=== PATIENT | female | born 1960 | race Caucasian/White ===

== ENCOUNTER 2018-02-11 08:37 | Emergency (ER) | payer SELFPAY ==
--- NOTE | 2018-02-11 09:04 | EDPHYS ---
Physician Documentation [facility] Name: Samantha Decker Age: 57 yrs Sex: Female : 1960 Arrival Date: 02/11/2018 Time: 08:42 Bed 13 Private MD: None, None ED Physician Catina Turner HPI: 02/11 09:00 This 57 yrs old Female presents to ER via Ambulatory with complaints of ma2 Cough, Chest Congestion, Back Pain. 09:00 This 57 yrs old Female presents to ER via Ambulatory with complaints of ma2 Cough, Chest Congestion, Back Pain. 09:00 The patient or guardian reports cough. Onset: The symptoms/episode began/occurred ma2 gradually, 2 week(s) ago. Severity of symptoms: At their worst the symptoms were moderate, in the emergency department the symptoms have improved. Modifying factors: The symptoms are alleviated by nothing, the symptoms are aggravated by exertion. Associated signs and symptoms: Pertinent positives: Pertinent negatives: chest pain, diarrhea, ear ache, fever, nausea, rhinorrhea, sore throat, vomiting. healthy non smoker here with cough x 2 weeks . Historical: - Allergies: 08:53 No Known Allergies; ss - PMHx: 08:53 Hypothyroidism; Anxiety; GERD; ss - PSHx: 08:53 Thyroidectomy; Gastric Bypass; ss - Immunization history:: Adult Immunizations up to date. - Social history:: Smoking status: Patient/guardian denies using tobacco, Patient/guardian denies using alcohol, street drugs, The patient lives with family. - Ebola Screening: : Patient denies exposure to infectious person Patient denies travel to an Ebola-affected area in the 21 days before illness onset. - Family history:: not pertinent. ROS: 09:00 Respiratory: Positive for cough, Negative for dyspnea on exertion, hemoptysis, ma2 orthopnea, shortness of breath, sputum production, wheezing, acute changes. 09:00 All other systems are negative. Exam: 09:00 Constitutional: This is a well developed, well nourished patient who is awake, alert, ma2 and in no acute distress. Chest/axilla: Normal chest wall appearance and motion. Nontender with no deformity. No lesions are appreciated. Cardiovascular: Regular rate and rhythm with a normal S1 and S2. No gallops, murmurs, or rubs. Normal PMI, no JVD. No pulse deficits. Respiratory: Lungs have equal breath sounds bilaterally, clear to auscultation and percussion. No rales, rhonchi or wheezes noted. No increased work of breathing, no retractions or nasal flaring. Abdomen/GI: Soft, non-tender, with normal bowel sounds. No distension or tympany. No guarding or rebound. No evidence of tenderness throughout. Back: No spinal tenderness. No costovertebral tenderness. Full range of motion. MS/ Extremity: Pulses equal, no cyanosis. Neurovascular intact. Full, normal range of motion. Vital Signs: 08:53 BP 133 / 75; Pulse 81; Resp 16; Temp 97.8(TE); Pulse Ox 100% on R/A; Weight 68.49 kg; ss Height 5 ft. 6 in. (167.64 cm); Pain 7/10; 09:57 BP 127 / 78; Pulse 91; Resp 18; Temp 97.6; Pulse Ox 99% on R/A; ph 08:53 Body Mass Index 24.37 (68.49 kg, 167.64 cm) ss MDM: 08:47 Patient medically screened. ma2 09:00 Differential Diagnosis: Bronchitis Sinusitis Pharyngitis Allergic Rhinitis Asthma ma2 Exacerbation. 09:00 Data reviewed: vital signs, nurses notes. Data interpreted: floor covering layer: not ma2 applicable for this patient encounter. Counseling: I had a detailed discussion with the patient and/or guardian regarding: the historical points, exam findings, and any diagnostic results supporting the discharge/admit diagnosis, the presence of at least one elevated blood pressure reading (>120/80) during this emergency department visit, lab results, the need for outpatient follow up. Response to treatment: the patient's symptoms have markedly improved after treatment. Administered Medications: 09:20 Drug: AZITHromycin 500 mg Route: PO; ph 09:58 Follow up: Response: No adverse reaction ph 09:21 Drug: DuoNeb (3:1) (2.5 mg - 0.5 mg) 3 ml Route: Nebulizer; ph 09:59 Follow up: Response: No adverse reaction ph 09:21 Drug: TORadol 60 mg Route: IM; Site: right deltoid; ph 09:59 Follow up: Response: No adverse reaction; Pain is decreased ph Disposition: 02/11/18 09:03 Discharged to Home. Impression: Acute upper respiratory infection, unspecified. - Condition is Stable. - Discharge Instructions: Upper Respiratory Infection, Adult. - Prescriptions for Tylenol- Codeine #3 300-30 mg Oral Tablet - take 2 tablet by ORAL route every 6 hours As needed; 30 tablet. Zithromax Z- Ray 250 mg Oral Tablet - take 1 tablet by ORAL route as directed for 5 days Day 1 - take two (2) tablets one time. Day 2, 3, 4 , 5 take one (1) tablet once daily.; 6 tablet. Albuterol Sulfate 90 mcg/actuation - inhale 1-2 puff by INHALATION route every 4-6 hours; 1 Inhaler. - Medication Reconciliation Form, Thank You Letter, Antibiotic Education, Prescription Opioid Use form. - Follow up: Private Physician; When: Tomorrow; Reason: Continuance of care. - Problem is new. - Symptoms are unchanged. Signatures: Marlene Dickson RN RN Leah Leyva RN RN Catina Turner MD MD ma2 Corrections: (The following items were deleted from the chart) 09:59 09:03 02/11/2018 09:03 Discharged to Home. Impression: Acute upper respiratory ph infection, unspecified. Condition is Stable. Forms are Medication Reconciliation Form, Thank You Letter, Antibiotic Education, Prescription Opioid Use. Follow up: Private Physician; When: Tomorrow; Reason: Continuance of care. Problem is new. Symptoms are unchanged. ma2
--- NOTE | 2018-02-11 09:04 | ER ---
Nurse's Notes [facility] Name: Samantha Decker Age: 57 yrs Sex: Female : 1960 Arrival Date: 02/11/2018 Time: 08:42 Bed 13 Private MD: None, None Diagnosis: Acute upper respiratory infection, unspecified Presentation: 02/11 08:50 Presenting complaint: Patient states: cough, chest congestion and nasal drainage x 1.5 ss weeks. Pt reports she has had low back pain x 3 days she believes from coughing. Transition of care: patient was not received from another setting of care. Onset of symptoms was February 01, 2018. Risk Assessment: Do you want to hurt yourself or someone else? Patient reports no desire to harm self or others. Initial Sepsis Screen: Does the patient meet any 2 criteria? No. Patient's initial sepsis screen is negative. Does the patient have a suspected source of infection? Yes: Productive cough/pneumonia. Care prior to arrival: None. 08:50 Method Of Arrival: Ambulatory ss 08:50 Acuity: KARRIE 3 ss Historical: - Allergies: 08:53 No Known Allergies; ss - PMHx: 08:53 Hypothyroidism; Anxiety; GERD; ss - PSHx: 08:53 Thyroidectomy; Gastric Bypass; ss - Immunization history:: Adult Immunizations up to date. - Social history:: Smoking status: Patient/guardian denies using tobacco, Patient/guardian denies using alcohol, street drugs, The patient lives with family. - Ebola Screening: : Patient denies exposure to infectious person Patient denies travel to an Ebola-affected area in the 21 days before illness onset. - Family history:: not pertinent. Screenin:54 Abuse screen: Denies threats or abuse. Denies injuries from another. Nutritional ph screening: No deficits noted. Tuberculosis screening: No symptoms or risk factors identified. Fall Risk None identified. Assessment: 09:15 General: Appears in no apparent distress. uncomfortable, slender, well groomed, ph Behavior is calm, cooperative, appropriate for age. Pain: Complains of pain in mid back area. Neuro: Level of Consciousness is awake, alert, obeys commands, Oriented to person, place, time, situation. Cardiovascular: Capillary refill < 3 seconds in bilateral fingers Patient's skin is warm and dry. Respiratory: Reports cough that is pain with cough pain with movement pain with respiration Airway is patent Respiratory effort is even, unlabored, Respiratory pattern is regular, symmetrical, Breath sounds are clear bilaterally. GI: No signs and/or symptoms were reported involving the gastrointestinal system. Patient currently denies diarrhea, nausea, vomiting. Derm: Skin is intact, is fragile, Skin is pink, warm \T\ dry. Musculoskeletal: Circulation, motion, and sensation intact. Range of motion: intact in all extremities. 09:54 Reassessment: Patient appears in no apparent distress at this time. Patient and/or ph family updated on plan of care and expected duration. Pain level reassessed. Patient is alert, oriented x 3, equal unlabored respirations, skin warm/dry/pink. Pt reports that breathing has improved after neb tx, provided pt w/ list of PCPs and instructed her to follow-up. Vital Signs: 08:53 BP 133 / 75; Pulse 81; Resp 16; Temp 97.8(TE); Pulse Ox 100% on R/A; Weight 68.49 kg; ss Height 5 ft. 6 in. (167.64 cm); Pain 7/10; 09:57 BP 127 / 78; Pulse 91; Resp 18; Temp 97.6; Pulse Ox 99% on R/A; ph 08:53 Body Mass Index 24.37 (68.49 kg, 167.64 cm) ED Course: 08:42 Patient arrived in ED. sb2 08:43 None, None is Private Physician. sb2 08:46 Catina Turner MD is Attending Physician. ma2 08:52 Triage completed. ss 08:53 Arm band placed on right wrist. ss 08:54 Leah Leyva, FAN is Primary Nurse. ph 08:55 Patient has correct armband on for positive identification. Placed in gown. Bed in low ph position. Call light in reach. Side rails up X 1. Pulse ox on. NIBP on. Warm blanket given. 09:57 Assist provider with bone marrow aspiration. Patient did not have IV access during this emergency room visit. Administered Medications: 09:20 Drug: AZITHromycin 500 mg Route: PO; ph 09:58 Follow up: Response: No adverse reaction ph 09:21 Drug: DuoNeb (3:1) (2.5 mg - 0.5 mg) 3 ml Route: Nebulizer; ph 09:59 Follow up: Response: No adverse reaction ph 09:21 Drug: TORadol 60 mg Route: IM; Site: right deltoid; ph 09:59 Follow up: Response: No adverse reaction; Pain is decreased ph Outcome: 09:03 Discharge ordered by . michelle 09:58 Discharged to home ambulatory. ph 09:58 Condition: good 09:58 Discharge instructions given to patient, Instructed on discharge instructions, follow up and referral plans. medication usage, Demonstrated understanding of instructions, follow-up care, medications, Prescriptions given X 3. 09:59 Patient left the ED. ph Signatures: Marlene Dickson, RN RN Leah Leyva RN RN Catina Turner MD MD ma2 Acacia Babcock sb2
[2018-02-11] MEDS ORDERED: AZITHROMYCIN 250 MG TAB ONE (09:17)
[2018-02-11] MEDS ORDERED: IPRATROPIUM BROM 0.5MG/2.5ML ONE (09:18)
[2018-02-11] MEDS ORDERED: ALBUTEROL 2.5 MG/3 ML NEB SOL ONE (09:18)
[2018-02-11] MEDS ORDERED: KETOROLAC 30 MG/ML INJ ONE (09:18)
== END 2018-02-11 09:59 | disposition home or self-care (01) ==
LOC: ER 08:37
DX: J06.9 Acute upper respiratory infection, unspecified (principal)
CPT/HCPCS: 94640; 96372; 99285

== ENCOUNTER 2018-09-01 10:30 | Emergency (ER) | payer SELFPAY ==
[2018-09-01] MEDS ORDERED: ONDANSETRON 4 MG/2 ML VIAL ONE (11:07)
[2018-09-01] MEDS ORDERED: KETOROLAC 30 MG/ML INJ ONE (11:07)
[2018-09-01] MEDS ORDERED: NA CHLORIDE 0.9% 1,000 ML ONE (11:07)
--- NOTE | 2018-09-01 11:26 | RAD REPORT ---
EXAM DESCRIPTION: CT - Head C Spine Cap Wo Con - 09/01/2018 11:09 am CLINICAL HISTORY: Trauma, head and neck injury. Chest, abdomen and pelvis pain. PAIN COMPARISON: Facial Bones W/ Mpr dated 09/01/2018 TECHNIQUE: CT head without contrast. CT cervical spine without contrast with coronal and sagittal reformatted images. CT chest, abdomen and pelvis without contrast with coronal and sagittal reformatted images of the spi ne. All CT scans are performed using dose optimization technique as appropriate and may include automated exposure control or mA/KV adjustment according to patient size. FINDINGS: CT HEAD WITHOUT CONTRAST: No intracranial hemorrhage, hydrocephalus or extra-axial fluid collection. No areas of brain edema o r midline shift. The paranasal sinuses and mastoids are clear. The calvarium is intact. CT CERVICAL SPINE WITHOUT CONTRAST: No fracture or subluxation. The prevertebral soft tissues are normal in thickness. CT CHEST, ABDOMEN, PELVIS WITHOUT CONTRAST: NOTE: Lack of contrast is a significant limitation in the assessment of trauma related findings. Spec ifically, solid organ, vascular and bowel evaluation is significantly limited. The lungs are clear.Postsurgical changes are present at the gastroesophageal junction region. A small hiatal hernia is present.No pneumothorax or pericardial/pleural fluid. No evidence of intra-abdominal visceral injury, free fluid or free air is seen within the above detai led limitations. No concerning pelvic findings. No fractures. IMPRESSION: Negative for acute traumatic findings within the above detailed limitations.
--- NOTE | 2018-09-01 11:27 | RAD REPORT ---
EXAM DESCRIPTION: CT - CTFB CLINICAL HISTORY: PAIN Trauma, right-sided facial pain and swelling. COMPARISON: No comparisons TECHNIQUE: Axial 2 mm thick images of the face were obtained with sagittal and coronal reconstructio n images. All CT scans are performed using dose optimization technique as appropriate and may include automated exposure control or mA/KV adjustment according to patient size. FINDINGS: No acute facial bone fracture is seen.The mandible is intact. The globes and orbital contents are grossly unremarkable.The paranasal sinuses and mastoids are clear . IMPRESSION: Negative for facial bone fracture.
--- NOTE | 2018-09-01 11:41 | RAD REPORT ---
EXAM DESCRIPTION: RAD - Knee Left 3 View - 09/01/2018 11:34 am CLINICAL HISTORY: PAIN Fall, trauma, knee pain COMPARISON: No comparisons FINDINGS: Mild arthritic changes are present. No fracture, dislocation or aggressive marrow lesion. Small amount of suprapatellar joint fluid evident.
[2018-09-01 11:54] LABS: Absolute Monocytes 0.5 K/uL (0.1-1.3); Absolute Neutrophil 3.5 K/uL (1.8-8.0); Basophils % 0.5 % (0-1.3); Eosinophils % 1.3 % (0-4.4); Hematocrit 35.2 % (36.0-45.0); Lymphocytes % 32.4 % (15.3-44.8); MPV 8.4 fL (7.6-11.3); Monocytes % 8.5 % (3.3-12.3)
--- NOTE | 2018-09-01 11:59 | ER ---
Nurse's Notes [facility] Name: Samantha Decker Age: 58 yrs Sex: Female : 1960 Arrival Date: 09/01/2018 Time: 10:33 Bed 5 Private MD: None, None Diagnosis: Fall due to bumping against object;Low back pain;Urinary tract infection, site not specified;Contusion of other part of head-facial Presentation: 09/01 10:35 Presenting complaint: Patient states: i tripped and fell Friday, we are packing tw2 to move and i had my hands in my robe and i tripped and fell landed right on your face, the pain has gotten worse, i was dizzy earlier now i am having black spots in my vision, i hit my knee too and my lower back hurts on my left side, left knee and left back. Transition of care: patient was not received from another setting of care. Onset of symptoms was September 01, 2018. Risk Assessment: Do you want to hurt yourself or someone else? Patient reports no desire to harm self or others. Initial Sepsis Screen: Does the patient meet any 2 criteria? No. Patient's initial sepsis screen is negative. Does the patient have a suspected source of infection? No. Patient's initial sepsis screen is negative. Care prior to arrival: None. 10:35 Method Of Arrival: Ambulatory tw2 10:35 Acuity: KARRIE 3 tw2 10:42 Mechanism of Injury: Fall from standing position. Trauma event details: Injury occurred sv in the [facility], Injury occurred: at home. Injury occurred: August 30, 2018. Triage Assessment: 10:36 General: Appears in no apparent distress. Behavior is calm, cooperative, appropriate tw2 for age. Pain: Complains of pain in face, right ear, left ear and left knee. Neuro: Reports headache "all over and it has gotten worse" "i am seeing black spots in the LEFT eye and sometimes in my right eye". Trauma Activation: Not Applicable Physician: ED Physician; Name: ; Notified At: ; Arrived At: Physician: General Surgeon; Name: ; Notified At: ; Arrived At: Physician: Radiology; Name: ; Notified At: ; Arrived At: Physician: Respiratory; Name: ; Notified At: ; Arrived At: Physician: Lab; Name: ; Notified At: ; Arrived At: Historical: - Allergies: 10:39 No Known Allergies; tw2 - Home Meds: 10:39 Celexa Oral [Active]; Omeprazole Oral [Active]; levothyroxine 137 mcg tab 2 tabs once tw2 daily [Active]; - PMHx: 10:39 Anxiety; GERD; Hypothyroidism; tw2 - PSHx: 10:39 Thyroidectomy; Gastric Bypass; tw2 - Immunization history:: Adult Immunizations Last tetanus immunization: < 10 years ago Last tetanus immunization:. - Social history:: Smoking status: . - Ebola Screening: : Patient denies travel to an Ebola-affected area in the 21 days before illness onset. - Family history:: not pertinent. Screenin:41 Abuse screen: Denies threats or abuse. Denies injuries from another. Nutritional sv screening: No deficits noted. Tuberculosis screening: No symptoms or risk factors identified. Fall Risk None identified. Assessment: 11:25 General: Appears in no apparent distress. uncomfortable, slender, well groomed, well sv developed, Behavior is calm, cooperative, appropriate for age. Pain: Complains of pain in face, scalp, back, left arm and left leg Pain currently is 10 out of 10 on a pain scale. Pain began 2-3 days ago. Is continuous. Neuro: Level of Consciousness is awake, alert, obeys commands, Oriented to person, place, time, situation, Moves all extremities. Full function Gait is steady, Speech is normal, Reports "seeing floaters" in her vision. . Respiratory: Airway is patent Respiratory effort is even, unlabored, Respiratory pattern is regular, symmetrical. Derm: Skin is pink, warm \\T\\ dry. Bruising that is dark purple, on face. Musculoskeletal: Range of motion: intact in all extremities. 12:20 Reassessment: Patient appears in no apparent distress at this time. No changes from sv previously documented assessment. Patient and/or family updated on plan of care and expected duration. Pain level reassessed. Patient is alert, oriented x 3, equal unlabored respirations, skin warm/dry/pink. 13:10 Reassessment: Patient appears in no apparent distress at this time. No changes from sv previously documented assessment. Patient and/or family updated on plan of care and expected duration. Pain level reassessed. Patient is alert, oriented x 3, equal unlabored respirations, skin warm/dry/pink. Vital Signs: 10:39 BP 161 / 80; Pulse 70; Resp 17; Temp 97.5(TE); Pulse Ox 100% on R/A; Weight 76.2 kg tw2 (R); Height 5 ft. 7 in. (170.18 cm); Pain 10/10; 11:30 BP 162 / 77; Pulse 63 MON; Resp 17; Pulse Ox 100% ; sv 10:39 Body Mass Index 26.31 (76.20 kg, 170.18 cm) tw2 11:30 Sinus Rhythm sv [place] Coma Score: 10:41 Eye Response: spontaneous(4). Verbal Response: oriented(5). Motor Response: obeys sv commands(6). Total: 15. Trauma Score (Adult): 10:41 Eye Response: spontaneous(1); Verbal Response: oriented(1); Motor Response: obeys sv commands(2); Systolic BP: > 89 mm Hg(4); Respiratory Rate: 10 to 29 per min(4); Nick Score: 15; Trauma Score: 12 ED Course: 10:33 Patient arrived in ED. mr 10:33 None, None is Private Physician. mr 10:36 Triage completed. tw2 10:37 Arm band placed on. tw2 10:40 Berry Arzola MD is Attending Physician. rao 10:41 Mirian Messina, FAN is Primary Nurse. sv 10:41 Patient has correct armband on for positive identification. Placed in gown. Bed in low sv position. Call light in reach. Door closed. Head of bed elevated. 10:42 Patient maintains SpO2 saturation greater than 95% on room air. sv 10:43 Thermoregulation: warm blanket given to patient. sv 10:[address] via stretcher. sv 11:07 CT completed. Patient tolerated procedure well. Patient moved back from CT. [id number] 11:09 CT Traumagram (Head C Spine CAP wo con) In Process Unspecified. EDMS 11:09 Facial Bones W/O Con CT In Process Unspecified. EDMS 11:29 X-ray completed. Portable x-ray completed in exam room. Patient tolerated procedure mh1 well. 11:30 Knee Left 3 View XRAY In Process Unspecified. EDMS 11:30 Initial lab(s) drawn, by me, sent to lab. T\\T\\S collected, blood band applied to patient. sv Inserted saline lock: 20 gauge in right antecubital area, using aseptic technique. Blood collected. Flushed right antecubital with 5 ml normal saline. 11:59 Don Ozuna MD is Referral Physician. rao 12:50 No provider procedures requiring assistance completed. IV discontinued, intact, sv bleeding controlled, No redness/swelling at site. Pressure dressing applied. Knee immobilizer applied on left knee. Administered Medications: 11:35 Drug: NS 0.9% 1000 ml Route: IV; Rate: 1 bolus; Site: right antecubital; sv 12:30 Follow up: Response: No adverse reaction; IV Status: Completed infusion; IV Intake: sv 1000ml 11:35 Drug: Zofran 4 mg Route: IVP; Site: right antecubital; sv 12:00 Follow up: Response: No adverse reaction sv 11:37 Drug: TORadol 30 mg Route: IVP; Site: right antecubital; sv 12:00 Follow up: Response: No adverse reaction sv Intake: 10:41 PO: 0ml; Total: 0ml. sv 12:30 IV: 1000ml; Total: 1000ml. sv Output: 10:41 Urine: 0ml; Total: 0ml. sv Outcome: 11:59 Discharge ordered by . rao 13:16 Discharged to home via wheelchair. sv 13:16 Condition: stable 13:16 Discharge instructions given to patient, Instructed on discharge instructions, follow up and referral plans. no drinking with medication, no driving heavy equipment, medication usage, knee immobilizer application Demonstrated understanding of instructions, follow-up care, medications, knee immobilizer application Prescriptions given X 3. 13:17 Patient left the ED. sv Signatures: Dispatcher [employer] Mirian Osorio RN RN sv Anderson, Corey, MD MD cha Rivera, Natalya Song 1 Rupal Flores RN RN tw2 Michell [email or web address]
--- NOTE | 2018-09-01 12:00 | EDPHYS ---
Physician Documentation [facility] Name: Samantha Decker Age: 58 yrs Sex: Female : 1960 Arrival Date: 09/01/2018 Time: 10:33 Bed 5 Private MD: None, None ED Physician Berry Arzola HPI: 09/01 10:51 This 58 yrs old Female presents to ER via Ambulatory with complaints of Fall rao Injury. 10:51 Details of fall: The patient fell from an upright position, while walking. Onset: The rao symptoms/episode began/occurred 3 day(s) ago. Associated injuries: The patient sustained injury to the head, injury to the low back, left knee, decreased range of motion, painful injury, swelling. Severity of symptoms: At their worst the symptoms were mild, moderate, in the emergency department the symptoms are unchanged. The patient has not experienced similar symptoms in the past. Historical: - Allergies: 10:39 No Known Allergies; tw2 - Home Meds: 10:39 Celexa Oral [Active]; Omeprazole Oral [Active]; levothyroxine 137 mcg tab 2 tabs once tw2 daily [Active]; - PMHx: 10:39 Anxiety; GERD; Hypothyroidism; tw2 - PSHx: 10:39 Thyroidectomy; Gastric Bypass; tw2 - Immunization history:: Adult Immunizations Last tetanus immunization: < 10 years ago Last tetanus immunization:. - Social history:: Smoking status: . - Ebola Screening: : Patient denies travel to an Ebola-affected area in the 21 days before illness onset. - Family history:: not pertinent. ROS: 10:51 Constitutional: Negative for fever, chills, and weight loss, Eyes: Negative for injury, rao pain, redness, and discharge, Neck: Negative for injury, pain, and swelling, Cardiovascular: Negative for chest pain, palpitations, and edema, Respiratory: Negative for shortness of breath, cough, wheezing, and pleuritic chest pain, Abdomen/GI: Negative for abdominal pain, nausea, vomiting, diarrhea, and constipation, Back: Negative for injury and pain, : Negative for injury, bleeding, discharge, and swelling, MS/Extremity: Negative for injury and deformity, Skin: Negative for injury, rash, and discoloration, Neuro: Negative for headache, weakness, numbness, tingling, and seizure, Psych: Negative for depression, anxiety, suicide ideation, homicidal ideation, and hallucinations, Allergy/Immunology: Negative for hives, rash, and allergies, Endocrine: Negative for neck swelling, polydipsia, polyuria, polyphagia, and marked weight changes, Hematologic/Lymphatic: Negative for swollen nodes, abnormal bleeding, and unusual bruising. 10:51 ENT: Positive for injury or acute deformity, contusion, sinus pain. 10:51 Back: Positive for decreased range of motion, pain at rest, of the lumbar area. Exam: 10:51 Constitutional: This is a well developed, well nourished patient who is awake, alert, rao and in no acute distress. Eyes: Pupils equal round and reactive to light, extra-ocular motions intact. Lids and lashes normal. Conjunctiva and sclera are non-icteric and not injected. Cornea within normal limits. Periorbital areas with no swelling, redness, or edema. ENT: Nares patent. No nasal discharge, no septal abnormalities noted. Tympanic membranes are normal and external auditory canals are clear. Oropharynx with no redness, swelling, or masses, exudates, or evidence of obstruction, uvula midline. Mucous membranes moist. Neck: Trachea midline, no thyromegaly or masses palpated, and no cervical lymphadenopathy. Supple, full range of motion without nuchal rigidity, or vertebral point tenderness. No Meningismus. Chest/axilla: Normal chest wall appearance and motion. Nontender with no deformity. No lesions are appreciated. Cardiovascular: Regular rate and rhythm with a normal S1 and S2. No gallops, murmurs, or rubs. Normal PMI, no JVD. No pulse deficits. Respiratory: Lungs have equal breath sounds bilaterally, clear to auscultation and percussion. No rales, rhonchi or wheezes noted. No increased work of breathing, no retractions or nasal flaring. Abdomen/GI: Soft, non-tender, with normal bowel sounds. No distension or tympany. No guarding or rebound. No evidence of tenderness throughout. Female : Normal external genitalia. Skin: Warm, dry with normal turgor. Normal color with no rashes, no lesions, and no evidence of cellulitis. MS/ Extremity: Pulses equal, no cyanosis. Neurovascular intact. Full, normal range of motion. Neuro: Awake and alert, GCS 15, oriented to person, place, time, and situation. Cranial nerves II-XII grossly intact. Motor strength 5/5 in all extremities. Sensory grossly intact. Cerebellar exam normal. Normal gait. Psych: Awake, alert, with orientation to person, place and time. Behavior, mood, and affect are within normal limits. 10:51 Head/face: Noted is contusion, raccoon eye(s), bilaterally. 10:51 Back: pain, that is moderate, of the lumbar area, ROM is painful, normal spinal alignment noted, CVA tenderness, that is mild, vertebral tenderness, is not appreciated, muscle spasm, is appreciated in the left low back, left mid back, right mid back and right low back. Vital Signs: 10:39 BP 161 / 80; Pulse 70; Resp 17; Temp 97.5(TE); Pulse Ox 100% on R/A; Weight 76.2 kg tw2 (R); Height 5 ft. 7 in. (170.18 cm); Pain 10/10; 11:30 BP 162 / 77; Pulse 63 MON; Resp 17; Pulse Ox 100% ; sv 10:39 Body Mass Index 26.31 (76.20 kg, 170.18 cm) tw2 11:30 Sinus Rhythm sv Nick Coma Score: 10:41 Eye Response: spontaneous(4). Verbal Response: oriented(5). Motor Response: obeys sv commands(6). Total: 15. Trauma Score (Adult): 10:41 Eye Response: spontaneous(1); Verbal Response: oriented(1); Motor Response: obeys sv commands(2); Systolic BP: > 89 mm Hg(4); Respiratory Rate: 10 to 29 per min(4); Nick Score: 15; Trauma Score: 12 MDM: 10:40 Patient medically screened. [facility] 10:55 Data reviewed: vital signs, nurses notes, lab test result(s), radiologic studies, CT rao scan, plain films. 09/01 10:51 Order name: Basic Metabolic Panel; Complete Time: 12:19 [facility] 09/01 10:51 Order name: CBC with Diff; Complete Time: 11:58 [facility] 09/01 10:51 Order name: Creatinine for Radiology; Complete Time: 12:19 [facility] 09/01 10:51 Order name: Type And Screen [facility] 09/01 11:35 Order name: Urine Dipstick--Ancillary (enter results) 09/01 10:51 Order name: CT Traumagram (Head C Spine CAP wo con); Complete Time: 11:53 [facility] 09/01 10:51 Order name: Labs collected and sent; Complete Time: 11:50 [facility] 09/01 10:51 Order name: Urine Dipstick-Ancillary (obtain specimen); Complete Time: 11:44 [facility] 09/01 10:51 Order name: Facial Bones W/O Con CT; Complete Time: 11:53 [facility] 09/01 10:51 Order name: Knee Left 3 View XRAY; Complete Time: 11:53 [facility] 09/01 11:55 Order name: Knee Immobilizer; Complete Time: 13:15 [facility] 09/01 11:55 Order name: Ice pack; Complete Time: 13:15 [facility] Administered Medications: 11:35 Drug: NS 0.9% 1000 ml Route: IV; Rate: 1 bolus; Site: right antecubital; sv 12:30 Follow up: Response: No adverse reaction; IV Status: Completed infusion; IV Intake: sv 1000ml 11:35 Drug: Zofran 4 mg Route: IVP; Site: right antecubital; sv 12:00 Follow up: Response: No adverse reaction sv 11:37 Drug: TORadol 30 mg Route: IVP; Site: right antecubital; sv 12:00 Follow up: Response: No adverse reaction sv Disposition: 09/01/18 11:59 Discharged to Home. Impression: Fall due to bumping against object, Low back pain, Urinary tract infection, site not specified, Contusion of other part of head - facial. - Condition is Stable. - Discharge Instructions: Back Pain, Adult, Facial or Scalp Contusion, Musculoskeletal Pain, Urinary Tract Infection, Adult, Back Injury Prevention, Etci-nc-Hmsz, Urinary Tract Infection, Adult, Lwzk-yt-[id number], Facial or Scalp Contusion, Tkay-xr-Hphw. - Prescriptions for Skelaxin 800 mg Oral Tablet - take 1 tablet by ORAL route every 8 hours As needed; 21 tablet. Tylenol- Codeine #3 300-30 mg Oral Tablet - take 2 tablet by ORAL route every 6 hours As needed; 30 tablet. Bactrim DS 800- 160 mg Oral Tablet - take 1 tablet by ORAL route every 12 hours for 7 days; 14 tablet. - Medication Reconciliation Form, Thank You Letter, Antibiotic Education, Prescription Opioid Use, Work release form form. - Follow up: Private Physician; When: 2 - 3 days; Reason: Recheck today's complaints, Continuance of care, Re-evaluation by your physician. Follow up: Don Ozuna; When: 2 - 3 days; Reason: Recheck today's complaints, Continuance of care, Re-evaluation by your physician. - Problem is new. - Symptoms have improved. Signatures: Dispatcher [employer] Mirian Osorio RN RN sv Anderson, Corey, MD MD cha Wise, Tara, RN RN tw2 Corrections: (The following items were deleted from the chart) 13:17 11:59 09/01/2018 11:59 Discharged to Home. Impression: Fall due to bumping against sv object; Low back pain; Urinary tract infection, site not specified; Contusion of other part of head - facial. Condition is Stable. Discharge Instructions: Back Pain, Adult, Facial or Scalp Contusion, Musculoskeletal Pain, Urinary Tract Infection, Adult, Back Injury Prevention, Hoid-lt-Gqpc, Urinary Tract Infection, Adult, Ewrv-xw-Jykg, Facial or Scalp Contusion, Jvpv-kp-Tusw. Prescriptions for Skelaxin 800 mg Oral Tablet - take 1 tablet by ORAL route every 8 hours As needed; 21 tablet, Tylenol-Codeine #3 300-30 mg Oral Tablet - take 2 tablet by ORAL route every 6 hours As needed; 30 tablet, Bactrim DS 800-160 mg Oral Tablet - take 1 tablet by ORAL route every 12 hours for 7 days; 14 tablet. and Forms are Medication Reconciliation Form, Thank You Letter, Antibiotic Education, Prescription Opioid Use. Follow up: Private Physician; When: 2 - 3 days; Reason: Recheck today's complaints, Continuance of care, Re-evaluation by your physician. Follow up: Don Ozuna; When: 2 - 3 days; Reason: Recheck today's complaints, Continuance of care, Re-evaluation by your physician. Problem is new. Symptoms have improved. rao
[2018-09-01 12:08] LABS: Potassium 4.1 mmol/L (3.5-5.1)
[2018-09-01 12:50] LABS: Urine Blood 1+ (NEG); Urine Glucose NEGATIVE (NEG); Urine Protein NEGATIVE (NEG)
== END 2018-09-01 13:17 | disposition home or self-care (01) ==
LOC: ER 10:30
DX: S00.83XA Contusion of other part of head, initial encounter (principal); N39.0 Urinary tract infection, site not specified; W18.00XA Striking against unspecified object with subsequent fall, initial encounter; Y93.01 Activity, walking, marching and hiking; Y92.9 Unspecified place or not applicable; F41.9 Anxiety disorder, unspecified; E03.9 Hypothyroidism, unspecified; K21.9 Gastro-esophageal reflux disease without esophagitis
CPT/HCPCS: 36415; 70450; 70486; 71250; 72125; 76377; 80048; 81003; 85025; 86850; 86900; 86901; 96361; 96374; 96375; 99285; J2405; J7030

== ENCOUNTER 2019-02-16 08:57 | Emergency (ER) | payer SELFPAY ==
--- NOTE | 2019-02-16 10:46 | RAD REPORT ---
EXAM DESCRIPTION: CT - Head C Spine Mpr Wo Con - 02/16/2019 10:30 am CLINICAL HISTORY: Head and neck injury status post fall. Head and neck pain COMPARISON: CT August 2018 TECHNIQUE: Computed axial tomography of the head and cervical spine was obtained. Sagittal and coronal reconstruction was performed. All CT scans are performed using dose optimization technique as appropriate and may include automated exposure control or mA/KV adjustment according to patient size. FINDINGS: Mild left frontal scalp swelling An intracranial bleed is not seen. The ventricles are normal in caliber. An extra-axial fluid collect ion is not noted.Fluid within the visualized sinuses and mastoids is not seen A cervical fracture is not visualized. No dislocation is noted. IMPRESSION: No acute intracranial abnormality is seen. A cervical fracture is not visualized. If the patient continues to have symptoms to suggest intracra nial /spinal cord pathology then MRI would be recommended
--- NOTE | 2019-02-16 11:02 | ER ---
Nurse's Notes [facility] Name: Samantha Decker Age: 58 yrs Sex: Female : 1960 Arrival Date: 02/16/2019 Time: 08:59 Bed 6 Private MD: None, None Diagnosis: Fall due to bumping against object;Superficial injury of head;Low back pain Presentation: 02/16 09:12 Presenting complaint: Headache, left sided facial pain, mid back pain, and blurred hb vision in left eye after fall in shower 1 month ago. Transition of care: patient was not received from another setting of care. Onset of symptoms was December 2018. Risk Assessment: Do you want to hurt yourself or someone else? Patient reports no desire to harm self or others. Initial Sepsis Screen: Does the patient meet any 2 criteria? No. Patient's initial sepsis screen is negative. Does the patient have a suspected source of infection? No. Patient's initial sepsis screen is negative. Care prior to arrival: None. 09:12 Method Of Arrival: Ambulatory hb 09:12 Acuity: KARRIE 3 hb Historical: - Allergies: 09:16 No Known Allergies; hb - Home Meds: 09:16 omeprazole 40 mg oral cpDR once daily [Active]; levothyroxine 137 mcg tab 2 tabs once hb daily [Active]; Celexa 40 mg oral tab once daily [Active]; temazepam 30 mg Oral cap 1 cap twice a day [Active]; - PMHx: 09:16 Anxiety; GERD; Hypothyroidism; hb - PSHx: 09:16 Thyroidectomy; Gastric Bypass; hb - Immunization history:: Adult Immunizations up to date. - Social history:: Smoking status: Patient/guardian denies using tobacco. - Ebola Screening: : No symptoms or risks identified at this time. - Family history:: not pertinent. Screenin:38 Abuse screen: Denies threats or abuse. Denies injuries from another. Nutritional jl7 screening: No deficits noted. Tuberculosis screening: No symptoms or risk factors identified. Fall Risk None identified. Assessment: 09:38 General: Appears in no apparent distress. uncomfortable, Behavior is calm, cooperative, jl7 appropriate for age. Pain: Complains of pain in forehead and left eye Pain does not radiate. Pain currently is 8 out of 10 on a pain scale. Quality of pain is described as aching, Is continuous. Pain: Complains of pain in thoracic area Pain radiates to lumbar area and left low back Pain currently is 8 out of 10 on a pain scale. Quality of pain is described as aching, Is continuous. Neuro: Level of Consciousness is awake, alert, obeys commands, Oriented to person, place, time, situation. Cardiovascular: Patient's skin is warm and dry. Respiratory: Airway is patent Respiratory effort is even, unlabored, Respiratory pattern is regular, symmetrical. GI: No signs and/or symptoms were reported involving the gastrointestinal system. : No signs and/or symptoms were reported regarding the genitourinary system. EENT: No signs and/or symptoms were reported regarding the EENT system. Derm: Skin is pink, warm \T\ dry. Musculoskeletal: Tenderness present in thoracic area, lumbar area and left low back. Musculoskeletal: Tenderness present in forehead. 11:06 Reassessment: Dr. Arzola at bedside discussing plan of care. jl7 Vital Signs: 09:16 BP 153 / 87; Pulse 77; Resp 16; Temp 98.3; Pulse Ox 99% on R/A; Weight 77.11 kg; Height hb 5 ft. 6 in. (167.64 cm); Pain 8/10; 10:31 BP 151 / 79; Pulse 67; Resp 16 S; Pulse Ox 100% on R/A; jl7 09:16 Body Mass Index 27.44 (77.11 kg, 167.64 cm) hb Visual Acuity: 09:36 Left Eye Visual acuity 20/70, ; Right Eye Visual acuity 20/25, ; Both Eyes Visual jl7 acuity 20/20; Without Lenses; ED Course: 08:59 Patient arrived in ED. ag5 09:00 None, None is Private Physician. ag5 09:15 Triage completed. hb 09:16 Arm band placed on. hb 09:19 Nurys Bray RN is Primary Nurse. jl7 09:37 Berry Arzola MD is Attending Physician. rao 09:38 Patient has correct armband on for positive identification. Placed in gown. Bed in low jl7 position. Call light in reach. Side rails up X 1. monitor technician on. Pulse ox on. NIBP on. 10:[address] via stretcher. em2 10:33 CT Head C Spine In Process Unspecified. EDMS 10:36 CT completed. Patient tolerated procedure well. Patient moved to radiology via jb2 stretcher. 10:49 Lumbar Spine (3 Views) XRAY In Process Unspecified. EDMS 11:06 No provider procedures requiring assistance completed. Patient did not have IV access jl7 during this emergency room visit. Administered Medications: No medications were administered Outcome: 11:01 Discharge ordered by . rao 11:29 Discharged to home ambulatory. jlGiorgio 11:29 Condition: stable 11:29 Discharge instructions given to patient, Instructed on discharge instructions, follow up and referral plans. medication usage, Demonstrated understanding of instructions, follow-up care, medications, Prescriptions given X 3. 11:29 Patient left the ED. jl7 Signatures: Dispatcher [employer] EDNM Berry Arzola MD MD cha Buechter, Jesse jb2 Boris Henry 2 Radha Carrillo, RN RN Nurys Jean RN RN jl7 Chela Oneill 5
--- NOTE | 2019-02-16 11:02 | EDPHYS ---
Physician Documentation [facility] Name: Samantha Decker Age: 58 yrs Sex: Female : 1960 Arrival Date: 02/16/2019 Time: 08:59 Bed 6 Private MD: None, None ED Physician Berry Arzola HPI: 02/16 10:07 This 58 yrs old Female presents to ER via Ambulatory with complaints of Fall rao Injury, Headache, Back Pain. 10:07 Details of fall: The patient fell from an upright position, while standing, while rao walking. Onset: The symptoms/episode began/occurred 30 day(s) ago. Associated injuries: The patient sustained injury to the head, neck injury, injury to the low back. Severity of symptoms: At their worst the symptoms were moderate, in the emergency department the symptoms are unchanged. The patient has not experienced similar symptoms in the past. Historical: - Allergies: 09:16 No Known Allergies; hb - Home Meds: 09:16 omeprazole 40 mg oral cpDR once daily [Active]; levothyroxine 137 mcg tab 2 tabs once hb daily [Active]; Celexa 40 mg oral tab once daily [Active]; temazepam 30 mg Oral cap 1 cap twice a day [Active]; - PMHx: 09:16 Anxiety; GERD; Hypothyroidism; hb - PSHx: 09:16 Thyroidectomy; Gastric Bypass; hb - Immunization history:: Adult Immunizations up to date. - Social history:: Smoking status: Patient/guardian denies using tobacco. - Ebola Screening: : No symptoms or risks identified at this time. - Family history:: not pertinent. ROS: 10:07 Constitutional: Negative for fever, chills, and weight loss, Eyes: Negative for injury, rao pain, redness, and discharge, ENT: Negative for injury, pain, and discharge, Neck: Negative for injury, pain, and swelling, Cardiovascular: Negative for chest pain, palpitations, and edema, Respiratory: Negative for shortness of breath, cough, wheezing, and pleuritic chest pain, Abdomen/GI: Negative for abdominal pain, nausea, vomiting, diarrhea, and constipation, : Negative for injury, bleeding, discharge, and swelling, MS/Extremity: Negative for injury and deformity, Skin: Negative for injury, rash, and discoloration, Psych: Negative for depression, anxiety, suicide ideation, homicidal ideation, and hallucinations, Allergy/Immunology: Negative for hives, rash, and allergies, Endocrine: Negative for neck swelling, polydipsia, polyuria, polyphagia, and marked weight changes, Hematologic/Lymphatic: Negative for swollen nodes, abnormal bleeding, and unusual bruising. 10:07 Back: Positive for decreased range of motion, pain at rest, of the thoracic area and lumbar area. 10:07 Neuro: Positive for headache. Exam: 10:07 Constitutional: This is a well developed, well nourished patient who is awake, alert, rao and in no acute distress. Eyes: Pupils equal round and reactive to light, extra-ocular motions intact. Lids and lashes normal. Conjunctiva and sclera are non-icteric and not injected. Cornea within normal limits. Periorbital areas with no swelling, redness, or edema. ENT: Nares patent. No nasal discharge, no septal abnormalities noted. Tympanic membranes are normal and external auditory canals are clear. Oropharynx with no redness, swelling, or masses, exudates, or evidence of obstruction, uvula midline. Mucous membranes moist. Chest/axilla: Normal chest wall appearance and motion. Nontender with no deformity. No lesions are appreciated. Cardiovascular: Regular rate and rhythm with a normal S1 and S2. No gallops, murmurs, or rubs. Normal PMI, no JVD. No pulse deficits. Respiratory: Lungs have equal breath sounds bilaterally, clear to auscultation and percussion. No rales, rhonchi or wheezes noted. No increased work of breathing, no retractions or nasal flaring. Abdomen/GI: Soft, non-tender, with normal bowel sounds. No distension or tympany. No guarding or rebound. No evidence of tenderness throughout. Back: No spinal tenderness. No costovertebral tenderness. Full range of motion. Female : Normal external genitalia. Skin: Warm, dry with normal turgor. Normal color with no rashes, no lesions, and no evidence of cellulitis. MS/ Extremity: Pulses equal, no cyanosis. Neurovascular intact. Full, normal range of motion. Neuro: Awake and alert, GCS 15, oriented to person, place, time, and situation. Cranial nerves II-XII grossly intact. Motor strength 5/5 in all extremities. Sensory grossly intact. Cerebellar exam normal. Normal gait. Psych: Awake, alert, with orientation to person, place and time. Behavior, mood, and affect are within normal limits. 10:07 Head/face: Noted is contusion, that is deep, of the forehead and left eye. 10:07 Back: pain, that is moderate, ROM is painful, normal spinal alignment noted, CVA tenderness, is absent, vertebral tenderness, is not appreciated, muscle spasm, is not present. Vital Signs: 09:16 BP 153 / 87; Pulse 77; Resp 16; Temp 98.3; Pulse Ox 99% on R/A; Weight 77.11 kg; Height hb 5 ft. 6 in. (167.64 cm); Pain 8/10; 10:31 BP 151 / 79; Pulse 67; Resp 16 S; Pulse Ox 100% on R/A; jl7 09:16 Body Mass Index 27.44 (77.11 kg, 167.64 cm) hb Visual Acuity: 09:36 Left Eye Visual acuity 20/70, ; Right Eye Visual acuity 20/25, ; Both Eyes Visual jl7 acuity 20/20; Without Lenses; MDM: 09:37 Patient medically screened. [facility] 10:09 Data reviewed: vital signs, nurses notes, lab test result(s), radiologic studies, CT [facility] scan, plain films. 02/16 11:08 Order name: Urine Dipstick--Ancillary (enter results) 02/16 10:07 Order name: CT Head C Spine; Complete Time: 10:56 [facility] 02/16 10:07 Order name: Lumbar Spine (3 Views) XRAY [facility] 02/16 10:07 Order name: Urine Dipstick-Ancillary (obtain specimen); Complete Time: 10:11 [facility] Administered Medications: No medications were administered Disposition: 02/16/19 11:01 Discharged to Home. Impression: Fall due to bumping against object, Superficial injury of head, Low back pain. - Condition is Stable. - Discharge Instructions: Back Pain, Adult, Head Injury, Adult, Musculoskeletal Pain, Back Pain, Adult, Gjtl-ja-Eosr, Head Injury, Adult, Mmsh-vh-Vaqr. - Prescriptions for Skelaxin 800 mg Oral Tablet - take 1 tablet by ORAL route every 6 hours As needed; 28 tablet. Tylenol- Codeine #3 300-30 mg Oral Tablet - take 2 tablet by ORAL route every 6 hours As needed; 30 tablet. Cyclobenzaprine 5 mg Oral Tablet - take 1 tablet by ORAL route 3 times per day As needed; 15 tablet. - Medication Reconciliation Form, Thank You Letter, Antibiotic Education, Prescription Opioid Use, Work release form form. - Follow up: Private Physician; When: 2 - 3 days; Reason: Recheck today's complaints, Continuance of care, Re-evaluation by your physician. - Problem is new. - Symptoms have improved. Signatures: Dispatcher [employer] EDIN Berry Arzola MD MD cha Baxter, Heather, RN RN Nurys Bray RN RN jl7 Corrections: (The following items were deleted from the chart) 11:29 11:01 02/16/2019 11:01 Discharged to Home. Impression: Fall due to bumping against jl7 object; Superficial injury of head; Low back pain. Condition is Stable. Discharge Instructions: Back Pain, Adult, Head Injury, Adult, Musculoskeletal Pain, Back Pain, Adult, Yopb-gg-Iaxn, Head Injury, Adult, Wayw-ah-Scal. Prescriptions for Skelaxin 800 mg Oral Tablet - take 1 tablet by ORAL route every 6 hours As needed; 28 tablet, Tylenol-Codeine #3 300-30 mg Oral Tablet - take 2 tablet by ORAL route every 6 hours As needed; 30 tablet, Cyclobenzaprine 5 mg Oral Tablet - take 1 tablet by ORAL route 3 times per day As needed; 15 tablet. and Forms are Medication Reconciliation Form, Thank You Letter, Antibiotic Education, Prescription Opioid Use. Follow up: Private Physician; When: 2 - 3 days; Reason: Recheck today's complaints, Continuance of care, Re-evaluation by your physician. Problem is new. Symptoms have improved. rao
--- NOTE | 2019-02-16 11:20 | RAD REPORT ---
EXAM DESCRIPTION: RAD - Lumbar Spine 3 Views - 02/16/2019 10:53 am CLINICAL HISTORY: Back pain FINDINGS: The alignment of the lumbar spine is satisfactory. No fracture or dislocation is seen. The spondylosis Moderate disc space narrowing L5-S1 with subchondral sclerosis. The small osteophytes are present Mild moderate disc space narrowing L4-5
[2019-02-16 12:01] LABS: Urine Blood TRACE (NEG); Urine Glucose NEGATIVE (NEG); Urine Protein NEGATIVE (NEG); Urine Specific Gravity 1.015 (1.005-1.030); Urine pH 6.5 (5.0-7.0)
[2019-02-16 12:19] VITALS: TEMP 97.9
[2019-02-16 12:21] VITALS: BP 111/69; O2SAT 97
== END 2019-02-16 11:29 | disposition home or self-care (01) ==
LOC: ER 08:57
DX: S00.90XA Unspecified superficial injury of unspecified part of head, initial encounter (principal); M54.5 Low back pain; K21.9 Gastro-esophageal reflux disease without esophagitis; E03.9 Hypothyroidism, unspecified; F41.8 Other specified anxiety disorders; W18.00XA Striking against unspecified object with subsequent fall, initial encounter; Y93.9 Activity, unspecified; Y92.9 Unspecified place or not applicable
CPT/HCPCS: 70450; 72100; 72125; 81003; 99284

== ENCOUNTER 2020-01-12 07:38 | Emergency (ER) | payer OTHER, SELFPAY ==
[2020-01-12] MEDS ORDERED: KETOROLAC 30 MG/ML INJ ONE (08:30)
[2020-01-12 08:38] LABS: Urine Blood 2+ (NEG); Urine Glucose NEGATIVE (NEG); Urine Protein NEGATIVE (NEG); Urine pH 5.5 (5.0-7.0)
[2020-01-12 08:39] LABS: Urine Bacteria <20 /HPF (<20); Urine Culture Reflex Order REFLEXED
[2020-01-12 08:40] LABS: Urine Mucus 1+ /HPF (NONE SEEN); Urine Urothelial Cells <5 /HPF (NONE SEEN)
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
[2020-01-12] MEDS ORDERED: NITROFURAN MACRO 100 MG CAP PO ONE (09:01)
[2020-01-12] MEDS ORDERED: HYDROCODONE/APAP 10/325 TAB ONE (09:01)
[2020-01-12 09:15] VITALS: BP 140/71; O2SAT 100
[2020-01-12 09:16] VITALS: TEMP 98.2
== END 2020-01-12 09:10 | disposition home or self-care (01) ==
LOC: ER 07:38
DX: N39.0 Urinary tract infection, site not specified (principal); M54.5 Low back pain; E03.9 Hypothyroidism, unspecified; F34.1 Dysthymic disorder; K21.9 Gastro-esophageal reflux disease without esophagitis
CPT/HCPCS: 81003; 81015; 87086; 87088; 96372; 99283

== ENCOUNTER 2020-08-16 09:31 | Emergency (ER) | payer OTHER ==
--- NOTE | 2020-08-16 10:52 | EDPHYS ---
Physician Documentation [facility] Name: Samantha Decker Age: 60 yrs Sex: Female : 1960 Arrival Date: 08/16/2020 Time: 09:35 Bed 5 Private MD: ED Physician Oscar Hearn HPI: 08/16 10:47 This 60 yrs old Female presents to ER via Ambulatory with complaints of Back jmm Pain. 10:47 The patient presents with pain that is acute. jmm 10:47 The symptoms are located in the left low back. Onset: The symptoms/episode jmm began/occurred acutely. The pain does not radiate. Associated signs and symptoms: Pertinent negatives: abdominal pain, chest pain, dysuria, fever, headache, hematuria, incontinence, nausea, urinary retention. Modifying factors: The patient symptoms are alleviated by nothing, the patient symptoms are aggravated by any movement. Pain occurred after moving boxes. Historical: - Allergies: 09:42 No Known Allergies; sv - PMHx: 09:42 Anxiety; Depression; GERD; Hypothyroidism; Kidney stones; sv - Immunization history:: Adult Immunizations up to date. - Social history:: Smoking status: Patient denies any tobacco usage or history of. ROS: 10:47 Constitutional: Negative for fever, chills, and weight loss, Cardiovascular: Negative jmm for chest pain, palpitations, and edema, Respiratory: Negative for shortness of breath, cough, wheezing, and pleuritic chest pain, Abdomen/GI: Negative for abdominal pain, nausea, vomiting, diarrhea, and constipation. 10:47 Back: Positive for pain with movement. 10:47 All other systems are negative. Exam: 10:47 Constitutional: This is a well developed, well nourished patient who is awake, alert, jmm and in no acute distress. Head/Face: atraumatic. Eyes: EOMI, no conjunctival erythema appreciated ENT: Moist Mucus Membranes Neck: Trachea midline, Supple Chest/axilla: Normal chest wall appearance and motion. Cardiovascular: Regular rate and rhythm. No edema appreciated Respiratory: Normal respirations, no respiratory distress appreciated Abdomen/GI: Non distended, soft 10:47 Skin: General appearance color normal MS/ Extremity: Moves all extremities, no obvious deformities appreciated, no edema noted to the lower extremities Neuro: Awake and alert, normal gait Psych: Behavior is normal, Mood is normal, Patient is cooperative and pleasant 10:47 Back: muscle spasm, is appreciated in the left low back. Vital Signs: 09:42 BP 153 / 80; Pulse 76; Resp 16; Temp 99.0(TE); Pulse Ox 99% on R/A; Weight 87.54 kg; sv Height 5 ft. 7 in. (170.18 cm); Pain 8/10; 09:42 Body Mass Index 30.23 (87.54 kg, 170.18 cm) sv MDM: 10:46 Patient medically screened. m 10:49 Data reviewed: vital signs, nurses notes. Counseling: I had a detailed discussion with jeffrey the patient and/or guardian regarding: the historical points, exam findings, and any diagnostic results supporting the discharge/admit diagnosis, the need for outpatient follow up, to return to the emergency department if symptoms worsen or persist or if there are any questions or concerns that arise at home. ED course: PE consistent with muscle spasm, muscular strain. I do not suspect cauda equina or infectious cause. Patient advised to follow up with pcp or otherwise given strict return precautions. patient understood and agrees with the plan of care. . Administered Medications: 10:55 Drug: Ketorolac 30 mg Route: IM; Site: left gluteus; ss 11:13 Follow up: Response: No adverse reaction ss Disposition: 17:51 Co-signature as Attending Physician, Oscar Hearn MD available for consultation at ps1 all times. Signature for administrative purposes. Did not see or evaluate the patient unless otherwise noted. . Disposition: 08/16/20 10:51 Discharged to Home. Impression: Strain of muscle, fascia and tendon of lower back. - Condition is Stable. - Discharge Instructions: Back Pain, Adult. - Prescriptions for Zanaflex 4 mg Oral Tablet - take 1 tablet by ORAL route every 8 hours As needed; 20 tablet. Medrol (Ray) 4 mg Oral Tablets, Dose Pack - take 1 tablet by ORAL route as directed - follow package instructions; 1 packet. - Medication Reconciliation Form, Thank You Letter, Antibiotic Education, Prescription Opioid Use, Work release form form. - Follow up: Private Physician; When: 2 - 3 days; Reason: Recheck today's complaints, Continuance of care, Re-evaluation by your physician. Signatures: Mirian Messina RN Ki Ramirez PA PA jmm Smirch, Shelby, RN RN ss Oscar Hearn MD MD ps1 Corrections: (The following items were deleted from the chart) 11:13 10:51 08/16/2020 10:51 Discharged to Home. Impression: Strain of muscle, fascia and ss tendon of lower back. Condition is Stable. Forms are Medication Reconciliation Form, Thank You Letter, Antibiotic Education, Prescription Opioid Use. Follow up: Private Physician; When: 2 - 3 days; Reason: Recheck today's complaints, Continuance of care, Re-evaluation by your physician. jeffrey
--- NOTE | 2020-08-16 10:52 | ER ---
Nurse's Notes [facility] Name: Samantha Decker Age: 60 yrs Sex: Female : 1960 Arrival Date: 08/16/2020 Time: 09:35 Bed 5 Private MD: Diagnosis: Strain of muscle, fascia and tendon of lower back Presentation: 08/16 09:41 Chief complaint: Patient states: "I've been moving and I hurt the lower part of my sv back.". Coronavirus screen: Client denies travel out of the [place] in the last 14 days. At this time, the client does not indicate any symptoms associated with coronavirus-19. Ebola Screen: No symptoms or risks identified at this time. Risk Assessment: Do you want to hurt yourself or someone else? Patient reports no desire to harm self or others. Onset of symptoms was August 14, 2020. 09:41 Method Of Arrival: Ambulatory sv 09:41 Acuity: KARRIE 4 sv 09:42 Initial Sepsis Screen: Does the patient meet any 2 criteria? No. Patient's initial sv sepsis screen is negative. Does the patient have a suspected source of infection? No. Patient's initial sepsis screen is negative. Historical: - Allergies: 09:42 No Known Allergies; sv - PMHx: 09:42 Anxiety; Depression; GERD; Hypothyroidism; Kidney stones; sv - Immunization history:: Adult Immunizations up to date. - Social history:: Smoking status: Patient denies any tobacco usage or history of. Screenin:46 Abuse screen: Denies threats or abuse. Denies injuries from another. Nutritional ss screening: No deficits noted. Tuberculosis screening: Never had TB. Fall Risk None identified. Assessment: 10:46 General: Appears uncomfortable, Behavior is calm, cooperative. Pain: Complains of pain ss in lumbar area and left low back Pain currently is 8 out of 10 on a pain scale. Quality of pain is described as aching, pinching, Pain began 1-2 days ago. Is worse today Is continuous. Neuro: Level of Consciousness is awake, alert, obeys commands. Cardiovascular: Capillary refill < 3 seconds is brisk in bilateral fingers Patient's skin is warm and dry. Respiratory: Airway is patent Respiratory effort is even, unlabored, Respiratory pattern is regular, symmetrical. GI: No signs and/or symptoms were reported involving the gastrointestinal system. Patient currently denies diarrhea, nausea, vomiting. EENT: Nares are clear Oral mucosa is moist. Derm: Skin is intact, is healthy with good turgor, Skin is dry, Skin is pink, warm \\T\\ dry. normal. Vital Signs: 09:42 BP 153 / 80; Pulse 76; Resp 16; Temp 99.0(TE); Pulse Ox 99% on R/A; Weight 87.54 kg; sv Height 5 ft. 7 in. (170.18 cm); Pain 8/10; 09:42 Body Mass Index 30.23 (87.54 kg, 170.18 cm) sv ED Course: 09:35 Patient arrived in ED. mr 09:41 Triage completed. sv 09:42 Arm band placed on. sv 10:39 Ki Lepe PA is PHCP. [facility] 10:39 Oscar Hearn MD is Attending Physician. m 10:46 Patient has correct armband on for positive identification. Bed in low position. Call ss light in reach. 10:55 Marlene Dickson, FAN is Primary Nurse. ss 11:12 No provider procedures requiring assistance completed. Patient did not have IV access ss during this emergency room visit. Administered Medications: 10:55 Drug: Ketorolac 30 mg Route: IM; Site: left gluteus; ss 11:13 Follow up: Response: No adverse reaction ss Outcome: 10:51 Discharge ordered by . [facility] 11:12 Discharged to home ambulatory. ss 11:12 Condition: good 11:12 Discharge instructions given to patient, Instructed on discharge instructions, follow up and referral plans. medication usage, Demonstrated understanding of instructions, follow-up care, medications, Prescriptions given X 2. 11:13 Patient left the ED. ss Signatures: Mirian Messina RN RN Ki Lepe PA PA jmm RiveraNany mr Marlene Dickson RN RN ss Corrections: (The following items were deleted from the chart) 09:44 09:42 Pulse 76bpm; Resp 16bpm; Pulse Ox 99%; Temp 99.0F; 87.54 kg; Height 5 ft. 7 in.; sv BMI: 30.2; Pain 8/10; sv
[2020-08-16] MEDS ORDERED: KETOROLAC 30 MG/ML INJ ONE (11:10)
[2020-08-16 11:17] VITALS: BP 153/80; TEMP 99; O2SAT 99
[2020-08-16] MEDS ORDERED: POTASSIUM CL SA 10 MEQ TAB PO ONE (11:44)
== END 2020-08-16 11:13 | disposition home or self-care (01) ==
LOC: ER 09:31
DX: S39.012A Strain of muscle, fascia and tendon of lower back, initial encounter (principal); F41.9 Anxiety disorder, unspecified; F32.9 Major depressive disorder, single episode, unspecified; K21.9 Gastro-esophageal reflux disease without esophagitis; E03.9 Hypothyroidism, unspecified; X58.XXXA Exposure to other specified factors, initial encounter
CPT/HCPCS: 96372; 99283

== ENCOUNTER 2021-05-20 10:34 | Emergency (ER) | payer OTHER, SELFPAY ==
[2021-05-20 11:55] LABS: SARS-COV-2 RT PCR NEGATIVE (NEGATIVE)
--- NOTE | 2021-05-20 12:06 | EDPHYS ---
Physician Documentation [facility] Name: Samantha Decker Age: 60 yrs Sex: Female : 1960 Arrival Date: 05/20/2021 Time: 10:36 Bed 12 Private MD: ED Physician Eleuterio Vargas HPI: 05/20 12:22 This 60 yrs old Female presents to ER via Ambulatory with complaints of Sore Throat, kb Cough. 12:22 The patient or guardian reports cough, that is intermittent, described as mild, flu kb symptoms, low-grade fever, myalgias. The patient has not recently seen a physician. 12:22 Onset: The symptoms/episode began/occurred 2 day(s) ago. Severity of symptoms: At their kb worst the symptoms were moderate, in the emergency department the symptoms are unchanged. Modifying factors: The symptoms are alleviated by nothing, the symptoms are aggravated by nothing. Associated signs and symptoms: Pertinent positives: fever, rhinorrhea, sore throat, Pertinent negatives: chest pain, diarrhea, ear ache, nausea, vomiting. The patient has not experienced similar symptoms in the past. Historical: - Allergies: 10:52 No Known Allergies; ss - PMHx: 10:52 Anxiety; Depression; GERD; Hypothyroidism; Kidney stones; ss - Immunization history:: Adult Immunizations not immunized. - Social history:: Smoking status: Patient denies any tobacco usage or history of. ROS: 12:18 Abdomen/GI: Negative for abdominal pain, nausea, vomiting, diarrhea, and constipation. kb 12:18 Constitutional: Positive for body aches, chills, fatigue, fever, malaise. 12:18 ENT: Positive for sinus congestion, sore throat. 12:18 Respiratory: Positive for cough, Negative for dyspnea on exertion, hemoptysis, orthopnea, pleurisy, shortness of breath, sputum production, wheezing. 12:18 All other systems are negative. Exam: 12:18 Constitutional: This is a well developed, well nourished patient who is awake, alert, kb and in no acute distress. Head/Face: Normocephalic, atraumatic. ENT: Moist Mucous membranes Cardiovascular: Regular rate and rhythm with a normal S1 and S2. No gallops, murmurs, or rubs. No pulse deficits. Respiratory: Respirations even and unlabored. No increased work of breathing. Talking in full sentences Skin: Warm, dry with normal turgor. Normal color. MS/ Extremity: Pulses equal, no cyanosis. Neurovascular intact. Full, normal range of motion. Neuro: Awake and alert, GCS 15, oriented to person, place, time, and situation. Moves all extremities. Normal gait. Psych: Awake, alert, with orientation to person, place and time. Behavior, mood, and affect are within normal limits. Vital Signs: 10:51 BP 120 / 83; Pulse 98; Resp 16; Temp 99.4(TE); Pulse Ox 100% on R/A; Weight 86.18 kg; ss Height 5 ft. 7 in. (170.18 cm); Pain 4/10; 10:51 Body Mass Index 29.76 (86.18 kg, 170.18 cm) ss MDM: 10:54 Patient medically screened. kb 12:13 Data reviewed: vital signs, nurses notes. Data interpreted: Pulse oximetry: on room air kb is 100 %. Interpretation: normal. Counseling: I had a detailed discussion with the patient and/or guardian regarding: the historical points, exam findings, and any diagnostic results supporting the discharge/admit diagnosis, lab results, the need for outpatient follow up, a family practitioner, to return to the emergency department if symptoms worsen or persist or if there are any questions or concerns that arise at home. 05/20 10:56 Order name: Strep; Complete Time: 12:05 ss 05/20 10:56 Order name: COVID-19/FLU A+B (Document "Date of Onset" if Symptomatic); Complete Time: 12:05 05/20 11:40 Order name: Throat Culture EDMS Administered Medications: No medications were administered Disposition: 13:17 Co-signature as Attending Physician, Eleuterio Vargas MD. rn Disposition Summary: 05/20/21 12:05 Discharge Ordered Location: Home kb Condition: Stable kb Diagnosis - Acute upper respiratory infection, unspecified kb Followup: kb - With: Emergency Department - When: As needed - Reason: Worsening of condition Followup: kb - With: Private Physician - When: 2 - 3 days - Reason: Recheck today's complaints, Continuance of care, Re-evaluation by your physician Discharge Instructions: - Discharge Summary Sheet kb - Upper Respiratory Infection, Adult, [id number] kb - Viral Respiratory Infection, Hopv-Uk-Jide kb Forms: - Medication Reconciliation Form kb - Thank You Letter kb - Work release form kb - Antibiotic Education kb - Prescription Opioid Use kb Signatures: Dispatcher [employer] Jolie Wong, Eleuterio Phipps MD MD rn Marlene Dickson RN RN ss
--- NOTE | 2021-05-20 12:06 | ER ---
Nurse's Notes [facility] Name: Samantha Decker Age: 60 yrs Sex: Female : 1960 Arrival Date: 05/20/2021 Time: 10:36 Bed 12 Private MD: Diagnosis: Acute upper respiratory infection, unspecified Presentation: 05/20 10:51 Chief complaint: Patient states: cough, sore throat and headache that began 2 days ago. ss Coronavirus screen: Client presents with at least one sign or symptom that may indicate coronavirus-19. Standard/surgical mask placed on the client. Ebola Screen: Patient denies exposure to infectious person. Patient denies travel to an Ebola-affected area in the 21 days before illness onset. Initial Sepsis Screen: Does the patient meet any 2 criteria? No. Patient's initial sepsis screen is negative. Does the patient have a suspected source of infection? No. Patient's initial sepsis screen is negative. Risk Assessment: Do you want to hurt yourself or someone else? Patient reports no desire to harm self or others. Onset of symptoms was May 18, 2021. 10:51 Method Of Arrival: Ambulatory ss 10:51 Acuity: KARRIE 4 ss Historical: - Allergies: 10:52 No Known Allergies; ss - PMHx: 10:52 Anxiety; Depression; GERD; Hypothyroidism; Kidney stones; ss - Immunization history:: Adult Immunizations not immunized. - Social history:: Smoking status: Patient denies any tobacco usage or history of. Screenin:11 Abuse screen: Denies threats or abuse. Denies injuries from another. Nutritional ss screening: No deficits noted. Tuberculosis screening: Never had TB. Fall Risk None identified. Assessment: 11:00 General: Appears in no apparent distress. comfortable, Behavior is calm, cooperative. ss Neuro: Level of Consciousness is awake, alert, obeys commands, Oriented to person, place, time, situation. Cardiovascular: Capillary refill < 3 seconds is brisk in bilateral fingers. Respiratory: Airway is patent Respiratory effort is even, unlabored, Respiratory pattern is regular, symmetrical. Respiratory: Reports cough that is. EENT: Oral mucosa is moist. Throat is clear. Derm: Skin is intact, is healthy with good turgor, Skin is dry, Skin is pink, warm \T\ dry. normal. Musculoskeletal: Range of motion: Swelling absent. 12:16 Reassessment: Patient and/or family updated on plan of care and expected duration. Pain ss level reassessed. Patient is alert, oriented x 3, equal unlabored respirations, skin warm/dry/pink. Vital Signs: 10:51 BP 120 / 83; Pulse 98; Resp 16; Temp 99.4(TE); Pulse Ox 100% on R/A; Weight 86.18 kg; ss Height 5 ft. 7 in. (170.18 cm); Pain 4/10; 10:51 Body Mass Index 29.76 (86.18 kg, 170.18 cm) ss ED Course: 10:36 Patient arrived in ED. ds1 10:52 Triage completed. ss 10:52 Arm band placed on right wrist. ss 10:54 Jolie Palma FNP-C is [facility]. kb 10:54 Eleuterio Vargas MD is Attending Physician. kb 10:55 Marlene Dickson, FAN is Primary Nurse. ss 11:11 Patient has correct armband on for positive identification. Bed in low position. Call ss light in reach. 11:11 No provider procedures requiring assistance completed. ss 12:16 Patient did not have IV access during this emergency room visit. ss Administered Medications: No medications were administered Outcome: 12:05 Discharge ordered by MD. kb 12:16 Discharged to home ambulatory. ss 12:16 Condition: good 12:16 Discharge instructions given to patient, Instructed on discharge instructions, follow up and referral plans. Demonstrated understanding of instructions, follow-up care, medications. 12:18 Patient left the ED. ss Signatures: Jolie Palma FNP-C FNP-Ckb Sanford, Demi ds1 Marlene Dickson, FAN RN ss
[2021-05-20 12:23] VITALS: BP 120/83; TEMP 99.4; O2SAT 100
== END 2021-05-20 12:18 | disposition home or self-care (01) ==
LOC: ER 10:34
DX: J06.9 Acute upper respiratory infection, unspecified (principal); Z20.822 Contact with and (suspected) exposure to COVID-19
CPT/HCPCS: 0240U; 87070; 87081; 99281

== ENCOUNTER 2022-02-27 10:32 | Emergency (ER) | payer SELFPAY ==
--- OUTSIDE RECORDS SUMMARY | 2022-02-27 10:49 | XMS REPORT | Continuity of Care Document ---
:1960 Author Organization [facility] t Address [address] [place] [address] Care Team Providers Name Role Phone Unavailable Unavailable Unavailable Problems This patient has no known problems. Allergies, Adverse Reactions, Alerts This patient has no known allergies or adverse reactions. Medications This patient has no known medications. Procedures This patient has no known procedures. Results Test Description Test Time Test Comments Results Result Comments Source LIPID PANEL 2021-07-28 06:25:41 Test Item Value Reference Range Interpretation Comme nts CHOLESTEROL (test code = 2210) 229 MG/DL <200 H TRIGLYCERIDES (test code = 2232) 122 MG/DL <150 HDL CHOLESTEROL (test code = 73 MG/DL >39 2219) CALC LDL CHOL (test code = 2237) 133 MG/DL <100 H NOTE: CALCULATED LDL IS BASED ON KIARA-RODRIGUEZ METHOD WHICHINCLUDES A DJUSTABLE TRIGLYCERIDE:VL DL CHOLESTEROL RATIO.THIS FACT OR VARIES BY MEASURED TRIGLY CERIDE AND NON-HDLCHOLESTE ROL CONCENTRATIONS WITH INCREASED CALCULATED LDL SEENIN HIGHER T RIGLYCERIDE OR LOWER NON-HDL S PECIMENS. FOR MOREINFORMATION , SEE CLIENT ANNOUNCEMENT AT [email or web address] RATIO LDL/HDL (test code = 1.82 RATIO <3.22 8) COMPREHENSIVE METABOLIC [id number] 06:25:41 Test Item Value Reference Range Interpretation Comments GLUCOSE (test code = 96 MG/DL 70-99 2216) BUN (test code = 11 MG/DL 8-2207) CREATININE (test 0.87 MG/DL 0.60-1.30 code = 2214) eGFR (2020 CKD-EPI) 75 >60 (test code = 05545) ML/MIN/1.73 CALC BUN/CREAT (test 13 RATIO - code = 2235) SODIUM (test code = 142 MEQ/L 911-488 6530) POTASSIUM (test code 4.6 MEQ/L 3.5-5.4 = 2227) CHLORIDE (test code 104 MEQ/L 95-107 = 221) CARBON DIOXIDE (test 24 MEQ/L 19-31 code = 2206) CALCIUM (test code = 9.4 MG/DL 8.5-10.5 2208) PROTEIN, TOTAL (test 7.6 G/DL 6.1-8.3 code = 222) ALBUMIN (test code = 4.5 G/DL 3.5-5.2 2200) CALC GLOBULIN (test 3.1 G/DL 1.9-3.7 code = 2240) CALC A/G RATIO (test 1.5 RATIO 1.0-2.6 code = 2234) BILIRUBIN, TOTAL 0.3 MG/DL See_Comment [Automated message] (test code = 2207) The [employer] which generated this result transmitted ref erence range: <=1.2. T he reference range was not used to int erpret this result as normal/abnormal . ALKALINE PHOSPHATASE 98 U/L 40-140 (test code = 2204) AST (test code = 18 U/L 9-40 2217) ALT (test code = 10 U/L 5-40 UNLESS OTH ERWISE 2218) INDICATED, ALL TESTING PERFORM ED [facility], [facility]. [address] [place] [address] [facility] DIRECTOR: CHELI XIONG M.D. CLIA NUMBER [id number] CAP ACCREDITATION N O. [id number] HEMOGLOBIN [id number] 03:23:08 Test Item Value Reference Range Interpretation Comments HEMOGLOBIN A1c (test code = 83475) 5.3 % 4.2-5.6
[2022-02-27] MEDS ORDERED: MORPHINE 4 MG/ML SYR ONE ×2 (11:18→11:49)
[2022-02-27] MEDS ORDERED: LIDOCAINE 1% MPF 30 ML VIAL ONE (11:19)
--- NOTE | 2022-02-27 12:34 | RAD REPORT ---
EXAM DESCRIPTION: RAD - Wrist Left 3 View - 02/27/2022 11:20 am CLINICAL HISTORY: PAIN Pain COMPARISON: No comparisons FINDINGS: Mild diffuse osteopenia is seen. Mildly impacted fracture of the distal radius is present . Ulnar styloid avulsion is also noted. Moderate soft tissue swelling.
--- NOTE | 2022-02-27 12:53 | EDPHYS ---
Physician Documentation [facility] Name: Samantha Decker Age: 61 yrs Sex: Female : 1960 Arrival Date: 02/27/2022 Time: 10:39 Bed 16 Private MD: ED Physician Eleuterio Vargas HPI: 02/27 11:02 This 61 yrs old Female presents to ER via Ambulatory with complaints of Fall Injury, rn Wrist Injury. 11:02 Details of fall: The patient fell from an upright position, while standing. Onset: The rn symptoms/episode began/occurred last night. Associated injuries: The patient sustained left wrist. Severity of symptoms: At their worst the symptoms were moderate, in the emergency department the symptoms are unchanged. The patient has not experienced similar symptoms in the past. The patient has not recently seen a physician. Fall from standing last night, fell with outstretched hand. + isolated pain and injury to left wrist. Right handed. . Historical: - Allergies: 10:43 No Known Allergies; bm7 - Home Meds: 10:43 Celexa 40 mg Oral tab once daily [Active]; levothyroxine 125 mcg tab twice a day bm7 [Active]; Minipress 2 mg Oral cap 1 cap 2 times per day [Active]; omeprazole 40 mg Oral cpDR once daily [Active]; temazepam 30 mg Oral cap 1 cap twice a day [Active]; trazodone 50 mg Oral tab [Active]; - Immunization history:: Adult Immunizations up to date, Client reports having NOT received the Covid vaccine. - Social history:: Smoking status: Patient denies any tobacco usage or history of. - Family history:: not pertinent. - Hospitalizations: : No recent hospitalization is reported. ROS: 11:02 Constitutional: Negative for fever, chills, and weight loss, Neck: Negative for injury, rn pain, and swelling, Back: Negative for injury and pain, MS/Extremity: + left wrist pain and swelling Skin: Negative for injury, rash, and discoloration, Neuro: Negative for headache, weakness, numbness, tingling, and seizure. Exam: 11:02 Constitutional: This is a well developed, well nourished patient who is awake, alert, rn and in no acute distress. Holding left wrist with right hand, left arm in passive flexion Head/Face: Normocephalic, atraumatic. MS/ Extremity: Pulses equal, no cyanosis. + tenderness and swelling to left wrist, no open wounds. No tenderenss/swelling to left hand or in left arm proximal to wrist. Neuro: Awake and alert, GCS 15 Vital Signs: 10:41 BP 138 / 81; Pulse 71; Resp 16; Temp 98.2(TE); Pulse Ox 98% on R/A; Weight 86.18 kg bm7 (R); Height 5 ft. 7 in. (170.18 cm); Pain 10/10; 11:15 BP 152 / 78; Pulse 82; Pulse Ox 99% ; ko1 12:15 BP 148 / 85; Pulse 76; ko1 12:25 BP 145 / 74; Pulse 72; Pulse Ox 99% ; ko1 10:41 Body Mass Index 29.76 (86.18 kg, 170.18 cm) bm7 Procedures: 11:39 Nerve block: Hematoma block of left wrist. Medication: Lidocaine 1% without epinephrine rn Amount: 5 mls were injected, Effect: the patient's symptoms are improved, Set up for procedure. Performed by Eleuterio Vargas MD Patient tolerated well. MDM: 10:40 Patient medically screened. rn 12:51 Differential diagnosis: contusion, fracture. Data reviewed: vital signs, nurses notes, rn radiologic studies, plain films, and as a result, I will discharge patient. Counseling: I had a detailed discussion with the patient and/or guardian regarding: the historical points, exam findings, and any diagnostic results supporting the discharge/admit diagnosis, radiology results, the need for outpatient follow up, to return to the emergency department if symptoms worsen or persist or if there are any questions or concerns that arise at home. Response to treatment: the patient's symptoms have mildly improved after treatment, and as a result, I will discharge patient. Special discussion: I discussed with the patient/guardian in detail that at this point there is no indication for admission to the hospital. It is understood, however, that if the symptoms persist or worsen the patient needs to return immediately for re-evaluation. Based on the history and exam findings, there is no indication for further emergent testing or inpatient evaluation. I discussed with the patient/guardian the need to see the orthopedic surgeon for further evaluation of the symptoms. 02/27 10:47 Order name: XRAY Wrist LEFT 3 view; Complete Time: 13:27 rn 02/27 12:25 Order name: XRAY Wrist LEFT 2 view; Complete Time: 13:27 rn 02/27 11:15 Order name: Misc. Order: finger trap setup, left arm, to gravity; Complete Time: 11:36 rn Administered Medications: 11:27 Drug: morphine 4 mg Route: IM; Site: right deltoid; ko1 11:36 Drug: Lidocaine (1 %) 1 vials Volume: 5 ml; Route: Infiltration; ko1 12:08 Drug: morphine 4 mg Route: IM; Site: right deltoid; ko1 Disposition Summary: 02/27/22 12:52 Discharge Ordered Location: Home rn Problem: new rn Symptoms: have improved rn Condition: Stable rn Diagnosis - Displaced transverse fracture of shaft of left radius rn - Displaced fracture of left ulna styloid process rn Followup: rn - With: Tarik Gutierres MD - When: 5 - 6 days - Reason: Recheck today's complaints, Re-evaluation by your physician Discharge Instructions: - Discharge Summary Sheet rn - Cast or Splint Care, Adult rn - Wrist Fracture Treated With Immobilization rn Forms: - Medication Reconciliation Form rn - Thank You Letter rn - Antibiotic 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
--- NOTE | 2022-02-27 12:53 | ER ---
Nurse's Notes [facility] Name: Samantha Decker Age: 61 yrs Sex: Female : 1960 Arrival Date: 02/27/2022 Time: 10:39 Bed 16 Private MD: Diagnosis: Displaced transverse fracture of shaft of left radius;Displaced fracture of left ulna styloid process Presentation: 02/27 10:41 Chief complaint: Patient states: I fell last night and landed on my arm and I think I bm7 did something to my wrist. Coronavirus screen: At this time, the client does not indicate any symptoms associated with coronavirus-19. Ebola Screen: No symptoms or risks identified at this time. Initial Sepsis Screen: Does the patient meet any 2 criteria? No. Patient's initial sepsis screen is negative. Does the patient have a suspected source of infection? No. Patient's initial sepsis screen is negative. Risk Assessment: Do you want to hurt yourself or someone else? Patient reports no desire to harm self or others. Onset of symptoms was February 26, 2022. Care prior to arrival: Medication(s) given: Motrin, \T\ 0700. 10:41 Method Of Arrival: Ambulatory bm7 10:41 Acuity: KRARIE 3 bm7 Triage Assessment: 10:43 General: Appears in no apparent distress. uncomfortable, Behavior is calm, cooperative, bm7 appropriate for age. Pain: Complains of pain in left arm. EENT: No deficits noted. No signs and/or symptoms were reported regarding the EENT system. Neuro: No deficits noted. Cardiovascular: No deficits noted. Respiratory: No deficits noted. GI: No deficits noted. No signs and/or symptoms were reported involving the gastrointestinal system. : No deficits noted. No signs and/or symptoms were reported regarding the genitourinary system. Derm: No deficits noted. No signs and/or symptoms reported regarding the dermatologic system. Musculoskeletal: Reports pain in left arm. Historical: - Allergies: 10:43 No Known Allergies; bm7 - Home Meds: 10:43 Celexa 40 mg Oral tab once daily [Active]; levothyroxine 125 mcg tab twice a day bm7 [Active]; Minipress 2 mg Oral cap 1 cap 2 times per day [Active]; omeprazole 40 mg Oral cpDR once daily [Active]; temazepam 30 mg Oral cap 1 cap twice a day [Active]; trazodone 50 mg Oral tab [Active]; - Immunization history:: Adult Immunizations up to date, Client reports having NOT received the Covid vaccine. - Social history:: Smoking status: Patient denies any tobacco usage or history of. - Family history:: not pertinent. - Hospitalizations: : No recent hospitalization is reported. Screenin:50 Abuse screen: Denies threats or abuse. Denies injuries from another. Nutritional ko1 screening: No deficits noted. Tuberculosis screening: No symptoms or risk factors identified. Fall Risk None identified. Assessment: 10:50 General: Appears in no apparent distress. uncomfortable, Behavior is calm, cooperative, ko1 appropriate for age. Pain: Complains of pain in dorsal aspect of left forearm and left wrist Pain currently is 10 out of 10 on a pain scale. Quality of pain is described as sharp, shooting, stabbing. Neuro: No deficits noted. Cardiovascular: No deficits noted. Respiratory: No deficits noted. GI: No deficits noted. : No deficits noted. EENT: No deficits noted. Derm: No deficits noted. Musculoskeletal: Bony deformity noted of dorsal aspect of left forearm and left wrist Reports. Injury Description: Deformity. Vital Signs: 10:41 BP 138 / 81; Pulse 71; Resp 16; Temp 98.2(TE); Pulse Ox 98% on R/A; Weight 86.18 kg bm7 (R); Height 5 ft. 7 in. (170.18 cm); Pain 10/10; 11:15 BP 152 / 78; Pulse 82; Pulse Ox 99% ; ko1 12:15 BP 148 / 85; Pulse 76; ko1 12:25 BP 145 / 74; Pulse 72; Pulse Ox 99% ; ko1 10:41 Body Mass Index 29.76 (86.18 kg, 170.18 cm) bm7 ED Course: 10:39 Patient arrived in ED. mr 10:40 Eleuterio Vargas MD is Attending Physician. rn 10:43 Triage completed. bm7 10:43 Arm band placed on right wrist. bm7 10:49 Araceli Conrad, FAN is Primary Nurse. ko1 10:50 Patient has correct armband on for positive identification. Bed in low position. Call ko1 light in reach. Side rails up X 1. Pulse ox on. NIBP on. 11:23 XRAY Wrist LEFT 3 view In Process Unspecified. EDMS 12:31 Orthoglass splint: Sugar tong splint applied on left arm. capillary refill <3 seconds, [address] Varg[address]. Sling applied to left arm. 12:39 XRAY Wrist LEFT 2 view In Process Unspecified. EDMS 12:52 Tarik Gutierres MD is Referral Physician. rn 13:28 Assist provider with fracture care Circulation, motor and sensation is intact. Set up ko1 for procedure. Performed by Eleuterio Vargas MD Reduced with physical manipulation. Immobilized with OCL splint, Post immobilization, circulation, motor and sensation remain intact. Patient tolerated well. Patient did not have IV access during this emergency room visit. Administered Medications: 11:27 Drug: morphine 4 mg Route: IM; Site: right deltoid; ko1 11:36 Drug: Lidocaine (1 %) 1 vials Volume: 5 ml; Route: Infiltration; ko1 12:08 Drug: morphine 4 mg Route: IM; Site: right deltoid; ko1 Medication: 10:50 VIS not applicable for this client. ko1 Outcome: 12:52 Discharge ordered by MD. rn 13:28 Discharged to home ambulatory, with family. ko1 13:28 Condition: improved 13:28 Discharge instructions given to patient, family, Instructed on discharge instructions, follow up and referral plans. medication usage, Demonstrated understanding of instructions, follow-up care, medications, splint care, Prescriptions given X 1. 13:30 Patient left the ED. ko1 Signatures: Dispatcher [employer] [facility] Nany Pratt Eleuterio Snow MD MD rn Herrera, Deanna 3 La Sales, RN RN 7 Araceli Conrad, FAN RN ko1 Corrections: (The following items were deleted from the chart) 10:44 10:43 PMHx: Hypothyroidism; 7 7 10:44 10:43 PMHx: Anxiety; 7 7 10:44 10:43 PMHx: GERD; 7 7 10:44 10:43 PMHx: Kidney stones; 7 7 10:44 10:43 PMHx: Depression; [facility]
--- NOTE | 2022-02-27 13:05 | RAD REPORT ---
EXAM DESCRIPTION: RAD - Wrist Left 2 View - 02/27/2022 12:37 pm CLINICAL HISTORY: Radial fracture FINDINGS: Splint immobilizes fractures of distal radius and ulna.
[2022-03-01 07:17] VITALS: TEMP 98.2
[2022-03-01 07:18] VITALS: O2SAT 99
[2022-03-01 07:19] VITALS: BP 145/74
== END 2022-02-27 13:30 | disposition home or self-care (01) ==
LOC: ER 10:32
DX: S52.322A Displaced transverse fracture of shaft of left radius, initial encounter for closed fracture (principal); S52.612A Displaced fracture of left ulna styloid process, initial encounter for closed fracture
CPT/HCPCS: 96372; 99284

== ENCOUNTER 2022-04-17 12:47 | Emergency (ER) | payer SELFPAY ==
--- OUTSIDE RECORDS SUMMARY | 2022-04-17 12:49 | XMS REPORT | Continuity of Care Document ---
:1960 Author Organization [facility] t Address [address] [place] [address] Care Team Providers Name Role Phone Unavailable [...] CHOLESTEROL (test code = 73 MG/DL >39 0) CALC LDL CHOL (test code = 2237) 133 MG/DL <100 H NOTE: CALCULATED LDL IS BASED ON KIARA-RODRIGUEZ METHOD WHICHINCLUDES A DJUSTABLE TRIGLYCERIDE:VL DL CHOLESTEROL RATIO.THIS FACT OR VARIES BY MEASURED TRIGLY CERIDE AND NON-HDLCHOLESTE ROL CONCENTRATIONS WITH INCREASED CALCULATED LDL SEENIN HIGHER T RIGLYCERIDE OR LOWER NON-HDL S PECIMENS. FOR MOREINFORMATION , SEE CLIENT ANNOUNCEMENT AT [email or web address] RISK RATIO LDL/HDL (test code = 1.82 RATIO <3.22 8) COMPREHENSIVE METABOLIC [id number] 06:25:41 Test Item Value Reference Range Interpretation Comments GLUCOSE (test code = 96 MG/DL 70-99 2216) BUN (test code = 11 MG/DL 8-2207) CREATININE (test 0.87 MG/DL 0.60-1.30 code = 2214) eGFR (2020 CKD-EPI) 75 >60 (test code = 57487) ML/MIN/1.73 CALC BUN/CREAT (test 13 RATIO 6-28 code = 2235) SODIUM (test code = 142 MEQ/L 073-708 4790) POTASSIUM (test code 4.6 MEQ/L 3.5-5.4 = [...] [Automated message] (test code = 2207) The [employer] which generated this result transmitted ref erence range: <=1.2. T he reference range was not used to int erpret this result as normal/abnormal . ALKALINE PHOSPHATASE 98 U/L 40-140 (test code = 2204) AST (test code = 18 U/L 9-40 2217) ALT (test code = 10 U/L 5-40 UNLESS OTH ERWISE 2218) INDICATED, ALL TESTING PERFORM ED ATCLINICAL PATH OLOGY LABORATORIES, [facility]. [address] [place] [address] [facility] DIRECTOR: CHELI XIONG M.D. CLIA NUMBER [id number] CAP ACCREDITATION N O. [id number] HEMOGLOBIN [id number] 03:23:08 Test Item Value Reference Range Interpretation Comments HEMOGLOBIN A1c (test code = 14247) 5.3 % 4.2-5.6
[2022-04-17] MEDS ORDERED: IBUPROFEN 400 MG TAB ONE (15:11)
[2022-04-17] MEDS ORDERED: HYDROCODONE/APAP 7.5/325 MG TAB ONE (15:12)
--- NOTE | 2022-04-17 15:44 | RAD REPORT ---
EXAM DESCRIPTION: RAD - Wrist Left 3 View - 04/17/2022 3:37 pm CLINICAL HISTORY: PAIN Pain COMPARISON: Wrist Left 2 View dated 02/27/2022; Wrist Left 3 View dated 02/27/2022 FINDINGS: Diffuse osteopenia is seen. Mildly impacted intra-articular fracture of the distal radius is present. Ulnar styloid avulsion fracture also seen.
--- NOTE | 2022-04-17 16:14 | ER ---
Nurse's Notes [facility] Name: Samantha Decker Age: 61 yrs Sex: Female : 1960 Arrival Date: 04/17/2022 Time: 12:48 Bed DIS2 Private MD: Diagnosis: Pain in left wrist Presentation: 04/17 13:03 Chief complaint: Patient states: Broke L wrist 7 weeks ago. Stilll has pain and ll1 swelling to L wrist. 13:03 Method Of Arrival: Ambulatory ll1 13:04 Coronavirus screen: Vaccine status: Patient reports being unvaccinated. Client denies ll1 travel out of the [place] in the last 14 days. At this time, the client does not indicate any symptoms associated with coronavirus-19. Ebola Screen: Patient denies travel to an Ebola-affected area in the 21 days before illness onset. Initial Sepsis Screen: Does the patient meet any 2 criteria? HR > 90 bpm. No. Patient's initial sepsis screen is negative. Does the patient have a suspected source of infection? Yes: Bone or joint infection. Risk Assessment: Do you want to hurt yourself or someone else? Patient reports no desire to harm self or others. Onset of symptoms was February 24, 2022. 13:04 Acuity: KARRIE 4 ll1 Triage Assessment: 13:06 General: Appears uncomfortable, Behavior is cooperative, appropriate for age. Pain: ll1 Complains of pain in left arm Pain currently is 8 out of 10 on a pain scale. Quality of pain is described as aching. Musculoskeletal: Circulation, motion, and sensation intact. Capillary refill < 3 seconds, Reports pain in left arm. Historical: - PMHx: 13:06 Hypothyroidism; ll1 - Immunization history:: Client reports receiving the 2nd dose of the Covid vaccine. - Social history:: Smoking status: Patient denies any tobacco usage or history of. Screenin:50 Abuse screen: Denies threats or abuse. Denies injuries from another. Nutritional jl7 screening: No deficits noted. Tuberculosis screening: No symptoms or risk factors identified. Fall Risk Total Arora Fall Scale indicates No Risk (0-24 pts). Vital Signs: 13:04 BP 136 / 80; Pulse 95; Resp 16; Temp 98.9; Pulse Ox 100% ; Weight 86.18 kg; Height 5 ll1 ft. 7 in. (170.18 cm); Pain 8/10; 16:50 BP 181 / 75; Pulse 74; Resp 16; Pulse Ox 98% ; Pain 6/10; jl7 13:04 Body Mass Index 29.76 (86.18 kg, 170.18 cm) ll1 ED Course: 12:48 Patient arrived in ED. as 13:06 Triage completed. ll1 13:07 Arm band placed on. ll1 13:25 Berry Barnhart PA is PHCP. cp 13:25 Berry Arzola MD is Attending Physician. cp 15:09 Nurys Bray, RN is Primary Nurse. jl7 15:39 XRAY Wrist LEFT 3 view In Process Unspecified. EDMS 16:12 Antonino Pascual MD is Referral Physician. cp 16:50 Patient has correct armband on for positive identification. jl7 16:50 No provider procedures requiring assistance completed. Patient did not have IV access jl7 during this emergency room visit. Orthoglass splint: Sugar tong splint applied on left arm. Administered Medications: 15:12 Drug: Hydrocodone-Acetaminophen (7.5 mg-325 mg) 1 tabs Route: PO; jl7 16:50 Follow up: Response: No adverse reaction; Pain is decreased jl7 15:12 Drug: Ibuprofen 800 mg Route: PO; jl7 16:49 Follow up: Response: No adverse reaction; Pain is decreased jl7 Medication: 16:50 VIS not applicable for this client. jl7 Outcome: 16:13 Discharge ordered by MD. cp 16:50 Discharged to home ambulatory. jl7 16:50 Condition: stable 16:50 Discharge instructions given to patient, Instructed on discharge instructions, follow up and referral plans. medication usage, Demonstrated understanding of instructions, follow-up care, medications, Prescriptions given X 2. 16:51 Patient left the ED. jl7 Signatures: Dispatcher [employer] EDMS Padmini Bone as Berry Barnhart PA PA cp Nurys Bray, RN RN jl7 Kaleb Porras RN RN ll1
--- NOTE | 2022-04-17 16:14 | EDPHYS ---
Physician Documentation [facility] Name: Samantha Decker Age: 61 yrs Sex: Female : 1960 Arrival Date: 04/17/2022 Time: 12:48 Bed DIS2 Private MD: CARLITA Physician Berry Arzola HPI: 04/17 15:15 This 61 yrs old Female presents to ER via Ambulatory with complaints of Wrist Pain - cp swelling. 15:15 The patient or guardian reports pain, swelling, tenderness. The complaints affect the cp left wrist diffusely. Context: resulted from a fall. Onset: The symptoms/episode began/occurred 7 week(s) ago. 15:15 Associated signs and symptoms: Pertinent negatives: cyanosis distally, decreased cp sensation distally. 15:15 Patient reports sustaining fracture to left wrist from fall 7 weeks ago and being seen cp by DR Gutierres for f/u. Historical: - PMHx: 13:06 Hypothyroidism; ll1 - Immunization history:: Client reports receiving the 2nd dose of the Covid vaccine. - Social history:: Smoking status: Patient denies any tobacco usage or history of. ROS: 15:20 Constitutional: Negative for body aches, chills, fever, poor PO intake. cp 15:20 Eyes: Negative for injury, pain, redness, and discharge. cp 15:20 Cardiovascular: Negative for chest pain, palpitations. 15:20 Respiratory: Negative for cough, shortness of breath, wheezing. 15:20 MS/extremity: Positive for decreased range of motion, deformity, pain, swelling, tenderness, of the left wrist, Negative for paresthesias. 15:20 Neuro: Positive for weakness, of the left hand and left wrist, Negative for numbness, tingling. 15:20 All other systems are negative. Exam: 15:25 Constitutional: The patient appears in no acute distress, alert, awake, non-toxic, well cp developed, well nourished. 15:25 Head/Face: Normocephalic, atraumatic. cp 15:25 Chest/axilla: Inspection: normal. 15:25 Cardiovascular: Rate: normal. 15:25 Respiratory: the patient does not display signs of respiratory distress, Respirations: normal, no use of accessory muscles. 15:25 Musculoskeletal/extremity: Extremities: grossly normal except: noted in the left wrist: decreased ROM, deformity, pain, swelling, tenderness, ROM: limited active range of motion, in the left wrist, limited passive range of motion due to pain, in the left wrist, Pulses: noted to be 2+ in the left radial artery, the left hand and left wrist Sensation intact. 15:25 Skin: cellulitis, is not appreciated, no rash present. Vital Signs: 13:04 BP 136 / 80; Pulse 95; Resp 16; Temp 98.9; Pulse Ox 100% ; Weight 86.18 kg; Height 5 ll1 ft. 7 in. (170.18 cm); Pain 8/10; 16:50 BP 181 / 75; Pulse 74; Resp 16; Pulse Ox 98% ; Pain 6/10; jl7 13:04 Body Mass Index 29.76 (86.18 kg, 170.18 cm) ll1 Procedures: 17:00 Splinting: Splint applied to left wrist using Orthoglass splint, sugar tong type. cp applied by nurse. Examined by me, post splint application: neurovascular intact, Patient tolerated well. MDM: 14:27 Patient medically screened. cp 16:13 Data reviewed: vital signs, nurses notes, radiologic studies, plain films. cp 16:13 Test interpretation: by ED physician or midlevel provider: plain radiologic studies. cp Counseling: I had a detailed discussion with the patient and/or guardian regarding: the historical points, exam findings, and any diagnostic results supporting the discharge/admit diagnosis, radiology results, the need for outpatient follow up, for definitive care, a orthopedic surgeon, to return to the emergency department if symptoms worsen or persist or if there are any questions or concerns that arise at home. Response to treatment: the patient's symptoms have mildly improved after treatment, and as a result, I will discharge patient. 04/17 14:59 Order name: XRAY Wrist LEFT 3 view; Complete Time: 15:56 cp 04/17 15:56 Interpretation: Report reviewed. 04/17 15:56 Order name: Sugar Tong Forearm Splint; Complete Time: 16:49 cp Administered Medications: 15:12 Drug: Hydrocodone-Acetaminophen (7.5 mg-325 mg) 1 tabs Route: PO; jl7 16:50 Follow up: Response: No adverse reaction; Pain is decreased jl7 15:12 Drug: Ibuprofen 800 mg Route: PO; jl7 16:49 Follow up: Response: No adverse reaction; Pain is decreased jl7 Disposition Summary: 04/17/22 16:13 Discharge Ordered Location: Home cp Problem: an ongoing problem cp Symptoms: have improved cp Condition: Stable cp Diagnosis - Pain in left wrist cp Followup: cp - With: Antonino Pascual MD - When: 2 - 3 days - Reason: left wrist pain Discharge Instructions: - Discharge Summary Sheet cp - Wrist Pain, Adult cp Forms: - Medication Reconciliation Form cp - Thank You Letter cp - Antibiotic Education cp - Prescription Opioid Use cp Prescriptions: - Ibuprofen 800 mg Oral Tablet - take 1 tablet by ORAL route every 8 hours As needed take with food; 30 tablet; cp Refills: 0, Product Selection Permitted - Tylenol-Codeine #3 300 mg-30 mg Oral - take 2 tablet by ORAL route every 8-10 hours; 12 tablet; Refills: 0, Product cp Selection Permitted Addendum: 04/20/2022 08:28 Co-signature as Attending Physician, Berry Arzola MD I agree with the assessment and c fish plan of care. Signatures: Dispatcher [employer] Berry Little MD MD cha Page, Corey, CARLINE CROWLEY cp Nurys Bray, RN RN jl7 Kaleb Porras RN RN ll1
[2022-04-17 16:56] VITALS: TEMP 98.9
[2022-04-17 16:57] VITALS: BP 181/75; O2SAT 98
== END 2022-04-17 16:51 | disposition home or self-care (01) ==
LOC: ER 12:47
DX: M25.532 Pain in left wrist (principal)
CPT/HCPCS: 99284

== ENCOUNTER 2022-05-22 14:13 | Emergency (ER) | payer SELFPAY ==
--- OUTSIDE RECORDS SUMMARY | 2022-05-22 14:17 | XMS REPORT | Continuity of Care Document ---
:1960 Author Organization [facility] t Address [address] [place] [address] Care Team Providers Name Role Phone Unavailable [...] MOREINFORMATION , SEE CLIENT ANNOUNCEMENT AT [email or web address] RISK RATIO LDL/HDL (test code = 1.82 RATIO <3.22 8) COMPREHENSIVE METABOLIC [id number] 06:25:41 Test Item Value Reference Range Interpretation Comments GLUCOSE (test code = 96 MG/DL 70-99 2216) BUN (test code = 11 MG/DL 8-23 2207) CREATININE (test 0.87 MG/DL 0.60-1.30 code = 2214) eGFR (2020 CKD-EPI) 75 >60 (test code = 63295) ML/MIN/1.73 CALC BUN/CREAT (test 13 RATIO 6-28 code = 2235) SODIUM (test code = 142 MEQ/L 789-176 7256) POTASSIUM (test code 4.6 MEQ/L 3.5-5.4 = [...] [Automated message] (test code = 2207) The [employer] which generated this result transmitted ref erence range: <=1.2. T he reference range was not used to int erpret this result as normal/abnormal . ALKALINE PHOSPHATASE 98 U/L 40-140 (test code = 2204) AST (test code = 18 U/L 9-40 2217) ALT (test code = 10 U/L 5-40 UNLESS OTH ERWISE 2218) INDICATED, ALL TESTING PERFORM ED ATCLINICAL PATH OLOGY LABORATORIES, [facility]. [address] [place] [address] [facility] DIRECTOR: CHELI XIONG M.D. CLIA NUMBER [id number] CAP ACCREDITATION N O. [id number] HEMOGLOBIN [id number] 03:23:08 Test Item Value Reference Range Interpretation Comments HEMOGLOBIN A1c (test code = 73015) 5.3 % 4.2-5.6
[2022-05-22] MEDS ORDERED: HYDROCODONE/CHLORPHEN 5 ML/OSYR ONE (14:46)
[2022-05-22 15:31] LABS: SARS-COV-2 RT PCR NEGATIVE (NEGATIVE)
--- NOTE | 2022-05-22 15:41 | EDPHYS ---
Physician Documentation [facility] Name: Samantha Decker Age: 61 yrs Sex: Female : 1960 Arrival Date: 05/22/2022 Time: 14:16 Bed 12 Private MD: ED Physician Sammy Prakash HPI: 05/22 14:50 This 61 yrs old Female presents to ER via Ambulatory with complaints of Fever, Cough, snw Congestion. 14:50 The patient reports fever, not measured (subjective). Onset: The symptoms/episode snw began/occurred acutely. Modifying factors: there are no obvious modifying factors. Associated signs and symptoms: Pertinent positives: cough, decreased appetite, sinus congestion, shortness of breath. Severity of symptoms: At their worst the symptoms were moderate. The patient has not experienced similar symptoms in the past. The patient has not recently seen a physician. Historical: - Allergies: 14:33 No Known Allergies; aa5 - PMHx: 14:33 Hypothyroidism; Acid Reflux; Anxiety; aa5 - Immunization history:: Adult Immunizations unknown. - Social history:: Smoking status: Patient denies any tobacco usage or history of. ROS: 14:48 Eyes: Negative for injury, pain, redness, and discharge, ENT: Negative for injury, snw pain, and discharge, Neck: Negative for injury, pain, and swelling, Cardiovascular: Negative for chest pain, palpitations, and edema. 14:48 Abdomen/GI: Negative for abdominal pain, nausea, vomiting, diarrhea, and constipation, Back: Negative for injury and pain, : Negative for injury, bleeding, discharge, and swelling, MS/Extremity: Negative for injury and deformity, Skin: Negative for injury, rash, and discoloration, Neuro: Negative for headache, weakness, numbness, tingling, and seizure, Psych: Negative for depression, anxiety, suicide ideation, homicidal ideation, and hallucinations. 14:48 Constitutional: Positive for body aches, fatigue, fever, malaise, poor PO intake. 14:48 Respiratory: Positive for cough, wheezing. Exam: 14:46 Constitutional: This is a well developed, well nourished patient who is awake, alert, snw and in no acute distress. Head/Face: Normocephalic, atraumatic. Eyes: Pupils equal round and reactive to light, extra-ocular motions intact. Lids and lashes normal. Conjunctiva and sclera are non-icteric and not injected. Cornea within normal limits. Periorbital areas with no swelling, redness, or edema. ENT: Nares patent. No nasal discharge, no septal abnormalities noted. Tympanic membranes are normal and external auditory canals are clear. Oropharynx with no redness, swelling, or masses, exudates, or evidence of obstruction, uvula midline. Mucous membranes moist. Neck: Trachea midline, no thyromegaly or masses palpated, and no cervical lymphadenopathy. Supple, full range of motion without nuchal rigidity, or vertebral point tenderness. No Meningismus. Chest/axilla: Normal chest wall appearance and motion. Nontender with no deformity. No lesions are appreciated. Cardiovascular: Regular rate and rhythm with a normal S1 and S2. No gallops, murmurs, or rubs. Normal PMI, no JVD. No pulse deficits. Abdomen/GI: Soft, non-tender, with normal bowel sounds. No distension or tympany. No guarding or rebound. No evidence of tenderness throughout. Back: No spinal tenderness. No costovertebral tenderness. Full range of motion. 14:46 Skin: Warm, dry with normal turgor. Normal color with no rashes, no lesions, and no evidence of cellulitis. MS/ Extremity: Pulses equal, no cyanosis. Neurovascular intact. Full, normal range of motion. Neuro: Awake and alert, GCS 15, oriented to person, place, time, and situation. Cranial nerves II-XII grossly intact. Motor strength 5/5 in all extremities. Sensory grossly intact. Cerebellar exam normal. Normal gait. Psych: Awake, alert, with orientation to person, place and time. Behavior, mood, and affect are within normal limits. 14:46 Respiratory: the patient does not display signs of respiratory distress, Respirations: normal, Breath sounds: bronchial sounds, that are moderate, are heard diffusely. Vital Signs: 14:32 BP 156 / 81; Pulse 86; Resp 16 S; Temp 98.6(O); Pulse Ox 100% on R/A; Weight 86.18 kg aa5 (R); Height 5 ft. 7 in. (170.18 cm) (R); 14:32 Body Mass Index 29.76 (86.18 kg, 170.18 cm) aa5 MDM: 14:43 Patient medically screened. snw 15:41 Data reviewed: vital signs, nurses notes. Data interpreted: Pulse oximetry: on room air snw is 100 %. Interpretation: normal. Counseling: I had a detailed discussion with the patient and/or guardian regarding: the historical points, exam findings, and any diagnostic results supporting the discharge/admit diagnosis, the presence of at least one elevated blood pressure reading (>120/80) during this emergency department visit, lab results, the need for outpatient follow up. Special discussion: I have referred the patient to see his PCP for further evaluation of high blood pressure. Based on the history and exam findings, there is no indication for further emergent testing or inpatient evaluation. I discussed with the patient/guardian the need to see the primary care provider for further evaluation of the symptoms. 05/22 14:24 Order name: COVID-19/FLU A+B/RSV; Complete Time: 15:39 snw Administered Medications: 14:51 Drug: Tussionex Pennkinetic ER (chlorpheniramine-hydrocodone) Suspension 5 ml Route: PO;aa5 Disposition: 05/23 12:30 Co-signature as Attending Physician, Sammy Prakash MD I agree with the assessment and rt plan of care. Disposition Summary: 05/22/22 15:40 Discharge Ordered Location: Home snw Condition: Stable snw Diagnosis - Influenza due to identified novel influenza A virus snw Followup: snw - With: Emergency Department - When: As needed - Reason: Worsening of condition Followup: snw - With: Private Physician - When: 5 - 6 days - Reason: Recheck today's complaints, Continuance of care, Re-evaluation by your physician Discharge Instructions: - Discharge Summary Sheet snw - Fever, Adult snw - Influenza, Adult snw - Cough, Adult snw - Rehydration, Adult snw Forms: - Medication Reconciliation Form snw - Thank You Letter snw - Antibiotic Education snw - Prescription Opioid Use snw - Work release form snw Prescriptions: - Pepcid 20 mg Oral Tablet - take 1 tablet by ORAL route once daily; 20 tablet; Refills: 0, Product snw Selection Permitted - promethazine 25 mg Oral Tablet - take 1 tablet by ORAL route every 6 hours As needed; 20 tablet; Refills: 0, snw Product Selection Permitted - Tylenol-Codeine #3 300 mg-30 mg Oral - take 1 tablet by ORAL route 1-2 times daily; 10 tablet; Refills: 0, Product snw Selection Permitted Signatures: Dispatcher [employer] Yessi Marie FNP-C PROJECT MANAGEMENT PROFESSOR-Маринаw Missy Colunga, RN RN aa5 Sammy Prakash MD MD rt
--- NOTE | 2022-05-22 15:41 | ER ---
Nurse's Notes [facility] Name: Samantha Decker Age: 61 yrs Sex: Female : 1960 Arrival Date: 05/22/2022 Time: 14:16 Bed 12 Private MD: Diagnosis: Influenza due to identified novel influenza A virus Presentation: 05/22 14:32 Chief complaint: Patient states: fever, productive cough, and congestion that began aa5 Friday. Coronavirus screen: congestion, cough unrelated to allergies, fever. Ebola Screen: Patient denies travel to an Ebola-affected area in the 21 days before illness onset. Initial Sepsis Screen: Does the patient meet any 2 criteria? No. Patient's initial sepsis screen is negative. Does the patient have a suspected source of infection? Yes:. Risk Assessment: Do you want to hurt yourself or someone else? Patient reports no desire to harm self or others. Onset of symptoms was May 2022. 14:32 Method Of Arrival: Ambulatory aa5 14:32 Acuity: KARRIE 3 aa5 Historical: - Allergies: 14:33 No Known Allergies; aa5 - PMHx: 14:33 Hypothyroidism; Acid Reflux; Anxiety; aa5 - Immunization history:: Adult Immunizations unknown. - Social history:: Smoking status: Patient denies any tobacco usage or history of. Vital Signs: 14:32 BP 156 / 81; Pulse 86; Resp 16 S; Temp 98.6(O); Pulse Ox 100% on R/A; Weight 86.18 kg aa5 (R); Height 5 ft. 7 in. (170.18 cm) (R); 14:32 Body Mass Index 29.76 (86.18 kg, 170.18 cm) aa5 ED Course: 14:16 Patient arrived in ED. mr 14:23 Yessi Sanchez [facility]-C [facility]. snw 14:23 Sammy Prakash MD is Attending Physician. snw 14:32 Arm band placed on. aa5 14:33 Triage completed. aa5 15:21 COVID-19/FLU A+B/RSV Sent. iw 16:02 Patricia Clement, RN is Primary Nurse. iw Administered Medications: 14:51 Drug: Tussionex Pennkinetic ER (chlorpheniramine-hydrocodone) Suspension 5 ml Route: PO;aa5 Outcome: 15:40 Discharge ordered by MD. sandoval 16:02 Patient left the ED. iw Signatures: Yessi Sanchez, ISABELLE [employer] MAINFRAME SYSTEMS PROGRAMMER-Nany Sutton Irene, RN RN iw Missy Colunga, FAN RN aa5
[2022-05-22 16:06] VITALS: BP 156/81; TEMP 98.6; O2SAT 100
== END 2022-05-22 16:02 | disposition home or self-care (01) ==
LOC: ER 14:13
DX: J10.1 Influenza due to other identified influenza virus with other respiratory manifestations (principal); Z20.822 Contact with and (suspected) exposure to COVID-19
CPT/HCPCS: 0241U

== ENCOUNTER 2022-07-30 09:04 | Emergency (ER) | payer OTHER, SELFPAY ==
--- OUTSIDE RECORDS SUMMARY | 2022-07-30 09:42 | XMS REPORT | Continuity of Care Document ---
:1960 Author Organization [facility] t Address [address] [place] [address] Care Team Providers Name Role Phone Unavailable [...] = 1.82 RATIO <3.22 8) COMPREHENSIVE METABOLIC [id number] 06:25:41 Test Item Value Reference Range Interpretation Comments GLUCOSE (test code = 96 MG/DL 70-99 2216) BUN (test code = 11 MG/DL 8-2207) CREATININE (test 0.87 MG/DL 0.60-1.30 code = 2214) eGFR (2020 CKD-EPI) 75 >60 (test code = 37927) ML/MIN/1.73 CALC BUN/CREAT (test 13 RATIO - code = 2235) SODIUM (test code = 142 MEQ/L 508-399 4155) POTASSIUM (test code 4.6 MEQ/L 3.5-5.4 = [...] [Automated message] (test code = 2207) The [employer] which generated this result transmitted ref erence range: <=1.2. T he reference range was not used to int erpret this result as normal/abnormal . ALKALINE PHOSPHATASE 98 U/L 40-140 (test code = 2204) AST (test code = 18 U/L 9-40 2217) ALT (test code = 10 U/L 5-40 UNLESS OTH ERWISE 2218) INDICATED, ALL TESTING PERFORM ED ATCLINICAL PATH OLOGY LABORATORIES, [facility]. [address] [place] [address] [facility] DIRECTOR: CHELI XIONG M.D. CLIA NUMBER [id number] CAP ACCREDITATION N O. [id number] HEMOGLOBIN [id number] 03:23:08 Test Item Value Reference Range Interpretation Comments HEMOGLOBIN A1c (test code = 29218) 5.3 % 4.2-5.6
[2022-07-30] MEDS ORDERED: ACETAMINOPHEN 325 MG TABLET ONE (09:47)
[2022-07-30] MEDS ORDERED: GUAIFENESIN/DM 5 ML UCUP ONE (09:48)
[2022-07-30 10:31] LABS: SARS-COV-2 RT PCR POSITIVE (NEGATIVE)
--- NOTE | 2022-07-30 10:38 | RAD REPORT ---
EXAM DESCRIPTION: Jaylen Single View07/30/2022 9:53 am CLINICAL HISTORY: cough, sob COMPARISON: No comparisons TECHNIQUE: Portable AP view of the chest. FINDINGS: The lungs are clear. No pneumothorax or effusion. The cardiomediastinal contours are unrem arkable. IMPRESSION: No acute cardiopulmonary process.
--- NOTE | 2022-07-30 11:01 | ER ---
Nurse's Notes [facility] Name: Samantha Decker Age: 62 yrs Sex: Female : 1960 Arrival Date: 07/30/2022 Time: 09:07 Bed DIS3 Private MD: Diagnosis: Coronavirus infection, unspecified Presentation: 07/30 09:31 Chief complaint: Patient states: she has a cough, headache, congestion that started ap3 last night and the cough was so bad it kept her up all night. Coronavirus screen: Client presents with at least one sign or symptom that may indicate coronavirus-19. Ebola Screen: No symptoms or risks identified at this time. Initial Sepsis Screen: Does the patient meet any 2 criteria? No. Patient's initial sepsis screen is negative. Does the patient have a suspected source of infection? No. Patient's initial sepsis screen is negative. Risk Assessment: Do you want to hurt yourself or someone else? Patient reports no desire to harm self or others. Onset of symptoms was July 29, 2022. 09:31 Method Of Arrival: Ambulatory ap3 09:31 Acuity: KARRIE 4 ap3 Triage Assessment: 09:32 Headache History: Denies prior headaches. General: Appears uncomfortable, Behavior is ap3 calm, cooperative. Pain: Complains of pain in face Pain began gradually, 1 day ago. Neuro: Level of Consciousness is awake, alert, obeys commands, Oriented to person, place, time, situation. Cardiovascular: Patient's skin is warm and dry. Respiratory: Reports cough that is Airway is patent Respiratory effort is even, unlabored, Respiratory pattern is regular, symmetrical. Historical: - Allergies: 09:32 Aspirin; ap3 - PMHx: 09:32 acid reflux; Anxiety; Hypothyroidism; ap3 - Immunization history:: Client reports having NOT received the Covid vaccine. - Social history:: Smoking status: Patient denies any tobacco usage or history of. Screenin:33 [facility] ED Fall Risk Assessment (Adult) History of falling in the last 3 months, ap3 including since admission No falls in past 3 months (0 pts). Abuse screen: Denies threats or abuse. Nutritional screening: No deficits noted. Tuberculosis screening: No symptoms or risk factors identified. Assessment: 09:45 General: Appears in no apparent distress. ill, Behavior is calm, cooperative, ko1 appropriate for age. Pain: Complains of pain in face. Neuro: No deficits noted. Cardiovascular: No deficits noted. Respiratory: Reports shortness of breath on exertion cough that is non-productive. GI: Reports nausea. : No deficits noted. EENT: No deficits noted. Derm: No deficits noted. Musculoskeletal: No deficits noted. Vital Signs: 09:31 BP 149 / 73; Pulse 97; Resp 17; Temp 99.5; Pulse Ox 99% ; Weight 78.02 kg; ap3 10:54 BP 123 / 70; Pulse 92; Resp 18; Temp 98.8(O); Pulse Ox 99% ; ko1 ED Course: 09:07 Patient arrived in ED. mr 09:11 Ki Lepe PA is PHCP. rose 09:12 Eleuterio Vargas MD is Attending Physician. jm 09:30 Araceli Conrad, FAN is Primary Nurse. ko1 09:32 Triage completed. ap3 09:33 Arm band placed on right wrist. ap3 09:40 COVID-19/FLU A+B/RSV Sent. ko1 09:45 Patient has correct armband on for positive identification. Placed in gown. Bed in low ko1 position. Call light in reach. Side rails up X 1. Client placed on continuous cardiac and pulse oximetry monitoring. NIBP monitoring applied. secured entrance monitor on. 09:59 Chest Single View XRAY In Process Unspecified. EDMS 10:54 No provider procedures requiring assistance completed. Patient did not have IV access ko1 during this emergency room visit. Administered Medications: 09:46 Drug: Acetaminophen 650 mg Route: PO; ko1 09:46 Drug: Robitussin Pediatric (dextromethorphan) Liquid 10 mg Route: PO; ko1 Medication: 09:45 VIS not applicable for this client. ko1 Outcome: 11:00 Discharge ordered by . jeffrey 11:13 Discharged to home ambulatory. ko1 11:13 Condition: stable 11:13 Discharge instructions given to patient, Instructed on discharge instructions, follow up and referral plans. medication usage, Demonstrated understanding of instructions, follow-up care, medications, Prescriptions given X 1. 11:14 Patient left the ED. ko1 Signatures: Dispatcher [employer] EDMS Ki Lepe PA PA jmm Rivera, Mary Jazmyn Champagne RN RN ap3 Araceli Conrad RN RN ko1 Corrections: (The following items were deleted from the chart) 10:54 09:45 BP 123 / 70; Pulse 92bpm; Resp 18bpm; Pulse Ox 99%; Temp 98.8F Oral; ko1 ko1
--- NOTE | 2022-07-30 11:01 | EDPHYS ---
Physician Documentation [facility] Name: Samantha Decker Age: 62 yrs Sex: Female : 1960 Arrival Date: 07/30/2022 Time: 09:07 Bed DIS3 Private MD: ED Physician Eleuterio Vargas HPI: 07/30 09:31 This 62 yrs old Female presents to ER via Ambulatory with complaints of Headache, jmm Breathing Difficulty, Nausea, Cough. 09:31 Is a 62-year-old female with history of anxiety, hypothyroidism the presents emerged [facility] part with complaints of cough, congestion, body aches, headache beginning last night. Denies vomiting or abdominal pain.. Historical: - Allergies: 09:32 Aspirin; ap3 - PMHx: 09:32 acid reflux; Anxiety; Hypothyroidism; ap3 - Immunization history:: Client reports having NOT received the Covid vaccine. - Social history:: Smoking status: Patient denies any tobacco usage or history of. ROS: 09:31 Constitutional: Positive for body aches. jmm 09:31 ENT: Positive for sore throat. 09:31 Respiratory: Positive for cough. 09:31 All other systems are negative. Exam: 09:31 Constitutional: This is a well developed, well nourished patient who is awake, alert, jmm and in no acute distress. Head/Face: atraumatic. Eyes: EOMI, no conjunctival erythema appreciated 09:31 Neck: Trachea midline, Supple Chest/axilla: Normal chest wall appearance and motion. Cardiovascular: Regular rate and rhythm. No edema appreciated Respiratory: Normal respirations, no respiratory distress appreciated Abdomen/GI: Non distended Back: Normal ROM Skin: General appearance color normal MS/ Extremity: Moves all extremities, no obvious deformities appreciated, no edema noted to the lower extremities Neuro: Awake and alert Psych: Behavior is normal, Mood is normal, Patient is cooperative and pleasant 09:31 ENT: Posterior pharynx: erythema, that is mild. Vital Signs: 09:31 BP 149 / 73; Pulse 97; Resp 17; Temp 99.5; Pulse Ox 99% ; Weight 78.02 kg; ap3 10:54 BP 123 / 70; Pulse 92; Resp 18; Temp 98.8(O); Pulse Ox 99% ; ko1 MDM: 09:31 Patient medically screened. jmm 11:00 Differential diagnosis: Pneumonia, viral infection, coronavirus. Data reviewed: vital [facility] signs, nurses notes. 16:05 I considered the following discharge prescriptions or medication management in the [facility] emergency department Medications were administered in the Emergency Department. See MAR. Independent interpretation of the following test(s) in the Emergency Department X-Ray: My interpretation is No infiltrate appreciated. Counseling: I had a detailed discussion with the patient and/or guardian regarding: the historical points, exam findings, and any diagnostic results supporting the discharge/admit diagnosis, lab results, radiology results, the need for outpatient follow up, to return to the emergency department if symptoms worsen or persist or if there are any questions or concerns that arise at home. 07/30 09:37 Order name: COVID-19/FLU A+B/RSV; Complete Time: 10:37 [facility] 07/30 09:37 Order name: Chest Single View XRAY; Complete Time: 10:38 [facility] Administered Medications: 09:46 Drug: Acetaminophen 650 mg Route: PO; ko1 09:46 Drug: Robitussin Pediatric (dextromethorphan) Liquid 10 mg Route: PO; ko1 Disposition: 16:30 Co-signature as Attending Physician, Eleuterio Vargas MD. rn Disposition Summary: 07/30/22 11:00 Discharge Ordered Location: Home [facility] Condition: Stable [facility] Diagnosis - Coronavirus infection, unspecified [facility] Followup: [facility] - With: Private Physician - When: 2 - 3 days - Reason: Recheck today's complaints, Continuance of care, Re-evaluation by your physician Discharge Instructions: - Discharge Summary Sheet [facility] Forms: - Medication Reconciliation Form [facility] - Thank You Letter [facility] - Antibiotic Education [facility] - Prescription Opioid Use [facility] Prescriptions: - promethazine-DM - take 10 milliliter by ORAL route every 4-6 hours As needed; 200 milliliter; [facility] Refills: 0, Product Selection Permitted Signatures: Dispatcher [employer] Ki Park PA PA jm Eleuterio Vargas MD MD rn Prokisch, Amanda RN RN ap3 Araceli Conrad RN RN ko1
[2022-07-30 11:19] VITALS: O2SAT 99
[2022-07-30 11:20] VITALS: BP 123/70; TEMP 98.8
== END 2022-07-30 11:14 | disposition home or self-care (01) ==
LOC: ER 09:04
DX: U07.1 COVID-19 (principal); Z88.6 Allergy status to analgesic agent
CPT/HCPCS: 0241U; 71045

== ENCOUNTER 2024-04-26 07:41 | Emergency (ER) | payer OTHER ==
--- OUTSIDE RECORDS SUMMARY | 2024-04-26 07:44 | XMS REPORT | Continuity of Care Document ---
Author Name Unknown Address [address] [place] [address] [facility] thconnect Address 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 Role Phone Pcp, Patient Does Not Have A Primary Care Physic luzma GILDARDO MCKINLEY Attending Clinician GILDARDO Kumar Attending Clinician UnavailGildardo Craven MD Attending Clinician [phone] Campaigns, Generic Provider Attending Clinician Unavailable Queta Grimaldo Attending Clinician [phone] Queta LONG Attending Clinician Unavailable Queta LONG Admitting Clinician Unavailable Payers Payer Name Policy Type Policy Number Effective Date Expirati on Date Source MEDICARE PART A \T\ B [id number] 2023 00:00:00 Allergies, Adverse Reactions, Alerts Allergy Name Allergy Type Status Severity Reaction(s) Onset Date Inactive Date Treating Clinician Comments Source NO KNOWN ALLERGIE S Drug Class Active [facility] Social History Social Habit Start Date Stop Date Quantity Comments Source Sexual orientation U [facility] History of Social function 2023-10-17 00:00:00 2023-10-17 00:00:00 [facility] Sex assigned at 1960 00:00:00 1960 00:00:00 [facility] Smoking Status Start Date Stop Date Source Tobacco smoking consumption unknown [facility] Medications Ordered Medication Name Filled Medication Name Start Date Stop Date Current Medication? Ordering Clinician Indication Dosage Frequency Signature (SIG) Comments Components Source gabapentin (NEURONTIN) capsule 200 mg 10-04 02:15: 00 10-04 01:17 :00 No 200mg 200 mg, Oral, ONCE, 1 dose, On 10/04/23 at 211, Routine [facility] methylpredn isolone sod succ (SOLU-MEDRO L) injection 125 mg 10-04 02:15: 00 10-04 01:10 :00 No 125mg 125 mg, Intramuscu lar, ONCE, 1 dose, On 10/04/23 at 211, [facility] naproxen (NAPROSYN) tablet 500 mg 10-04 01:15: 10-04 00:36 :00 No 500mg 500 mg, Oral, ONCE, 1 dose, On 10/04/23 at 2015, Routine [facility] HYDROcodone -acetaminop hen (NORCO) 10-325 mg tablet 1 tablet 10-03 23:30: 00 10-03 22:31 :00 No 1{tbl} 1 tablet, Oral, ONCE, 1 dose, On 10/04/23 at 1830, Routine [facility] traMADoL 50 mg tablet 10-03 00:00: 00 Yes [id number] 100mg Take 2 tablets by mouth every 6 (six) hours as needed for Pain (scale 4-6). Indication s: acute pain [facility] naproxen (NAPROSYN) 500 mg tablet 10-03 00:00: 00 Yes [id number] 500mg Take 1 tablet by mouth in the morning and 1 tablet in the evening. Take with meals. [facility] gabapentin (NEURONTIN) 100 mg capsule 10-03 00:00: 00 Yes [id number] 9102 100mg Take 1 capsule by mouth in the morning and 1 capsule at noon and 1 capsule in the evening. [facility] predniSONE 20 mg tablet 2024-0 5-04 00:00: 00 Yes [id number] 9102 1 PO BID x 4 days [facility] Vital Signs Vital Name Observation Time Observation Value Comments João cortez Body height 2023-10-17 13:11:00 170.2 cm [facility] Body weight 2023-10-17 13:11:00 72.122 kg [facility] BMI 2023-10-17 13:11:00 24.90 kg/m2 [facility] Systolic blood pressure 2023-10-05 01:38:00 185 mm[Hg] [facility] Diastolic blood pressure 2023-10-05 01:38:00 91 mm[Hg] [facility] Heart rate 2023-10-05 01:38:00 76 /min Un[facility] Body temperature 2023-10-05 01:38:00 37.06 Sarahy [facility] Respiratory rate 2023-10-05 01:38:00 16 /min [facility] Oxygen saturation in Arterial blood by Pulse oximetry 2023-10-05 01:38:00 100 /min [facility] Body height 2023-10-04 22:11:00 170.2 cm [facility] Body weight 2023-10-04 22:11:00 68.947 kg [facility] BMI 2023-10-04 22:11:00 23.81 kg/m2 [facility] Body height 2023-10-17 13:11:00 170.2 cm [facility] Body weight 2023-10-17 13:11:00 72.122 kg [facility] BMI 2023-10-17 13:11:00 24.90 kg/m2 [facility] Systolic blood pressure 2023-10-05 01:38:00 185 mm[Hg] [facility] Diastolic blood pressure 2023-10-05 01:38:00 91 mm[Hg] [facility] Heart rate 2023-10-05 01:38:00 76 /min Un[facility] Body temperature 2023-10-05 01:38:00 37.06 Sarahy [facility] Respiratory rate 2023-10-05 01:38:00 16 /min [facility] Oxygen saturation in Arterial blood by Pulse oximetry 2023-10-05 01:38:00 100 /min [facility] Procedures Procedure Date / Time Performed Performing Clinicia n Source XR LUMBAR SPINE 2 VW 2023-10-05 00:38:39 Queta Long [facility] XR LUMBAR SPINE 2 VW 2023-10-05 00:38:39 Queta Long [facility] XR ANKLE 3+ VW RIGHT 2023-10-04 22:56:42 Queta Long [facility] XR HIPS 2 VW RIGHT 2023-10-04 22:56:42 Queta Long [facility] XR HUMERUS 2 VW LEFT 2023-10-04 22:56:42 Queta Long [facility] XR SHOULDER 2+ VW LEFT 2023-10-04 22:56:42 Queta Long [facility] XR WRIST 3+ VW LEFT 2023-10-04 22:56:42 Queta Long [facility] XR SHOULDER 2+ VW LEFT 2023-10-04 22:56:42 Queta Long [facility] XR HUMERUS 2 VW LEFT 2023-10-04 22:56:42 Queta Long [facility] XR WRIST 3+ VW LEFT 2023-10-04 22:56:42 Queta Long [facility] XR ANKLE 3+ VW RIGHT 2023-10-04 22:56:42 Queta Long [facility] XR HIPS 2 VW RIGHT 2023-10-04 22:56:42 Queta Long [facility] Encounters Start Date/Time End Date/Time Encounter Type Admission Type Attending Clinicians Care Facility Care Department Encounter ID Source 2023-10-17 08:15:00 2023-10-17 09:56:33 Outpatient R GILDARDO MCKINLEY [facility] [id number] [facility] 2023-10-17 08:15:00 2023-10-17 09:56:33 Office Visit Gildardo Mckinley [facility] [id number] [facility] 2023-10-17 00:00:00 2023-10-17 00:00:00 Travel 1.2.840.1 [id number] [id number] .[id number] [id number] 4.2.7.3.698 084.8 [id number] [facility] 2023-10-15 00:00:00 2023-10-15 11:00:01 Letter (Out) Campaigns, Generic Provider 1.2.840.1 [id number] [facility] 2023-10-04 17:13:00 2023-10-04 20:42:00 Emergency Queta Long 1.2.840.1 [id number] [facility] 2023-10-04 17:13:00 2023-10-04 20:42:00 Emergency X Queta LONG [facility] E[facility] [id number] [facility] 2023-10-04 00:00:00 2023-10-04 00:00:00 Travel 1.2.840.1 [id number] .[id number] [id number] [id number] 084.8 [id number] [facility] Results Test Description Test Time Test Comments Results Result Comments Source XR LUMBAR SPINE 2 VW 01:26:37 ORDERING PHYSICIAN: Queta LONG. CLINICAL HISTORY: low back pain . . TECHNIQUE: 4 views of the lumbar spine TECHNICAL QUALITY: Adequate COMPARISON: None FINDINGS/ [facility] XR SHOULDER 2+ VW LEFT 23:34:19 EXAM: XR HUMERUS 2 VW LEFT, EXAM: XR WRIST 3+ VW LEFT, EXAM: XR SHOULDER 2+ VW LEFT HISTORY: fall COMPARISON: None. FINDINGS: Radiographs of the left shoulder and humerus demonstrate a surgical neckfracture with mild varus angulation with medial cortical craniocaudaloverriding measuring 1.3 cm. Moderate joint space narrowing, subchondralsclerosis and marginal osteophyte formation involve the acromioclavicularjoint. Calcified plaque outlines the aortic arch. Osteopenia is present. Diffuse osteopenia is noted. Imaging of the wrist demonstrates a remote impaction fracture through thedistal radial metaphysis with dorsal tilt of the distal radial fracturefragment with resultant ulnar plus variance. Moderate joint spacenarrowing, subchondral sclerosis and marginal osteophyte formation involvethe radiocarpal and thumb CMC joint. An ulna styloid process avulsionfracture nonunion is present. [facility] XR HUMERUS 2 VW LEFT 23:34:19 EXAM: XR HUMERUS 2 VW LEFT, EXAM: XR WRIST 3+ VW LEFT, EXAM: XR SHOULDER 2+ VW LEFT HISTORY: fall COMPARISON: None. FINDINGS: Radiographs of the left shoulder and humerus demonstrate a surgical neckfracture with mild varus angulation with medial cortical craniocaudaloverriding measuring 1.3 cm. Moderate joint space narrowing, subchondralsclerosis and marginal osteophyte formation involve the acromioclavicularjoint. Calcified plaque outlines the aortic arch. Osteopenia is present. Diffuse osteopenia is noted. Imaging of the wrist demonstrates a remote impaction fracture through thedistal radial metaphysis with dorsal tilt of the distal radial fracturefragment with resultant ulnar plus variance. Moderate joint spacenarrowing, subchondral sclerosis and marginal osteophyte formation involvethe radiocarpal and thumb CMC joint. An ulna styloid process avulsionfracture nonunion is present. [facility] XR WRIST 3+ VW LEFT 23:34:19 EXAM: XR HUMERUS 2 VW LEFT, EXAM: XR WRIST 3+ VW LEFT, EXAM: XR SHOULDER 2+ VW LEFT HISTORY: fall COMPARISON: None. FINDINGS: Radiographs of the left shoulder and humerus demonstrate a surgical neckfracture with mild varus angulation with medial cortical craniocaudaloverriding measuring 1.3 cm. Moderate joint space narrowing, subchondralsclerosis and marginal osteophyte formation involve the acromioclavicularjoint. Calcified plaque outlines the aortic arch. Osteopenia is present. Diffuse osteopenia is noted. Imaging of the wrist demonstrates a remote impaction fracture through thedistal radial metaphysis with dorsal tilt of the distal radial fracturefragment with resultant ulnar plus variance. Moderate joint spacenarrowing, subchondral sclerosis and marginal osteophyte formation involvethe radiocarpal and thumb CMC joint. An ulna styloid process avulsionfracture nonunion is present. [facility] XR ANKLE 3+ VW RIGHT 23:31:59 EXAM: XR ANKLE 3+ VW RIGHT, EXAM: XR HIPS 2 VW RIGHT HISTORY: fall COMPARISON: None. FINDINGS: Images of the right ankle demonstrate no acute fracture or dislocation. Theankle mortise is congruent. Calcaneal spurs are visualized. Radiographs of the right hip demonstrate no acute fracture or dislocation.Femoral acetabular marginal osteophyte formation is seen. Enthesophytes are visualized at the iliac crest and greater trochanter. No soft tissue abnormality is seen. Diffuse osteopenia is noted. [facility] XR HIPS 2 VW RIGHT 23:31:59 EXAM: XR ANKLE 3+ VW RIGHT, EXAM: XR HIPS 2 VW RIGHT HISTORY: fall COMPARISON: None. FINDINGS: Images of the right ankle demonstrate no acute fracture or dislocation. Theankle mortise is congruent. Calcaneal spurs are visualized. Radiographs of the right hip demonstrate no acute fracture or dislocation.Femoral acetabular marginal osteophyte formation is seen. Enthesophytes are visualized at the iliac crest and greater trochanter. No soft tissue abnormality is seen. Diffuse osteopenia is noted. [facility] LIPID [id number] 06:25:41* Test Item Value Reference Range Interpretation Comme nts CHOLESTEROL (test code = 2210) 229 MG/DL <200 H TRIGLYCERIDES (test code = 2232) 122 MG/DL <150 HDL CHOLESTEROL (test code = 2220) 73 MG/DL >39 CALC LDL CHOL (test code = 2237) 133 MG/DL <100 H NOTE: CALCULATED LDL IS BASED ON KIARA-RODRIGUEZ METHOD WHICHINCLUDES ADJUSTABLE TRIGLYCERIDE:VLDL CHOLESTEROL RATIO.THIS FACTOR VARIES BY MEASURED TRIGLYCERIDE AND NON-HDLCHOLESTEROL CONCENTRATIONS WITH INCREASED CALCULATED LDL SEENIN HIGHER TRIGLYCERIDE OR LOWER NON-HDL SPECIMENS. FOR MOREINFORMATION, SEE CLIENT ANNOUNCEMENT AT [email or web address] [email or web address] RATIO LDL/HDL (test code = 2237) 1.82 RATIO <3.22 COMPREHENSIVE METABOLIC [id number] 06:25:41* Test Item Value Reference Range Interpretation Comme nts GLUCOSE (test code = 2216) 96 MG/DL 70-99 BUN (test code = 2207) 11 MG/DL 8-23 CREATININE (test code = 2213) 0.87 MG/DL 0.60-1.30 eGFR (2020 CKD-EPI) (test code = ) 75 ML/MIN/1.73 >60 CALC BUN/CREAT (test code = 2234) 13 RATIO 6-28 SODIUM (test code = 2230) 142 MEQ/L 133-146 POTASSIUM (test code = 2227) 4.6 MEQ/L 3.5-5.4 CHLORIDE (test code = 2214) 104 MEQ/L 95-107 CARBON DIOXIDE (test code = 2205) 24 MEQ/L 19-31 CALCIUM (test code = 2208) 9.4 MG/DL 8.5-10.5 PROTEIN, TOTAL (test code = 2228) 7.6 G/DL 6.1-8.3 ALBUMIN (test code = 2200) 4.5 G/DL 3.5-5.2 CALC GLOBULIN (test code = 2240) 3.1 G/DL 1.9-3.7 CALC A/G RATIO (test code = 2233) 1.5 RATIO 1.0-2.6 BILIRUBIN, TOTAL (test code = 2206) 0.3 MG/DL See_Comment [Automated me ssage] The system which generated this result transmitted reference range: <=1.2. The reference range was not used to interpret this result as normal/abnormal. ALKALINE PHOSPHATASE (test code = 2203) 98 U/L 40-140 AST (test code = 2218) 18 U/L 9-40 ALT (test code = 2219) 10 U/L 5-40 UNLESS OTHERWISE INDICATED, ALL TESTING PERFORMED [facility] [address] [place] [id number] DIRECTOR OF BUSINESS OPERATIONS: CHELI XIONG M.D. [facility] NUMBER [id number] [facility] [place]. [id number] HEMOGLOBIN [id number] 03:23:08* Test Item Value Reference Range Interpretation Comme nts HEMOGLOBIN A1c (test code = 39737) 5.3 % 4.2-5.6 Notes Date/Time Note Provider Source 2023-10-04 20:41:17 Pt given printed and verbal discharge instructions regarding closed nondisplaced fracture of surgical neck of left humerus, fall, and sprain of right ankle, and right hip pain Prescriptions provided Discussed tramadol side affects and to avoid driving/operating machinery/or engaging in activities requiring alertness while taking. Pt verbalized understanding of instructions, pt awake alert oriented, resp reg unlabored, skin w/d, color appropriate for race, moves all ext well,pt encouraged to follow up with pcp Advised to seek medical attention for new/prolonged/worsening of symptoms No adverse reaction to meds given in ER noted upon discharge Awake, alert oriented, resp reg unlabored, skin w/d, pt leaving amb with steady gait, in no apparent distress Sandy Mackenzie RN [facility] My Dentist 2023-10-04 17:09:50 CC: patient presents to the E with complaints of falling and having pain to the right hip, right ankle, left knee, left shoulder, and left wrist. Patient states she fell due to the pain in her right hip. 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 PMHx: see history Awake, alert, oriented, resp reg unlabored, skin warm and dry, color appropriate for race, moves all ext without difficulty, amb with minimal assistance. Appears in no distress. T [facility] [email or web address]
[2024-04-26] MEDS ORDERED: KETOROLAC 30 MG/ML INJ ONE (08:13)
[2024-04-26] MEDS ORDERED: HYDROCODONE/APAP 7.5/325 MG TAB ONE (08:13)
--- NOTE | 2024-04-26 08:54 | EDPHYS ---
Physician Documentation [facility] Name: Samantha Decker Age: 63 yrs Sex: Female : 1960 Arrival Date: 04/26/2024 Time: 07:41 Bed 20 Private MD: ED Physician Berry Arzola HPI: 04/26 08:33 This 63 yrs old Female presents to ER via Ambulatory with complaints of rao Shoulder Pain - left. Historical: - Allergies: 07:52 No Known Allergies; kc6 - PMHx: 07:52 Hypothyroidism; Anxiety; acid reflux; Hypertensive disorder; insomnia; kc6 - PSHx: 07:52 section; kc6 - Immunization history:: Adult Immunizations up to date. - Infectious Disease History:: Denies. - Social history:: Smoking status: Patient reports the use of cigarette tobacco products, smokes one-half pack cigarettes per day. ROS: 08:43 Constitutional: Negative for fever, chills, and weight loss, Eyes: Negative for injury, rao pain, redness, and discharge, ENT: Negative for injury, pain, and discharge, Neck: Negative for injury, pain, and swelling, Cardiovascular: Negative for chest pain, palpitations, and edema, Respiratory: Negative for shortness of breath, cough, wheezing, and pleuritic chest pain, Abdomen/GI: Negative for abdominal pain, nausea, vomiting, diarrhea, and constipation, Back: Negative for injury and pain, : Negative for injury, bleeding, discharge, and swelling, Skin: Negative for injury, rash, and discoloration, Neuro: Negative for headache, weakness, numbness, tingling, and seizure, Psych: Negative for depression, anxiety, suicide ideation, homicidal ideation, and hallucinations, Allergy/Immunology: Negative for hives, rash, and allergies, Endocrine: Negative for neck swelling, polydipsia, polyuria, polyphagia, and marked weight changes, Hematologic/Lymphatic: Negative for swollen nodes, abnormal bleeding, and unusual bruising, 08:43 MS/extremity: Positive for decreased range of motion, pain, swelling, tenderness, of the left bicep and left tricep, Exam: 08:43 Constitutional: This is a well developed, well nourished patient who is awake, alert, rao and in no acute distress. Head/Face: Normocephalic, atraumatic. Eyes: Pupils equal round and reactive to light, extra-ocular motions intact. Lids and lashes normal. Conjunctiva and sclera are non-icteric and not injected. Cornea within normal limits. Periorbital areas with no swelling, redness, or edema. ENT: Nares patent. No nasal discharge, no septal abnormalities noted. Tympanic membranes are normal and external auditory canals are clear. Oropharynx with no redness, swelling, or masses, exudates, or evidence of obstruction, uvula midline. Mucous membranes moist. Neck: Trachea midline, no thyromegaly or masses palpated, and no cervical lymphadenopathy. Supple, full range of motion without nuchal rigidity, or vertebral point tenderness. No Meningismus. Chest/axilla: Normal chest wall appearance and motion. Nontender with no deformity. No lesions are appreciated. Cardiovascular: Regular rate and rhythm with a normal S1 and S2. No gallops, murmurs, or rubs. Normal PMI, no JVD. No pulse deficits. Respiratory: Lungs have equal breath sounds bilaterally, clear to auscultation and percussion. No rales, rhonchi or wheezes noted. No increased work of breathing, no retractions or nasal flaring. Abdomen/GI: Soft, non-tender, with normal bowel sounds. No distension or tympany. No guarding or rebound. No evidence of tenderness throughout. Back: No spinal tenderness. No costovertebral tenderness. Full range of motion. Female : Normal external genitalia. Skin: Warm, dry with normal turgor. Normal color with no rashes, no lesions, and no evidence of cellulitis. Neuro: Awake and alert, GCS 15, oriented to person, place, time, and situation. Cranial nerves II-XII grossly intact. Motor strength 5/5 in all extremities. Sensory grossly intact. Cerebellar exam normal. Normal gait. Psych: Awake, alert, with orientation to person, place and time. Behavior, mood, and affect are within normal limits. 08:43 Musculoskeletal/extremity: ROM: limited active range of motion due to pain, limited passive range of motion due to pain, Circulation is intact in all extremities. Sensation intact. Compartment Syndrome exam of affected extremity: is normal. Vital Signs: 07:51 BP 139 / 76; Pulse 93; Resp 18 S; Pulse Ox 98% on R/A; Weight 69.4 kg (R); Height 5 ft. kc6 7 in. (R); Pain 8/10; 09:10 BP 138 / 76; Pulse 90; Resp 18 S; Pulse Ox 99% on R/A; kc6 07:51 Body Mass Index 23.96 (69.40 kg, 170.18 cm) [facility] 07:51 Pain Scale: Adult kc6 MDM: 07:49 Medical Screening Exam initiated [facility] 08:44 Differential diagnosis: humeral head fracture. Data reviewed: vital signs, nurses [facility] notes, radiologic studies, plain films. Consideration of Admission/Observation Escalation of care including admission/observation considered. I considered the following discharge prescriptions or medication management in the emergency department Medications were administered in the Emergency Department. See MAR. Independent interpretation of the following test(s) in the Emergency Department X-Ray: My interpretation is left shoulder , humerus. Test considered but Not performed: EKG: fracture in september. Labs: no labs. Historians other than the Patient: pt well informed. Care significantly affected by the following chronic conditions: Hypertension, hypothyroid, gerd, anxiety. 04/26 08:40 Order name: Humerus Left XRAY [facility] 04/26 08:08 Order name: Shoulder Immobilizer; Complete Time: 09:[address] [facility] Administered Medications: 08:20 Drug: Ketorolac IM 60 mg IM once Route: IM; Site: right deltoid; [facility] 09:10 Follow up: Response: No adverse reaction; Pain is decreased [facility] 08:20 Drug: Hydrocodone-Acetaminophen PO (7.5 mg-325 mg) 1 tabs PO once Route: PO; [facility] 09:10 Follow up: Response: No adverse reaction; Pain is decreased; RASS: Alert and Calm (0) [facility] Disposition Summary: 04/26/24 08:53 Discharge Ordered Notes: Location: Home [facility] Problem: new rao Symptoms: have improved rao Condition: Stable rao Diagnosis - Fracture of upper end of humerus - non union rao - Pain in left shoulder rao Followup: rao - With: Private Physician - When: 2 - 3 days - Reason: Recheck today's complaints, Continuance of care, Re-evaluation by your physician Followup: rao - With: Tarik Gutierres MD - When: 2 - 3 days - Reason: Recheck today's complaints, Continuance of care, Re-evaluation by your physician Discharge Instructions: - Discharge Summary Sheet rao - Humerus Fracture Treated With Immobilization rao - Musculoskeletal Pain rao - Shoulder Pain rao - Humerus Fracture Treated With Immobilization, [id number] rao - Shoulder Pain, [id number] [facility] Forms: - Medication Reconciliation Form rao - Antibiotic Education rao - Prescription Opioid Use rao - Patient Portal Instructions roa - Leadership Thank You Letter rao Prescriptions: - acetaminophen-codeine 300-30 mg Oral tablet - take 2 tablet ORAL route every 6 hours as needed for pain; 24 tablet; Refills: rao 0, Product Selection Permitted - diclofenac sodium 50 mg Oral tablet, delayed release (enteric coated) - take 1 tablet ORAL route 3 times per day; 30 tablet; Refills: 0, Product rao Selection Permitted - methocarbamol 750 mg Oral tablet - take 1 tablet ORAL route every 4-6 hours; 28 tablet; Refills: 0, Product rao Selection Permitted Signatures: Dispatcher [employer] Berry Little MD MD cha Campbell, Kaitlyn RN RN kc6 Corrections: (The following items were deleted from the chart) 07:49 07:49 Shoulder Left 2 View+RAD.RAD.[email or web address] ordered. EDVA EDMS 07:56 07:49 EKG - Nurse/Tech ordered. rao kc6 08:07 07:49 Sling ordered. rao yeh
--- NOTE | 2024-04-26 08:54 | ER ---
Nurse's Notes [facility] Name: Samantha Decker Age: 63 yrs Sex: Female : 1960 Arrival Date: 04/26/2024 Time: 07:41 Bed 20 Private MD: Diagnosis: Fracture of upper end of humerus-non union;Pain in left shoulder Presentation: 04/26 07:51 Chief complaint: Patient states: she broke her left humerus in September S/P fall and never kc6 followed up with Dr. Gutierres. pt reports 8/10 pain and takes ibuprofen at home. Coronavirus screen: At this time, the client does not indicate any symptoms associated with coronavirus-19. Ebola Screen: No symptoms or risks identified at this time. Initial Sepsis Screen: Does the patient meet any 2 criteria? HR > 90 bpm. Does the patient have a suspected source of infection? No. Patient's initial sepsis screen is negative. Risk Assessment: Do you want to hurt yourself or someone else? Patient reports no desire to harm self or others. Onset of symptoms was April 26, 2024. 07:51 Method Of Arrival: Ambulatory [facility] 07:51 Acuity: KARRIE 4 kc6 Historical: - Allergies: 07:52 No Known Allergies; kc6 - PMHx: 07:52 Hypothyroidism; Anxiety; acid reflux; Hypertensive disorder; insomnia; kc6 - PSHx: 07:52 section; kc6 - Immunization history:: Adult Immunizations up to date. - Infectious Disease History:: Denies. - Social history:: Smoking status: Patient reports the use of cigarette tobacco products, smokes one-half pack cigarettes per day. Screenin:53 [facility] ED Fall Risk Assessment (Adult) History of falling in the last 3 months, 6 including since admission Yes- single mechanical fall (1 pt) Confusion or Disorientation No (0 pts) Intoxicated or Sedated No (0 pts) Impaired Gait No (0 pts) Mobility Assist Device Used No (0 pt) Altered Elimination No (0 pt) Score/Fall Risk Level 0 - 2 = Low Risk Oriented to surroundings, Maintained a safe environment. Abuse screen: Denies threats or abuse. Denies injuries from another. Nutritional screening: No deficits noted. Tuberculosis screening: No symptoms or risk factors identified. Assessment: 07:54 General: Appears in no apparent distress. comfortable, well groomed, well developed, kc6 Behavior is calm, cooperative, appropriate for age. Pain: Complains of pain in anterior aspect of left shoulder Pain currently is 8 out of 10 on a pain scale. at worst was 8 out of 10 on a pain scale. Neuro: Level of Consciousness is awake, alert, obeys commands, Oriented to person, place, time, situation, Appropriate for age. Cardiovascular: Capillary refill < 3 seconds. Respiratory: Airway is patent Trachea midline Respiratory effort is even, unlabored, Respiratory pattern is regular, symmetrical. GI: No signs and/or symptoms were reported involving the gastrointestinal system. : No signs and/or symptoms were reported regarding the genitourinary system. EENT: No signs and/or symptoms were reported regarding the EENT system. Derm: No signs and/or symptoms reported regarding the dermatologic system. Skin is intact, is healthy with good turgor, Skin is pink, warm \T\ dry. Musculoskeletal: No signs and/or symptoms reported regarding the musculoskeletal system. Capillary refill < 3 seconds, Range of motion: limited in left shoulder Bony deformity noted of anterior aspect of left shoulder Crepitus present in left shoulder. 09:10 Reassessment: Patient appears in no apparent distress at this time. No changes from kc6 previously documented assessment. Patient and/or family updated on plan of care and expected duration. Pain level reassessed. Patient is alert, oriented x 3, equal unlabored respirations, skin warm/dry/pink. Vital Signs: 07:51 BP 139 / 76; Pulse 93; Resp 18 S; Pulse Ox 98% on R/A; Weight 69.4 kg (R); Height 5 ft. kc6 7 in. (R); Pain 8/10; 09:10 BP 138 / 76; Pulse 90; Resp 18 S; Pulse Ox 99% on R/A; kc6 07:51 Body Mass Index 23.96 (69.40 kg, 170.18 cm) kc6 07:51 Pain Scale: Adult kc6 ED Course: 07:43 Patient arrived in ED. im 07:45 Ayse Em RN is Primary Nurse. kc6 07:48 Berry Arzola MD is Attending Physician. rao 07:52 Triage completed. kc6 07:52 Arm band placed on. kc6 07:53 Patient has correct armband on for positive identification. Bed in low position. Call kc6 light in reach. Side rails up X 1. Pulse ox on. NIBP on. Door closed. Noise minimized. Lights dimmed. Pillow given. 07:53 Patient maintains SpO2 saturation greater than 95% on room air. kc6 08:53 Tarik Gutierres MD is Referral Physician. rao 08:55 Humerus Left XRAY In Process Unspecified. EDMS 09:11 Shoulder immobilizer applied on left shoulder. kc6 09:11 No provider procedures requiring assistance completed. Patient did not have IV access kc6 during this emergency room visit. Administered Medications: 08:20 Drug: Ketorolac IM 60 mg IM once Route: IM; Site: right deltoid; kc6 09:10 Follow up: Response: No adverse reaction; Pain is decreased kc6 08:20 Drug: Hydrocodone-Acetaminophen PO (7.5 mg-325 mg) 1 tabs PO once Route: PO; kc6 09:10 Follow up: Response: No adverse reaction; Pain is decreased; RASS: Alert and Calm (0) kc6 Medication: 09:12 VIS not applicable for this client. kc6 Outcome: 08:53 Discharge ordered by . rao 09:11 Discharged to home ambulatory, kc6 09:11 Condition: good 09:11 Discharge instructions given to patient, Instructed on discharge instructions, follow up and referral plans. no drinking with medication, no driving heavy equipment, medication usage, Demonstrated understanding of instructions, follow-up care, medications, Prescriptions given X 3, 09:12 Patient left the ED. kc6 Signatures: Dispatcher [employer] EDIL Berry Arzola MD MD cha Campbell, Kaitlyn, RN RN kc6 Odalys Lobo Corrections: (The following items were deleted from the chart) 08:21 07:54 Musculoskeletal: No signs and/or symptoms reported regarding the musculoskeletal kc6 system. Circulation, motion, and sensation intact. Capillary refill < 3 seconds, Range of motion: intact in all extremities, kc6
--- NOTE | 2024-04-26 09:23 | RAD REPORT ---
Exam:Humerus Left CLINICAL HISTORY: Left arm pain FINDINGS: Nonunion of a markedly displaced humeral neck fracture. There appears to be malalignment of the humeral head with respect to the glenohumeral joint.
[2024-04-26 12:05] VITALS: BP 138/76; O2SAT 99
== END 2024-04-26 09:12 | disposition home or self-care (01) ==
LOC: ER 07:41
DX: S42.212K Unspecified displaced fracture of surgical neck of left humerus, subsequent encounter for fracture with nonunion (principal); X58.XXXD Exposure to other specified factors, subsequent encounter; M25.512 Pain in left shoulder; E03.9 Hypothyroidism, unspecified; K21.9 Gastro-esophageal reflux disease without esophagitis; F41.9 Anxiety disorder, unspecified; I10 Essential (primary) hypertension; G47.00 Insomnia, unspecified; F17.210 Nicotine dependence, cigarettes, uncomplicated
CPT/HCPCS: 96372; 99284

== ENCOUNTER 2024-05-19 06:40 | Emergency (ER) | payer OTHER ==
--- OUTSIDE RECORDS SUMMARY | 2024-05-19 06:44 | XMS REPORT | Continuity of Care Document ---
Author Name Unknown Address [address] [facility] [address] th[address] Address [address] [facility] [address] [place] [address] Care Team Providers Care Drag Sawyer Name Role Phone Lupis Ibanez Primary Care Physician HARRIET MATTHEWS Attending Clinician Unavailable GILDARDO CHEATHAM Attending Clinician UnavailGILDARDO Craven Attending Clinician UnavailGildardo Craven MD Attending Clinician [phone] Campaigns, Generic Provider Attending Clinician Unavailable Queta Grimaldo Attending Clinician [phone] Queta LONG Attending Clinician Unavailable Queta LONG Admitting Clinician Unavailable Payers Payer Name Policy Type Policy Number Effective Date Expirati on Date Source MEDICARE PART A AND B [id number] 2023 00:00:00 MEDICARE PART A \T\ B [id number] 2023 00:00:00 Allergies, Adverse Reactions, Alerts Allergy Name Allergy Type Status Severity Reaction(s) Onset Date Inactive Date Treating Clinician Comments Source NO KNOWN ALLERGIE S Drug Class Active [facility] Social History Social Habit Start Date Stop Date Quantity Comments Source Sexual orientation U [facility] History of Social function 2023-10-17 00:00:00 2023-10-17 00:00:00 [facility] Sex assigned at 1960 00:00:00 1960 00:00:00 [facility] Smoking Status Start Date Stop Date Source Tobacco smoking consumption unknown [facility] Medications Ordered Medication Name Filled Medication Name Start Date Stop Date Current Medication? Ordering Clinician Indication Dosage Frequency Signature (SIG) Comments Components Source albuterol sulfate HFA 90 mcg/actuati on aerosol inhaler 2023-06- 00:00: 00 Yes 2mcg/ac tuation Robert Colunga telmisartan 20 mg tablet 2023-06 00:00: 00 Yes 1mg Robert Colunga citalopram 40 mg tablet 2023-06 00:00: 00 Yes 1mg Robert Colunga telmisartan 20 mg tablet 2023-06 00:00: 00 Yes 1mg Robert Colunga trazodone 100 mg tablet 2023-06 00:00: 00 Yes 1mg Robert Colunga levothyroxi ne 112 mcg tablet 2023-06 00:00: 00 Yes 1mcg Robert Colunga omeprazole 40 mg capsule,del ayed release 2023-06 00:00: 00 Yes 1mg Robert Colunga citalopram 40 mg tablet 11-09 00:00: 00 Yes mg Robert Colunga trazodone 100 mg tablet 11-09 00:00: 00 Yes mg Robert Colunga levothyroxi ne 112 mcg tablet 11-09 00:00: 00 Yes mcg Robert Colunga omeprazole 40 mg capsule,del ayed release 11-09 00:00: 00 Yes 1mg Robert Colunga gabapentin (NEURONTIN) capsule 200 mg 10-04 02:15: 00 10-04 01:17 :00 No 200mg 200 mg, Oral, ONCE, 1 dose, On 10/04/23 at 2115, Routine [facility] methylpredn isolone sod succ (SOLU-MEDRO L) injection 125 mg 10-04 02:15: 00 10-04 01:10 :00 No 125mg 125 mg, Intramuscu lar, ONCE, 1 dose, On 10/04/23 at 2115, TIFFANY [facility] naproxen (NAPROSYN) tablet 500 mg 10-04 01:15: 00 10-04 00:36 :00 No 500mg 500 mg, Oral, ONCE, 1 dose, On 10/04/23 at 2015, Routine [facility] gabapentin 100 mg capsule 10-04 00:00: 00 Yes mg Robert Colunga HYDROcodone -acetaminop hen (NORCO) 10-325 mg tablet 1 tablet 10-03 23:30: 00 10-03 22:31 :00 No 1{tbl} 1 tablet, Oral, ONCE, 1 dose, On 10/04/23 at 1830, Routine [facility] traMADoL 50 mg tablet 10-03 00:00: 00 Yes [id number] 100mg Take 2 tablets by mouth every 6 (six) hours as needed for Pain (scale 4-6). Indication s: acute pain [facility] naproxen (NAPROSYN) 500 mg tablet 10-03 00:00: 00 Yes [id number] 500mg Take 1 tablet by mouth in the morning and 1 tablet in the evening. Take with meals. [facility] gabapentin (NEURONTIN) 100 mg capsule 10-03 00:00: 00 Yes [id number] 100mg Take 1 capsule by mouth in the morning and 1 capsule at noon and 1 capsule in the evening. [facility] predniSONE 20 mg tablet 10-03 00:00: 00 Yes [id number] 9102 1 PO BID x 4 days [facility] levothyroxi ne 112 mcg tablet 01-20 00:00: 00 Yes mcg Robert Colunga citalopram 40 mg tablet 12-26 00:00: 00 Yes mg Robert Colunga trazodone 100 mg tablet 12-26 00:00: 00 Yes mg Robert Colunga esomeprazol e magnesium 40 mg capsule,del ayed release 12-26 00:00: 00 Yes mg Robert Colunga TAKE 1 TABLET EVERY MORNING. 10-02 00:00: 00 Yes 112 Robert Colunga TAKE 1 CAPSULE ONCE DAILY. 10-02 00:00: 00 08-13 00:00 :00 No 40 Robert Colunga TAKE 1 TABLET DAILY. - 00:00: 00 08-13 00:00 :00 No 40 Robert Colunga TAKE 1 TABLET AT BEDTIME. 10-02 00:00: 00 08-13 00:00 :00 No 100 Robert Colunga TAKE 1 CAPSULE AT BEDTIME. 10-02 00:00: 00 08-13 00:00 :00 No 2 Robert Colunga TAKE 1 CAPSULE BY MOUTH EVERY 12 HOURS FOR 10 DAYS 09-02 00:00: 00 Yes Robert Colunga BROM/PSE/DM SYP 09-02 00:00: 00 Yes Robert Colunga TAKE 10 ML BY MOUTH EVERY 4 TO 6 HOURS NEEDED 07-30 00:00: 00 Yes Robert Colunga TAKE ONE (1) TABLET(S) BY MOUTH ONCE A DAY. 2021-06 00:00: 00 Yes Robert Colunga TAKE ONE (1) TABLET(S) BY MOUTH EVERY SIX HOURS NEEDED FOR NAUSEA. 2021-06 00:00: 00 Yes Robert Colunga TAKE ONE (1) TABLET(S) BY MOUTH ONE TO TWO TIMES A DAY FOR COUGH AND CONGESTION. 2021-06 00:00: 00 Yes Robert Colunga TAKE ONE (1) TABLET(S) BY MOUTH EVERY 8 HOURS WITH FOOD NEEDED FOR PAIN. 2021-06 00:00: 00 Yes Robert Colunga TAKE TWO (2) TABLET(S) BY MOUTH EVERY EIGHT TO TEN HOURS. 2021-06 00:00: 00 Yes Robert Colunga TAKE ONE (1) TABLET(S) BY MOUTH ONCE A DAY. 2021-06 00:00: 00 Yes Robert Colunga TAKE ONE (1) TABLET(S) BY MOUTH ONCE A DAY NEEDED. 2021-06 00:00: 00 Yes Robert Colunga TAKE TWO (2) TABLET(S) BY MOUTH EVERY SIX HOURS NEEDED. 2021-06 00:00: 00 Yes Robert Colunga TAKE ONE (1) TABLET(S) BY MOUTH EVERY SIX TO EIGHT HOURS NEEDED FOR PAIN. 02-27 00:00: 00 Yes Robert Colunga TAKE ONE (1) TABLET(S) BY MOUTH ONCE A DAY. 02-12 00:00: 00 Yes Robert Colunga TAKE ONE (1) CAPSULE BY MOUTH DAILY; TAKE FIRST THING IN THE MORNING ON AN EMPTY STOMACH , NOTHING TO EAT OR DRINK FOR 30-60 MINS. 02-05 00:00: 00 Yes Robert Colunga Dose Unknown - 00:00: 00 Yes Robert Colunga Dose Unknown 08-02 00:00: 00 Yes Robert Colunga Dose Unknown 08-02 00:00: 00 Yes Robert Colunga Dose Unknown - 00:00: 00 Yes Robert Colunga citalopram 40 mg tablet 2- 00:00: 00 Yes 1mg Robert Colunga trazodone 100 mg tablet 2- 00:00: 00 Yes 1mg Robert Colunga levothyroxi ne 112 mcg tablet 2- 00:00: 00 Yes 1mcg Robert Colunga esomeprazol e magnesium 40 mg capsule,del ayed release 2-25 00:00: 00 Yes 1mg Robert Coulnga Minipress 2 mg capsule 2-25 00:00: 00 Yes 1mg Robert Colunga citalopram 40 mg tablet -12 00:00: 00 Yes 1mg Robert Colunga trazodone 100 mg tablet -12 00:00: 00 Yes 1mg Robert Colunga levothyroxi ne 112 mcg tablet - 00:00: 00 Yes 1mcg Robert Colunga omeprazole 40 mg capsule,del ayed release 1-12 00:00: 00 Yes 1mg Robert Colunga Minipress 2 mg capsule 1-12 00:00: 00 Yes 1mg Robert Colunga Augmentin 875 mg-125 mg tablet 2020-06- 00:00: 00 Yes 1mg Robert Colunga Bromfed DM 2 mg-30 mg-10 mg/5 mL oral syrup 2020-06- 00:00: 00 Yes 10mg/5 mL Robert Colunga citalopram 40 mg tablet 2020-06- 00:00: 00 Yes 1mg Robert Colunga trazodone 100 mg tablet 2020-06 00:00: 00 Yes 1mg Robert Colunga levothyroxi ne 112 mcg tablet 2020-06 00:00: 00 Yes 1mcg Robert Colunga omeprazole 40 mg capsule,del ayed release 2020-06 00:00: 00 Yes 1mg Robert Colunga Minipress 2 mg capsule 2020-06 00:00: 00 Yes 1mg Robert Colunga citalopram 40 mg tablet 02-22 00:00: 00 Yes 1mg Robert Colunga trazodone 100 mg tablet 02-22 00:00: 00 Yes 1mg Robert Colunga levothyroxi ne 112 mcg tablet 02-22 00:00: 00 Yes 1mcg Robert Colunga omeprazole 40 mg capsule,del ayed release 02-22 00:00: 00 Yes 1mg Robert Colunga Minipress 2 mg capsule 02-22 00:00: 00 Yes 1mg Robert Colunga citalopram 40 mg tablet - 00:00: 00 Yes 1mg Robert Colunga trazodone 100 mg tablet - 00:00: 00 Yes 1mg Robert Colunga omeprazole 40 mg capsule,del ayed release - 00:00: 00 Yes 1mg Robert Colunga Minipress 2 mg capsule 0 - 00:00: 00 Yes 1mg Robert Colunga levothyroxi ne 112 mcg tablet -18 00:00: 00 Yes 1mcg Robert Colunga levothyroxi ne 112 mcg tablet 0 5-10 00:00: 00 Yes 1mcg Robert Colunga Minipress 2 mg capsule 5-06 00:00: 00 Yes 1mg Robert Colunga citalopram 40 mg tablet 0 - 00:00: 00 Yes 1mg Robert Colunga cephalexin 500 mg tablet 0 - 00:00: 00 Yes 1mg Robert Colunga trazodone 100 mg tablet 0 5- 00:00: 00 Yes 1mg Robert Colunga omeprazole 40 mg capsule,del ayed release 0 5- 00:00: 00 Yes 1mg Robert Colunga citalopram 40 mg tablet 0 - 00:00: 00 Yes 1mg Robert Colunga trazodone 100 mg tablet 0 - 00:00: 00 Yes 1mg Robert Colunga omeprazole 40 mg capsule,del ayed release - 00:00: 00 Yes 1mg Robert Colunga Minipress 2 mg capsule 0 - 00:00: 00 Yes 1mg Robert Colunga citalopram 40 mg tablet 0 3-12 00:00: 00 Yes 1mg Robert Colunga trazodone 100 mg tablet 0 3-12 00:00: 00 Yes 1mg Robert Colunga omeprazole 40 mg capsule,del ayed release 3-12 00:00: 00 Yes 1mg Robert Colunga Minipress 2 mg capsule 0 3-12 00:00: 00 Yes 1mg Robert Colunga Bromfed DM 2 mg-30 mg-10 mg/5 mL oral syrup 0 2-04 00:00: 00 Yes 10mg/5 mL Robert Colunga levothyroxi ne 100 mcg tablet 2019-06 2-14 00:00: 00 Yes 1mcg Robert Colunga citalopram 40 mg tablet 2019-06 2-10 00:00: 00 Yes 1mg Robert Colunga trazodone 100 mg tablet 2019-06 2-10 00:00: 00 Yes 1mg Robert Colunga levothyroxi ne 125 mcg tablet 2019-06 2-10 00:00: 00 Yes 1mcg Robert Colunga omeprazole 40 mg capsule,del ayed release 2019-06 2-10 00:00: 00 Yes 1mg Robert Colunga Minipress 2 mg capsule 2020-1 2-10 00:00: 00 Yes 1mg Robert Colunga trazodone 100 mg tablet 2019-1 0-07 00:00: 00 Yes 1mg Robert Colunga Minipress 2 mg capsule 2019-1 0-07 00:00: 00 Yes 1mg Robert Colunga citalopram 40 mg tablet 2019-0 8-27 00:00: 00 Yes 1mg Robert Colunga omeprazole 40 mg capsule,del ayed release 2019-0 8-27 00:00: 00 Yes 1mg Robert Colunga levothyroxi ne 125 mcg tablet 2019-0 8-10 00:00: 00 Yes 1mcg Robert Colunga trazodone 100 mg tablet 2019-0 8-06 00:00: 00 Yes 1mg Robert Colunga Minipress 2 mg capsule 2019-0 8-06 00:00: 00 Yes 1mg Robert Colunga levothyroxi ne 125 mcg tablet 2019-0 8-05 00:00: 00 Yes 1mcg Robert Colunga Minipress 1 mg capsule 2019-0 7-31 00:00: 00 Yes 1mg Robert Colunga citalopram 40 mg tablet 2019-0 7-30 00:00: 00 Yes 1mg Robert Colunga trazodone 50 mg tablet 2019-0 7-30 00:00: 00 Yes 1mg Robert Colunga levothyroxi ne 137 mcg tablet 2019-0 7-30 00:00: 00 Yes 1mcg Robert Colunga omeprazole 40 mg capsule,del ayed release 2019-0 7-30 00:00: 00 Yes 1mg Robert Colunga temazepam 30 mg capsule 2019-0 7-30 00:00: 00 Yes 2mg Robert Colunga Immunizations Ordered Immunization Name Filled Immunization Name Date Status Comments Source influenza, seasonal vaccine, quadrivalent, adjuvanted, .5mL dose, preservative-free influenza, seasonal vaccine, quadrivalent, adjuvanted, .5mL dose, preservative-free 2024-04-15 00:00:00 Completed Robert Colunga Vital Signs Vital Name Observation Time Observation Value Comments [place] Body height 2023-10-17 13:11:00 170.2 cm [facility] Body weight 2023-10-17 13:11:00 72.122 kg [facility] BMI 2023-10-17 13:11:00 24.90 kg/m2 [facility] Systolic blood pressure 2023-10-05 01:38:00 185 mm[Hg] [place] o [facility] Diastolic blood pressure 2023-10-05 01:38:00 91 mm[Hg] [facility] Heart rate 2023-10-05 01:38:00 76 /min [facility] Body temperature 2023-10-05 01:38:00 37.06 Sarahy [facility] Respiratory rate 2023-10-05 01:38:00 16 /min [facility] Oxygen saturation in Arterial blood by Pulse oximetry 2023-10-05 01:38:00 100 /min [facility] Body height 2023-10-04 22:11:00 170.2 cm [facility] Body weight 2023-10-04 22:11:00 68.947 kg [facility] BMI 2023-10-04 22:11:00 23.81 kg/m2 [facility] BP Systolic 2024-05-14 10:48:00 113 mm[Hg] Step hen F Keanu BP Diastolic 2024-05-14 10:48:00 62 mm[Hg] Tesfaye phen F Keanu Weight Measured 2024-05-14 10:48:00 158.00 pounds Robert F Keanu Height Measured 2024-05-14 10:48:00 67.00 inches Robert F Keanu Body Temperature 2024-05-14 10:48:00 98.20 degrees Robert F Keanu Heart Rate 2024-05-14 10:48:00 92.00 /min Naomy en F Keanu Respiratory Rate 2024-05-14 10:48:00 18.00 /min Robert F Keanu BP Systolic 2024-04-15 10:52:00 154 mm[Hg] Step hen F Keanu BP Diastolic 2024-04-15 10:52:00 99 mm[Hg] Tesfaye phen F Keanu Weight Measured 2024-04-15 10:52:00 155.60 pounds Robert F Keanu Height Measured 2024-04-15 10:52:00 67.00 inches Robert F Keanu Body Temperature 2024-04-15 10:52:00 Robert Colunga Heart Rate 2024-04-15 10:52:00 86.00 /min Naomy en Tl Colunga Respiratory Rate 2024-04-15 10:52:00 18.00 /min Robert Colunga Respiratory Rate 2023-11-03 13:38:00 Robert Colunga BP Systolic 2023-11-03 13:38:00 193 mm[Hg] Step hen F Keanu BP Diastolic 2023-11-03 13:38:00 109 mm[Hg] Tesfaye phen Tl Colunga Weight Measured 2023-11-03 13:38:00 154.40 pounds Robert Colunga Height Measured 2023-11-03 13:38:00 67.00 inches Robert Colunga Body Temperature 2023-11-03 13:38:00 98.10 degrees Robert Colunga Heart Rate 2023-11-03 13:38:00 90.00 /min Naomy Colunga Body height 2023-10-17 13:11:00 170.2 cm [facility] Body weight 2023-10-17 13:11:00 72.122 kg [facility] BMI 2023-10-17 13:11:00 24.90 kg/m2 [facility] Systolic blood pressure 2023-10-05 01:38:00 185 mm[Hg] [facility] Diastolic blood pressure 2023-10-05 01:38:00 91 mm[Hg] [facility] Heart rate 2023-10-05 01:38:00 76 /min [facility] Body temperature 2023-10-05 01:38:00 37.06 Sarahy [facility] Respiratory rate 2023-10-05 01:38:00 16 /min [facility] Oxygen saturation in Arterial blood by Pulse oximetry 2023-10-05 01:38:00 100 /min [facility] BP Systolic 2022-10-02 13:23:00 153 mm[Hg] Step hen Tl Colunga BP Diastolic 2022-10-02 13:23:00 92 mm[Hg] Tesfaye phen Tl Colunga Weight Measured 2022-10-02 13:23:00 192.60 pounds Robert Colunga Height Measured 2022-10-02 13:23:00 67.00 inches Robert F Keanu Body Temperature 2022-10-02 13:23:00 98.30 degrees Robert F Keanu Heart Rate 2022-10-02 13:23:00 102.00 /min Step hen F Keanu Respiratory Rate 2022-10-02 13:23:00 Robert F Keanu BP Systolic 2021-07-27 14:16:00 156 mm[Hg] Step hen F Keanu BP Diastolic 2021-07-27 14:16:00 78 mm[Hg] Tesfaye phen F Keanu Weight Measured 2021-07-27 14:16:00 196.40 pounds Robert F Keanu Height Measured 2021-07-27 14:16:00 67.00 inches Robert F Keanu Body Temperature 2021-07-27 14:16:00 97.30 degrees Robert F Keanu Heart Rate 2021-07-27 14:16:00 70.00 /min Naomy en F Keanu Respiratory Rate 2021-07-27 14:16:00 Robert F Keanu BP Systolic 2021-02-22 09:29:00 159 mm[Hg] Step hen F Keanu BP Diastolic 2021-02-22 09:29:00 83 mm[Hg] Tesfaye phen F Keanu Weight Measured 2021-02-22 09:29:00 198.80 pounds Robert F Keanu Height Measured 2021-02-22 09:29:00 67.00 inches Robert F Keanu Body Temperature 2021-02-22 09:29:00 98.70 degrees Robert F Keanu Heart Rate 2021-02-22 09:29:00 86.00 /min Naomy en F Keanu Respiratory Rate 2021-02-22 09:29:00 17.00 /min Robert F Keanu BP Systolic 2020-10-05 11:31:00 161 mm[Hg] Step hen F Keanu BP Diastolic 2020-10-05 11:31:00 89 mm[Hg] Tesfaye phen F Keanu Weight Measured 2020-10-05 11:31:00 196.00 pounds Robert F Keanu Height Measured 2020-10-05 11:31:00 67.00 inches Robert F Keanu Body Temperature 2020-10-05 11:31:00 98.90 degrees Robert F Keanu Heart Rate 2020-10-05 11:31:00 80.00 /min Naomy en F Keanu Respiratory Rate 2020-10-05 11:31:00 17.00 /min Robert F Keanu BP Systolic 2020-05-11 15:46:00 127 mm[Hg] Step hen F Keanu BP Diastolic 2020-05-11 15:46:00 77 mm[Hg] Tesfaye phen F Keanu Weight Measured 2020-05-11 15:46:00 196.40 pounds Robert F Keanu Height Measured 2020-05-11 15:46:00 67.00 inches Robert F Keanu Body Temperature 2020-05-11 15:46:00 98.60 degrees Robert F Keanu Heart Rate 2020-05-11 15:46:00 82.00 /min Naomy en F Keanu Respiratory Rate 2020-05-11 15:46:00 18.00 /min Robert F Keanu BP Systolic 2019-12-30 17:25:00 131 mm[Hg] Step hen F Keanu BP Diastolic 2019-12-30 17:25:00 79 mm[Hg] Tesfaye phen F Keanu Weight Measured 2019-12-30 17:25:00 190.40 pounds Robert F Keanu Height Measured 2019-12-30 17:25:00 67.00 inches Robert F Keanu Body Temperature 2019-12-30 17:25:00 98.30 degrees Robert F Keanu Heart Rate 2019-12-30 17:25:00 88.00 /min Naomy en F Keanu Respiratory Rate 2019-12-30 17:25:00 16.00 /min Robertedel Colunga Procedures Procedure Date / Time Performed Performing Clinicia n Source XR LUMBAR SPINE 2 VW 2023-10-05 00:38:39 Queta Long [facility] XR LUMBAR SPINE 2 VW 2023-10-05 00:38:39 Queta Long [facility] XR ANKLE 3+ VW RIGHT 2023-10-04 22:56:42 Queta Long [facility] XR HIPS 2 VW RIGHT 2023-10-04 22:56:42 Queta Long [facility] XR HUMERUS 2 VW LEFT 2023-10-04 22:56:42 Queta Long [facility] XR SHOULDER 2+ VW LEFT 2023-10-04 22:56:42 Queta Long [facility] XR WRIST 3+ VW LEFT 2023-10-04 22:56:42 Queta Long [facility] XR SHOULDER 2+ VW LEFT 2023-10-04 22:56:42 Queta Long [facility] XR HUMERUS 2 VW LEFT 2023-10-04 22:56:42 Queta Long [facility] XR WRIST 3+ VW LEFT 2023-10-04 22:56:42 Queta Long [facility] XR ANKLE 3+ VW RIGHT 2023-10-04 22:56:42 Queta Long [facility] XR HIPS 2 VW RIGHT 2023-10-04 22:56:42 Queta Long [facility] Encounters Start Date/Time End Date/Time Encounter Type Admission Type Attending [facility] Care Department Encounter ID Source 2024-06-09 12:30:00 2024-06-09 12:30:00 Outpatient HARRIET MATTHEWS [facility] [id number] [facility] 2024-05-14 10:39:45 2024-05-14 10:39:45 Outpatient SFA [id number] [id number] Robert Colunga 2024-05-14 00:00:00 2024-05-14 00:00:00 Outpatient Visit SFA [id number] Robert Colunga 2024-04-15 10:47:41 2024-04-15 10:47:41 Outpatient SFA [id number] [id number] Robert Colunga 2024-04-15 00:00:00 2024-04-15 00:00:00 Outpatient Visit SFA [id number] Robert Colunga 2023-11-03 13:31:56 2023-11-03 13:31:56 Outpatient SFA [id number] [id number] Robert Colunga 2023-11-03 00:00:00 2023-11-03 00:00:00 Outpatient Visit SFA [id number] Robert Colunga 2023-10-17 08:15:00 2023-10-17 09:56:33 Outpatient R GILDARDO CHEATHAM [facility] [id number] [facility] 2023-10-17 08:15:00 2023-10-17 09:56:33 [facility] [id number] [facility] 2023-10-17 00:00:00 2023-10-17 00:00:00 Travel 1.2.840.1 [id number] [id number] [id number] [facility] 2023-10-15 00:00:00 2023-10-15 11:00:01 Letter (Out) Campaigns, Generic Provider 1.2.840.1 [id number] [facility] 2023-10-04 17:13:00 2023-10-04 20:42:00 Emergency Queta Long 1.2.840.1 [id number] [facility] 2023-10-04 17:13:00 2023-10-04 20:42:00 Emergency X Queta LONG [facility] ERT [id number] [facility] 2023-10-04 00:00:00 2023-10-04 00:00:00 Travel 1.2.840.1 [id number] .[id number] [id number] [id number] [id number] [facility] 2022-10-02 13:18:36 2022-10-02 13:18:36 Outpatient [facility] [id number] Robert Colunga Results Test Description Test Time Test Comments Results Result Co mments Source Robert ColungaLIPID [id number] 00:00:00* Test Item Value Reference Range Interpretation Comme nts CHOLESTEROL (test code = 2210) 226 MG/DL TRIGLYCERIDES (test code = 2232) 222 MG/DL HDL CHOLESTEROL (test code = 2220) 63 MG/DL CALC LDL CHOL (test code = 2237) 127 MG/DL RISK RATIO LDL/HDL (test cod e = 2238) 2.02 RATIO Robert ColungaTSH, THIRD [id number] 00:00:00* Test Item Value Reference Range Interpretation Comme nts TSH, THIRD GENERATION (test code = 2821) 69.400 UIU/ML Robert ColungaHIV 1/2 4TH GEN, RFLX [id number] 00:00:00* Test Item Value Reference Range Interpretation Comme nts HIV 1/2 4TH GEN, RFLX CONF ( test code = 3514) NON-REACTIVE Robert ColungaCOMPREHENSIVE METABOLIC [id number] 00:00:00* Test Item Value Reference Range Interpretation Comme nts GLUCOSE (test code = 2217) 84 MG/DL BUN (test code = 2208) 17 MG/DL CREATININE (test code = 2214) 1.19 MG/DL eGFR (2020 CKD-EPI) (test co de = 26090) 51 ML/MIN/1.73 CALC BUN/CREAT (test code = 2235) 14 RATIO SODIUM (test code = 2231) 139 MEQ/L POTASSIUM (test code = 2228) 4.6 MEQ/L CHLORIDE (test code = 2215) 104 MEQ/L CARBON DIOXIDE (test code = 2206) 22 MEQ/L CALCIUM (test code = 2209) 9.4 MG/DL PROTEIN, TOTAL (test code = 2229) 7.1 G/DL ALBUMIN (test code = 2201) 4.2 G/DL CALC GLOBULIN (test code = 2240) 2.9 G/DL CALC A/G RATIO (test code = 2234) 1.4 RATIO BILIRUBIN, TOTAL (test code = 2207) 0.2 MG/DL ALKALINE PHOSPHATASE (test code = 2204) 121 U/L AST (test code = 2218) 18 U/L ALT (test code = 2219) 10 U/L Robert ColungaH REFLEX TO FREE [id number] 00:00:00* Test Item Value Reference Range Interpretation Comme nts TSH REFLEX TO FREE T4 (test code = 2834) 35.200 UIU/ML Robert ColungaFR T4 (THYROXINE) [REFLEX]2023-11-05 00:00:00* Test Item Value Reference Range Interpretation Comme nts FREE T4 (THYROXINE) (test co de = 2823) 0.93 NG/DL Robert ColungaCOMPREHENSIVE METABOLIC [id number] 00:00:00* Test Item Value Reference Range Interpretation Comme nts GLUCOSE (test code = 2217) 84 MG/DL BUN (test code = 2208) 17 MG/DL CREATININE (test code = 2214) 1.19 MG/DL eGFR (2020 CKD-EPI) (test co de = 95389) 51 ML/MIN/1.73 CALC BUN/CREAT (test code = 2235) 14 RATIO SODIUM (test code = 2231) 139 MEQ/L POTASSIUM (test code = 2228) 4.6 MEQ/L CHLORIDE (test code = 2215) 104 MEQ/L CARBON DIOXIDE (test code = 2206) 22 MEQ/L CALCIUM (test code = 2209) 9.4 MG/DL PROTEIN, TOTAL (test code = 2229) 7.1 G/DL ALBUMIN (test code = 2201) 4.2 G/DL CALC GLOBULIN (test code = 2240) 2.9 G/DL CALC A/G RATIO (test code = 2234) 1.4 RATIO BILIRUBIN, TOTAL (test code = 2207) 0.2 MG/DL ALKALINE PHOSPHATASE (test code = 2204) 121 U/L AST (test code = 2218) 18 U/L ALT (test code = 2219) 10 U/L Robert ColungaTSH REFLEX TO FREE [id number] 00:00:00* Test Item Value Reference Range Interpretation Comme nts TSH REFLEX TO FREE T4 (test code = 2834) 35.200 UIU/ML Robert ColungaFREE T4 (THYROXINE) [REFLEX]2023-11-05 00:00:00* Test Item Value Reference Range Interpretation Comme nts FREE T4 (THYROXINE) (test co de = 2823) 0.93 NG/DL Robert ColungaCOMPREHENSIVE METABOLIC [id number] 00:00:00* Test Item Value Reference Range Interpretation Comme nts GLUCOSE (test code = 2217) 84 MG/DL BUN (test code = 2208) 17 MG/DL CREATININE (test code = 2214) 1.19 MG/DL eGFR (2020 CKD-EPI) (test co de = 72223) 51 ML/MIN/1.73 CALC BUN/CREAT (test code = 2235) 14 RATIO SODIUM (test code = 2231) 139 MEQ/L POTASSIUM (test code = 2228) 4.6 MEQ/L CHLORIDE (test code = 2215) 104 MEQ/L CARBON DIOXIDE (test code = 2206) 22 MEQ/L CALCIUM (test code = 2209) 9.4 MG/DL PROTEIN, TOTAL (test code = 2229) 7.1 G/DL ALBUMIN (test code = 2201) 4.2 G/DL CALC GLOBULIN (test code = 2240) 2.9 G/DL CALC A/G RATIO (test code = 2234) 1.4 RATIO BILIRUBIN, TOTAL (test code = 2207) 0.2 MG/DL ALKALINE PHOSPHATASE (test code = 2204) 121 U/L AST (test code = 2218) 18 U/L ALT (test code = 2219) 10 U/L Robert ColungaTSH REFLEX TO FREE [id number] 00:00:00* Test Item Value Reference Range Interpretation Comme nts TSH REFLEX TO FREE T4 (test code = 2834) 35.200 UIU/ML Robert ColungaFREE T4 (THYROXINE) [REFLEX]2023-11-05 00:00:00* Test Item Value Reference Range Interpretation Comme nts FREE T4 (THYROXINE) (test co de = 2823) 0.93 NG/DL Robert ColungaXR LUMBAR SPINE 2 [id number] 01:26:37ORDERING PHYSICIAN: Queta LONG. CLINICAL HISTORY: low back pain . . TECHNIQUE: 4 views of the harrison mbar spine TECHNICAL QUALITY: Adequate COMPARISON: None [facility] [id number] 23:34:19EXAM: XR HUMERUS 2 VW LEFT, EXAM: XR [...] An ulna styloid process avulsionfracture nonunion is present.[facility] VW [id number] 23:34:19EXAM: XR HUMERUS 2 VW LEFT, EXAM: XR WRIST 3+ VW LEFT, EXAM: XR SHOULDER 2+ VW LEFT HISTORY: fall COMPARISON: None. FINDINGS: Radiographs of the left shoulder and humerus demonstrate a surgical neckfracture with mild varus angulation with medial cortical craniocaudaloverriding measuring 1.3 cm. Moderate joint space narrowing, subchondralsclerosis and marginal osteophyte formation involve the acrom ioclavicularjoint. Calcified plaque outlines the aortic arch. Osteopenia is present. Diffuse osteopenia is noted. Imaging of the wrist demonstrates a remote impaction fracture through thedistal radial metaphysis with dorsal tilt of the distal radial fracturefragment with resultant ulnar plus variance. Moderate joint spacenarrowing, subchondral sclerosis and marginal osteophyte formation involvethe radiocarpal and thumb CMC joint. An ulna styloid process avulsionfracture nonunion is present.[facility]+ VW [id number] 23:34:19EXAM: XR HUMERUS 2 VW LEFT, EXAM: XR [...] An ulna styloid process avulsionfracture nonunion is present.[facility] ANKLE 3+ VW [id number] 23:31:59EXAM: XR ANKLE 3+ VW RIGHT, EXAM: XR HIPS 2 VW RIGHT HISTORY: fall COMPARISON: None. FINDINGS: Images of the right ankle demonstrate no acute fracture or dislocation. Theankle mortise is congruent. Ca lcaneal spurs are visualized. Radiographs of the right hip demonstrate no acute fracture or dislocation.Femoral acetabular marginal osteophyte formation is seen. Enthesophytes are visualized at the iliac crest and greater trochanter. No soft tissue abnormality is seen. Diffuse osteopenia is noted.[facility] H[facility] 2 VW [id number] 23:31:59EXAM: XR ANKLE 3+ VW RIGHT, EXAM: XR [...] tissue abnormality is seen. Diffuse osteopenia is noted.[facility] T4 [id number] 05:24:02* Test Item Value Reference Range Interpretation Comme nts TSH, THIRD GENERATION (test code = 2821) 16.100 UIU/ML 0.400-4.100 H FREE T4 (THYROXINE) (test code = 2823) 1.11 NG/DL 0.80-1.90 [facility] has i mportant pathology staff changes effective 07/31/2022. New pathology staff will provide uninterrupted, excellent patient care and clinical consultation. See URL: [email or web address]. UNLESS OTHERWISE INDICATED, ALL TESTING PERFORMED AT [facility] [address] [place] [id number] EXPORT AGENT: IRON WYNNE M.D. CLIA NUMBER [id number] [facility] [place]. [id number] TSH + FREE T4 [id number] 00:00:00* Test Item Value Reference Range Interpretation Comme nts TSH, THIRD GENERATION (test code = 2821) 16.100 UIU/ML FREE T4 (THYROXINE) (test co de = 2823) 1.11 NG/DL Robert Boothe AustinTSH + FREE T4 [id number] 00:00:00* Test Item Value Reference Range Interpretation Comme nts TSH, THIRD GENERATION (test code = 2821) 16.100 UIU/ML FREE T4 (THYROXINE) (test co de = 2823) 1.11 NG/DL Robert ColungaTSH + FREE T4 [id number] 00:00:00* Test Item Value Reference Range Interpretation Comme nts TSH, THIRD GENERATION (test code = 2821) 16.100 UIU/ML FREE T4 (THYROXINE) (test co de = 2823) 1.11 NG/DL Robert ColungaLIPID [id number] 06:25:41* Test Item Value Reference Range Interpretation [...] SPECIMENS. FOR MOREINFORMATION, SEE CLIENT ANNOUNCEMENT AT [email or web address] RISK RATIO LDL/HDL (test code = 2238) 1.82 RATIO <3.22 COMPREHENSIVE METABOLIC [id number] 06:25:41* Test Item Value Reference Range Interpretation [...] G/DL 3.5-5.2 CALC GLOBULIN (test code = 2239) 3.1 G/DL 1.9-3.7 CALC A/G RATIO (test code = 2233) 1.5 RATIO 1.0-2.6 BILIRUBIN, TOTAL (test code = 2206) 0.3 MG/DL See_Comment [Automated me ssage] The system which generated this result transmitted reference range: <=1.2. The reference range was not used to interpret this result as normal/abnormal. ALKALINE PHOSPHATASE (test code = 2203) 98 U/L 40-140 AST (test code = 2217) 18 U/L 9-40 ALT (test code = 9) 10 U/L 5-40 UNLESS OTHERWISE INDICATED, ALL TESTING PERFORMED [facility] [address] [place] [id number] EXPORT AGENT: CHELI XIONG M.D. [place] NUMBER [id number] [facility] [place]. [id number] HEMOGLOBIN [id number] 03:23:08* Test Item Value Reference Range Interpretation Comme [facility] HEMOGLOBIN A1c (test code = 49661) 5.3 % 4.2-5.6 HEMOGLOBIN [id number] 00:00:00* Test Item Value Reference Range Interpretation Comme nts HEMOGLOBIN A1c (test code = 96541) 5.3 % Robert ColungaLIPID [id number] 00:00:00* Test Item Value Reference Range Interpretation Comme nts CHOLESTEROL (test code = 2210) 229 MG/DL TRIGLYCERIDES (test code = 2232) 122 MG/DL HDL CHOLESTEROL (test code = 2220) 73 MG/DL CALC LDL CHOL (test code = 2237) 133 MG/DL RISK RATIO LDL/HDL (test cod e = 2238) 1.82 RATIO Robert ColungaCOMPREHENSIVE METABOLIC [id number] 00:00:00* Test Item Value Reference Range Interpretation Comme nts GLUCOSE (test code = 2217) 96 MG/DL BUN (test code = 2208) 11 MG/DL CREATININE (test code = 2214) 0.87 MG/DL eGFR (2020 CKD-EPI) (test co de = 67466) 75 ML/MIN/1.73 CALC BUN/CREAT (test code = 2235) 13 RATIO SODIUM (test code = 2231) 142 MEQ/L POTASSIUM (test code = 2228) 4.6 MEQ/L CHLORIDE (test code = 2215) 104 MEQ/L CARBON DIOXIDE (test code = 2206) 24 MEQ/L CALCIUM (test code = 2209) 9.4 MG/DL PROTEIN, TOTAL (test code = 2229) 7.6 G/DL ALBUMIN (test code = 2201) 4.5 G/DL CALC GLOBULIN (test code = 2240) 3.1 G/DL CALC A/G RATIO (test code = 2234) 1.5 RATIO BILIRUBIN, TOTAL (test code = 2207) 0.3 MG/DL ALKALINE PHOSPHATASE (test code = 2204) 98 U/L AST (test code = 2218) 18 U/L ALT (test code = 2219) 10 U/L Robert ColungaHEMOGLOBIN [id number] 00:00:00* Test Item Value Reference Range Interpretation Comme nts HEMOGLOBIN A1c (test code = 80032) 5.3 % Robert ColungaLIPID [id number] 00:00:00* Test Item Value Reference Range Interpretation Comme nts CHOLESTEROL (test code = 2210) 229 MG/DL TRIGLYCERIDES (test code = 2232) 122 MG/DL HDL CHOLESTEROL (test code = 2220) 73 MG/DL CALC LDL CHOL (test code = 2237) 133 MG/DL RISK RATIO LDL/HDL (test cod e = 2238) 1.82 RATIO Robert ColungaCOMPREHENSIVE METABOLIC [id number] 00:00:00* Test Item Value Reference Range Interpretation Comme nts GLUCOSE (test code = 2217) 96 MG/DL BUN (test code = 2208) 11 MG/DL CREATININE (test code = 2214) 0.87 MG/DL eGFR (2020 CKD-EPI) (test co de = 92053) 75 ML/MIN/1.73 CALC BUN/CREAT (test code = 2235) 13 RATIO SODIUM (test code = 2231) 142 MEQ/L POTASSIUM (test code = 2228) 4.6 MEQ/L CHLORIDE (test code = 2215) 104 MEQ/L CARBON DIOXIDE (test code = 2206) 24 MEQ/L CALCIUM (test code = 2209) 9.4 MG/DL PROTEIN, TOTAL (test code = 2229) 7.6 G/DL ALBUMIN (test code = 2201) 4.5 G/DL CALC GLOBULIN (test code = 2240) 3.1 G/DL CALC A/G RATIO (test code = 2234) 1.5 RATIO BILIRUBIN, TOTAL (test code = 2207) 0.3 MG/DL ALKALINE PHOSPHATASE (test code = 2204) 98 U/L AST (test code = 2218) 18 U/L ALT (test code = 2219) 10 U/L Robert ColungaHEMOGLOBIN [id number] 00:00:00* Test Item Value Reference Range Interpretation Comme nts HEMOGLOBIN A1c (test code = 01641) 5.3 % Robert Boothe AustinLIPID [id number] 00:00:00* Test Item Value Reference Range Interpretation Comme nts CHOLESTEROL (test code = 2210) 229 MG/DL TRIGLYCERIDES (test code = 2232) 122 MG/DL HDL CHOLESTEROL (test code = 2220) 73 MG/DL CALC LDL CHOL (test code = 2237) 133 MG/DL RISK RATIO LDL/HDL (test cod e = 2238) 1.82 RATIO Robert ColungaCOMPREHENSIVE METABOLIC [id number] 00:00:00* Test Item Value Reference Range Interpretation Comme nts GLUCOSE (test code = 2217) 96 MG/DL BUN (test code = 2208) 11 MG/DL CREATININE (test code = 2214) 0.87 MG/DL eGFR (2020 CKD-EPI) (test co de = 85584) 75 ML/MIN/1.73 CALC BUN/CREAT (test code = 2235) 13 RATIO SODIUM (test code = 2231) 142 MEQ/L POTASSIUM (test code = 2228) 4.6 MEQ/L CHLORIDE (test code = 2215) 104 MEQ/L CARBON DIOXIDE (test code = 2206) 24 MEQ/L CALCIUM (test code = 2209) 9.4 MG/DL PROTEIN, TOTAL (test code = 2229) 7.6 G/DL ALBUMIN (test code = 2201) 4.5 G/DL CALC GLOBULIN (test code = 2240) 3.1 G/DL CALC A/G RATIO (test code = 2234) 1.5 RATIO BILIRUBIN, TOTAL (test code = 2207) 0.3 MG/DL ALKALINE PHOSPHATASE (test code = 2204) 98 U/L AST (test code = 2218) 18 U/L ALT (test code = 2219) 10 U/L Robert [id number] 00:00:00* Test Item Value Reference Range Interpretation Comme nts TSH, THIRD GENERATION (test code = 2821) 1.960 UIU/ML Robert [id number] 00:00:00* Test Item Value Reference Range Interpretation Comme nts TSH, THIRD GENERATION (test code = 2821) 1.960 UIU/ML Robert [id number] 00:00:00* Test Item Value Reference Range Interpretation Comme nts TSH, THIRD GENERATION (test code = 2821) 1.960 UIU/ML Robret ColungaCULTURE, [id number] 00:00:00* Test Item Value Reference Range Interpretation Comme nts CULTURE, URINE (test code = 71092) SPECIMEN NUMBER: [id number] Robert ColungaCULTURE, [id number] 00:00:00* Test Item Value Reference Range Interpretation Comme nts CULTURE, URINE (test code = 60135) SPECIMEN NUMBER: [id number] Robert ColungaCULTURE, [id number] 00:00:00* Test Item Value Reference Range Interpretation Comme nts CULTURE, URINE (test code = 81603) SPECIMEN NUMBER: [id number] Robert [id number] 00:00:00* Test Item Value Reference Range Interpretation Comme nts TSH, THIRD GENERATION (test code = 2821) 4.750 UIU/ML Robert [id number] 00:00:00* Test Item Value Reference Range Interpretation Comme nts TSH, THIRD GENERATION (test code = 2821) 4.750 UIU/ML Robert [id number] 00:00:00* Test Item Value Reference Range Interpretation Comme nts TSH, THIRD GENERATION (test code = 2821) 4.750 UIU/ML Robert Boothe [id number] (COVID-19) by RT-PCR (HIGH RISK)2020-07-07 00:00:00* Test Item Value Reference Range Interpretation Comme nts SARS-CoV-2 INTERPRETATION (t est code = 09060) NEGATIVE SOURCE (test code = 36969) NOT SPECIFIED Robert Boothe [id number] (COVID-19) by RT-PCR (HIGH RISK)2020-07-07 00:00:00* Test Item Value Reference Range Interpretation Comme nts SARS-CoV-2 INTERPRETATION (t est code = 39356) NEGATIVE SOURCE (test code = 62468) NOT SPECIFIED Robert Boothe [id number] (COVID-19) by RT-PCR (HIGH RISK)2020-07-07 00:00:00* Test Item Value Reference Range Interpretation Comme nts SARS-CoV-2 INTERPRETATION (t est code = 84436) NEGATIVE SOURCE (test code = 75700) NOT SPECIFIED Robert Boothe AustinTHYROID II PROFILE (T3U, T4, T7, TSH)2020-05-13 00:00:00* Test Item Value Reference Range Interpretation Comme nts T-UPTAKE (test code = 2817) 30.2 % THYROX. BIND. CAPAC. (test c ode = 28903) 1.1 T4 (THYROXINE) (test code = 2819) 8.8 UG/DL CORRECTED T4 (FTI) (test cod e = 2820) 8.0 UG/DL TSH, THIRD GENERATION (test code = 2821) 0.063 UIU/ML Robert Boothe AustinTHYROID II PROFILE (T3U, T4, T7, TSH)2020-05-13 00:00:00* Test Item Value Reference Range Interpretation Comme nts T-UPTAKE (test code = 2817) 30.2 % THYROX. BIND. CAPAC. (test c ode = 31096) 1.1 T4 (THYROXINE) (test code = 2819) 8.8 UG/DL CORRECTED T4 (FTI) (test cod e = 2820) 8.0 UG/DL TSH, THIRD GENERATION (test code = 2821) 0.063 UIU/ML Robert ColungaTHYROID II PROFILE (T3U, T4, T7, TSH)2020-05-13 00:00:00* Test Item Value Reference Range Interpretation Comme nts T-UPTAKE (test code = 2817) 30.2 % THYROX. BIND. CAPAC. (test c ode = 91870) 1.1 T4 (THYROXINE) (test code = 2819) 8.8 UG/DL CORRECTED T4 (FTI) (test cod e = 2820) 8.0 UG/DL TSH, THIRD GENERATION (test code = 2821) 0.063 UIU/ML Robert Boothe [id number] 00:00:00* Test Item Value Reference Range Interpretation Comme nts TSH, THIRD GENERATION (test code = 2821) 0.078 UIU/ML Robert ColungaCOMPREHENSIVE METABOLIC [id number] 00:00:00* Test Item Value Reference Range Interpretation Comme nts GLUCOSE (test code = 2217) 92 MG/DL BUN (test code = 2208) 15 MG/DL CREATININE (test code = 2214) 0.84 MG/DL eGFR AMER. (test cod e = 34195) 87 ML/MIN/1.73 eGFR NON- AMER. (test code = 33518) 75 ML/MIN/1.73 CALC BUN/CREAT (test code = 2235) 18 RATIO SODIUM (test code = 2231) 140 MEQ/L POTASSIUM (test code = 2228) 4.2 MEQ/L CHLORIDE (test code = 2215) 105 MEQ/L CARBON DIOXIDE (test code = 2206) 24 MEQ/L CALCIUM (test code = 2209) 9.0 MG/DL PROTEIN, TOTAL (test code = 2229) 7.3 G/DL ALBUMIN (test code = 2201) 4.6 G/DL CALC GLOBULIN (test code = 2240) 2.7 G/DL CALC A/G RATIO (test code = 2234) 1.7 RATIO BILIRUBIN, TOTAL (test code = 2207) 0.2 MG/DL ALKALINE PHOSPHATASE (test code = 2204) 84 U/L AST (test code = 2218) 23 U/L ALT (test code = 2219) 15 U/L Robert Boothe [id number] 00:00:00* Test Item Value Reference Range Interpretation Comme nts TSH, THIRD GENERATION (test code = 2821) 0.078 UIU/ML Robert F BishopCOMPREHENSIVE METABOLIC [id number] 00:00:00* Test Item Value Reference Range Interpretation Comme nts GLUCOSE (test code = 2217) 92 MG/DL BUN (test code = 2208) 15 MG/DL CREATININE (test code = 2214) 0.84 MG/DL eGFR AMER. (test cod e = 18892) 87 ML/MIN/1.73 eGFR NON- AMER. (test code = 31908) 75 ML/MIN/1.73 CALC BUN/CREAT (test code = 2235) 18 RATIO SODIUM (test code = 2231) 140 MEQ/L POTASSIUM (test code = 2228) 4.2 MEQ/L CHLORIDE (test code = 2215) 105 MEQ/L CARBON DIOXIDE (test code = 2206) 24 MEQ/L CALCIUM (test code = 2209) 9.0 MG/DL PROTEIN, TOTAL (test code = 2229) 7.3 G/DL ALBUMIN (test code = 2201) 4.6 G/DL CALC GLOBULIN (test code = 2240) 2.7 G/DL CALC A/G RATIO (test code = 2234) 1.7 RATIO BILIRUBIN, TOTAL (test code = 2207) 0.2 MG/DL ALKALINE PHOSPHATASE (test code = 2204) 84 U/L AST (test code = 2218) 23 U/L ALT (test code = 2219) 15 U/L Robert Boothe [id number] 00:00:00* Test Item Value Reference Range Interpretation Comme nts TSH, THIRD GENERATION (test code = 2821) 0.078 UIU/ML Robert F AustinCOMPREHENSIVE METABOLIC [id number] 00:00:00* Test Item Value Reference Range Interpretation Comme nts GLUCOSE (test code = 2217) 92 MG/DL BUN (test code = 2208) 15 MG/DL CREATININE (test code = 2214) 0.84 MG/DL eGFR AMER. (test cod e = 09495) 87 ML/MIN/1.73 eGFR NON- AMER. (test code = 99623) 75 ML/MIN/1.73 CALC BUN/CREAT (test code = 2235) 18 RATIO SODIUM (test code = 2231) 140 MEQ/L POTASSIUM (test code = 2228) 4.2 MEQ/L CHLORIDE (test code = 2215) 105 MEQ/L CARBON DIOXIDE (test code = 2206) 24 MEQ/L CALCIUM (test code = 2209) 9.0 MG/DL PROTEIN, TOTAL (test code = 2229) 7.3 G/DL ALBUMIN (test code = 2201) 4.6 G/DL CALC GLOBULIN (test code = 2240) 2.7 G/DL CALC A/G RATIO (test code = 2234) 1.7 RATIO BILIRUBIN, TOTAL (test code = 2207) 0.2 MG/DL ALKALINE PHOSPHATASE (test code = 2204) 84 U/L AST (test code = 2218) 23 U/L ALT (test code = 2219) 15 U/L Robert Colunga
--- NOTE | 2024-05-19 07:45 | RAD REPORT ---
EXAMINATION: XR LEFT FOREARM CLINICAL INDICATION: PAIN TECHNIQUE: Multiple projections of the left forearm were obtained. COMPARISON: No prior exam. FINDINGS: Mild bony remodeling of the distal radius and ulnar metaphyses likely related to prior trau ma. No acute fracture or dislocation suspected.
--- NOTE | 2024-05-19 07:46 | RAD REPORT ---
EXAMINATION: XR LEFT HUMERUS HISTORY: previous non healing fracture, fall today;Pain TECHNIQUE: Multiple views of the left humerus were obtained. COMPARISON: 04/26/2024 FINDINGS: Abnormal configuration of the proximal left humerus noted with moderate displacement and so mewhat inferior position of the fractured humeral head relative to the glenoid. There is moderate lucency in bony hypertrophy present about the fractures site likely indicating incomplete healing.
[2024-05-19] MEDS ORDERED: TRAMADOL HCL 50 MG TAB ONE (09:06)
--- NOTE | 2024-05-19 09:06 | EDPHYS ---
Physician Documentation [facility] Name: Samantha Decker Age: 63 yrs Sex: Female : 1960 Arrival Date: 05/19/2024 Time: 06:40 Bed 8 Private MD: ED Physician Eleuterio Vargas HPI: 05/19 07:22 This 63 yrs old Female presents to ER via Ambulatory with complaints of Shoulder Injury.rn 07:22 The patient or guardian complains of decreased range of motion, an injury, pain. left rn shoulder. Onset: The symptoms/episode began/occurred this morning. Modifying factors: the symptoms are alleviated by remaining still, The symptoms are aggravated by movement, rotation of arm. Severity of symptoms: At their worst the symptoms were moderate, in the emergency department the symptoms are unchanged. The patient has not experienced similar symptoms in the past. The patient has not recently seen a physician. Historical: - Allergies: 07:05 No Known Allergies; iw - PMHx: 07:05 acid reflux; Anxiety; Hypertensive disorder; Hypothyroidism; insomnia; iw - PSHx: 07:05 section; iw - Immunization history:: Adult Immunizations up to date. - Infectious Disease History:: Denies. - Social history:: Smoking status: Patient reports the use of cigarette tobacco products, denies chronic smoking, but will smoke occasionally. - Family history:: not pertinent. - Hospitalizations: : No recent hospitalization is reported. ROS: 07:24 Constitutional: Negative for fever, chills, and weight loss, Neck: Negative for injury, rn pain, and swelling, MS/Extremity: Positive for left arm/shoulder injury Neuro: Negative for weakness, numbness, tingling, and seizure, Exam: 07:24 Constitutional: This is a well developed, well nourished patient who is awake, alert, rn and in no acute distress. MS/ Extremity: Pulses equal, no cyanosis. Neurovascular intact. Tenderness to palpation mid and proximal left humerus without gross deformity. Limited range of motion of the left shoulder that patient states present since September when she broke her humerus. No focal elbow or wrist tenderness or deformity. Does report mild pain in forearm with rotation Vital Signs: 07:03 BP 149 / 98; Pulse 84; Resp 16; Temp 97; Pulse Ox 97% on R/A; Weight 70.31 kg; Height 5 iw ft. 7 in. ; Pain 9/10; 09:16 BP 144 / 76; Pulse 73; Resp 17; Temp 97.8; Pulse Ox 100% ; ap3 07:03 Body Mass Index 24.28 (70.31 kg, 170.18 cm) iw 07:03 Pain Scale: Adult iw MDM: 06:57 Medical Screening Exam initiated rn 09:03 Differential diagnosis: humeral head fracture, glenoid fracture, DJD. Data reviewed: rn vital signs, nurses notes, radiologic studies, plain films, and as a result, I will discharge patient. Counseling: I had a detailed discussion with the patient and/or guardian regarding the historical points, exam findings, and any diagnostic results supporting the discharge/admit diagnosis, radiology results, the need for outpatient follow up, to return to the emergency department if symptoms worsen or persist or if there are any questions or concerns that arise at home. Special discussion: I discussed with the patient/guardian in detail that at this point there is no indication for admission to the hospital. It is understood, however, that if the symptoms persist or worsen the patient needs to return immediately for re-evaluation. Based on the history and exam findings, there is no indication for further emergent testing or inpatient evaluation. I discussed with the patient/guardian the need to see the orthopedic surgeon for further evaluation of the symptoms. ED course: X-ray left shoulder images show previous nonhealing fracture of the proximal humerus with mild subluxation of the humeral head that was present in the past. Patient reports at baseline since fracture in September has only had about 15 to 20% range of motion with the left shoulder. Patient states constantly feels a shifting day-to-day and is not a new finding. Reexamined patient and patient states range of motion is at her baseline. Already has follow-up with her orthopedist next week. Will place in shoulder immobilizer and discharged home with return precautions.. 09:06 ED course: On reexamination humeral head does seem in glenoid and does not seem to be rn dislocated. Might have mild subluxation and be a sign of ligamentous injury or further ligamentous injury compared to previous injury. Patient states feels at baseline and does not seem dislocated. Has more pain from fall today but does not report worsening range of motion from her baseline.. 05/19 07:18 Order name: XRAY Humerus LEFT; Complete Time: 08:02 rn 05/19 07:23 Order name: Forearm Left XRAY; Complete Time: 08:02 rn 05/19 09:00 Order name: Shoulder Immobilizer; Complete Time: 09:16 rn Administered Medications: 09:16 Drug: traMADol PO 50 mg PO once Route: PO; ap3 09:16 Follow up: Response: Medication administered at discharge. ap3 Disposition Summary: 05/19/24 09:05 Discharge Ordered Notes: Location: Home rn Problem: an ongoing problem rn Symptoms: have improved rn Condition: Stable rn Diagnosis - Contusion of left shoulder rn - Non healing left shoulder fracture rn Followup: rn - With: Private Physician - When: As needed - Reason: Recheck today's complaints, Re-evaluation by your physician Discharge Instructions: - Discharge Summary Sheet rn - How to Use a Shoulder Immobilizer rn - Shoulder Pain rn Forms: - Medication Reconciliation Form rn - Antibiotic belt turner - Prescription Opioid Use rn - Patient Portal Instructions rn - Leadership Thank You Letter rn Prescriptions: - Tramadol 50 mg Oral Tablet - take 1 tablet ORAL route every 8 hours as needed; 12 tablet; Refills: 0, rn Product Selection Permitted Signatures: Dispatcher [employer] Patricia Conti RN RN Eleuterio Valdivia MD MD rn Prokisch, Amanda, RN RN ap3
--- NOTE | 2024-05-19 09:06 | ER ---
Nurse's Notes [facility] Name: Samantha Decker Age: 63 yrs Sex: Female : 1960 Arrival Date: 05/19/2024 Time: 06:40 Bed 8 Private MD: Diagnosis: Contusion of left shoulder;Non healing left shoulder fracture Presentation: 05/19 07:03 Chief complaint: Patient states: broke her left humerus in September, it did not heal right, iw is due for surgery in June , fell this morning on it , wants to make sure it's ok, has pain from shoulder to right hand. Coronavirus screen: At this time, the client does not indicate any symptoms associated with coronavirus-19. Ebola Screen: No symptoms or risks identified at this time. Initial Sepsis Screen: Does the patient meet any 2 criteria? No. Patient's initial sepsis screen is negative. Does the patient have a suspected source of infection? No. Patient's initial sepsis screen is negative. Risk Assessment: Do you want to hurt yourself or someone else? Patient reports no desire to harm self or others. Onset of symptoms was May 19, 2024. 07:03 Method Of Arrival: Ambulatory iw 07:03 Acuity: KARRIE 4 iw Triage Assessment: 09:17 Injury Description: fall. ap3 Historical: - Allergies: 07:05 No Known Allergies; iw - PMHx: 07:05 acid reflux; Anxiety; Hypertensive disorder; Hypothyroidism; insomnia; iw - PSHx: 07:05 section; iw - Immunization history:: Adult Immunizations up to date. - Infectious Disease History:: Denies. - Social history:: Smoking status: Patient reports the use of cigarette tobacco products, denies chronic smoking, but will smoke occasionally. - Family history:: not pertinent. - Hospitalizations: : No recent hospitalization is reported. Screenin:32 [facility] ED Fall Risk Assessment (Adult) History of falling in the last 3 months, ap3 including since admission Yes- fall prone (multiple falls) (3 pts) Confusion or Disorientation No (0 pts) Intoxicated or Sedated Yes (3 pts) Impaired Gait No (0 pts) Mobility Assist Device Used No (0 pt) Altered Elimination No (0 pt) Score/Fall Risk Level 3 or more points = High Risk Oriented to surroundings, Maintained a safe environment, Educated pt \T\ family on fall prevention, incl call for assistance when getting out of bed, Assessed \T\ reinforced patient's understanding of fall precautions, Hourly rounding (assess needs \T\ fall precautionary measures) done, Used ambulatory aids as needed (educated on \T\ assisted with), Used gait belt as appropriate Implemented a Fall Risk Plan of Care, Remained w/in arm's length of patient and in sight while toileting, Offered frequent toileting (1:1 observation), Remained with patient while ambulating. Abuse screen: Denies threats or abuse. Nutritional screening: No deficits noted. Tuberculosis screening: Assessment: 07:31 General: Appears uncomfortable, Behavior is calm, cooperative, appropriate for age. ap3 Pain: Complains of pain in left shoulder Pain currently is 9 out of 10 on a pain scale. Neuro: Level of Consciousness is awake, alert, obeys commands, Oriented to person, place, time, situation, Appropriate for age. Cardiovascular: Patient's skin is warm and dry. Respiratory: Airway is patent Respiratory effort is even, unlabored, Respiratory pattern is regular, symmetrical. Musculoskeletal: Reports pain in left shoulder. Vital Signs: 07:03 BP 149 / 98; Pulse 84; Resp 16; Temp 97; Pulse Ox 97% on R/A; Weight 70.31 kg; Height 5 iw ft. 7 in. ; Pain 9/10; 09:16 BP 144 / 76; Pulse 73; Resp 17; Temp 97.8; Pulse Ox 100% ; ap3 07:03 Body Mass Index 24.28 (70.31 kg, 170.18 cm) iw 07:03 Pain Scale: Adult iw ED Course: 06:43 Patient arrived in ED. gm2 06:57 Eleuterio Vargas MD is Attending Physician. rn 07:05 Triage completed. iw 07:05 Arm band placed on. iw 07:31 Jazmyn Champagne, FAN is Primary Nurse. ap3 07:32 Patient has correct armband on for positive identification. Bed in low position. Call ap3 light in reach. Side rails up X 1. Provided Education on: call light education. Pulse ox on. NIBP on. 07:34 XRAY Humerus LEFT In Process Unspecified. EDMS 07:34 Forearm Left XRAY In Process Unspecified. EDMS 09:17 No provider procedures requiring assistance completed. Patient did not have IV access ap3 during this emergency room visit. Administered Medications: :16 Drug: traMADol PO 50 mg PO once Route: PO; ap3 09:16 Follow up: Response: Medication administered at discharge. ap3 Medication: 08:35 VIS not applicable for this client. ap3 Outcome: 09:05 Discharge ordered by . fan :17 Discharged to home ambulatory, ap3 :17 Condition: good :17 Discharge instructions given to patient, Instructed on discharge instructions, follow up and referral plans. medication usage, Demonstrated understanding of instructions, follow-up care, medications, Prescriptions given X 1, :17 Patient left the ED. ap3 Signatures: Dispatcher [employer] EDMS Patricia Clement RN Eleuterio Castro MD MD rn Prokisch, Amanda, RN RN ap3 Renee Kent 2
[2024-05-19 09:29] VITALS: BP 144/76; TEMP 97.8; O2SAT 100
== END 2024-05-19 09:17 | disposition home or self-care (01) ==
LOC: ER 06:40
DX: S40.012A Contusion of left shoulder, initial encounter (principal); S42.302G Unspecified fracture of shaft of humerus, left arm, subsequent encounter for fracture with delayed healing; I10 Essential (primary) hypertension; E03.9 Hypothyroidism, unspecified; G47.00 Insomnia, unspecified; F17.210 Nicotine dependence, cigarettes, uncomplicated
CPT/HCPCS: 99284